=== PATIENT | female | born 1965 | race Caucasian/White ===

== ENCOUNTER 2017-04-04 16:51 | Inpatient (IN) | payer OTHER ==
[2017-04-04] MEDS ORDERED: Magnesium Sulfate 2 GM/100 ML BAG ONE (17:39)
[2017-04-04] MEDS ORDERED: Acetaminophen 325 MG TAB ONE (18:59)
[2017-04-04] MEDS ORDERED: Mag-Al 1200 mg/1200 mg/30 ML UDCUP PO PRN (20:35)
[2017-04-04] MEDS ORDERED: Bisacodyl 10 MG SUPP PR PRN (20:35)
[2017-04-04 23:22] VITALS: BMI 43.7
[2017-04-05] MEDS: Nicotine 21 MG PATCH TD SCH ×2 (00:12→22:15)
[2017-04-05] MEDS ORDERED: traZODone HCl 150 MG TAB PO SCH (01:30)
[2017-04-05] MEDS ORDERED: Pregabalin 50 MG CAP PO SCH (01:30)
[2017-04-05] MEDS: traZODone HCl 150 MG TAB PO SCH ×2 (01:52→20:08)
[2017-04-05] MEDS: Pregabalin 50 MG CAP PO SCH ×3 (01:53→20:09)
[2017-04-05] MEDS: Acetaminophen 325 MG TAB PO PRN ×3 (01:54→20:16)
[2017-04-05] MEDS: Albuterol Sulfate 2.5 mg/3 ml Neb NEB PRN (01:59)
[2017-04-05] MEDS ORDERED: Magnesium 2 GM/NS 0.9% 100 ML 2 GM in Premix Bag 1 BAG IVPB SCH (02:00)
[2017-04-05 03:14] LABS: Analyzer IN Cardio OR; Base Excess (BEa) -3.1 mEq/L (0 (+/-) 2.5); CO2 Tension 50.6 mmHg (35.0-45.0); Calcium, Ionized 1.3 mmol/L (1.12-1.30); Hematocrit-ABG 48.2 % (36.0-47.0); Hemoglobin (Hb) 15.3 g/dL (12.0-16.0); O2 Tension (PaO2) 63.7 mmHg (80.0-100.0); Puncture Site RRA; pH, Arterial 7.29 (7.35-7.45)
--- NOTE | 2017-04-05 04:06 | PDOC.EVN ---
Event Note - Event Note Event Note: Dr. Grier and I were called to room to evaluate patient, tachypneic, anxious, retracting. ABG showed hypercapnea of 50.6, pH 7.293. Pt had just been given a duoneb treatment, finished steroids and levaquin running. Breath sounds showed decreased air movement, patient in mod resp distress. Ordered mag, 10 ml treatment, 2nd IV started. Pt's respiratory status immediately improving with duoneb treatment. Discussed Bipap if not improving. Checked on after completion of treatments, pt resting comfortably, sleeping, no resp distress.
[2017-04-05 05:18] LABS: #Lymphocytes 0.6 thou/uL (1.20-3.40); #Monocytes 0.1 thou/uL (0.11-0.59); #Neutrophils 7.1 thou/uL (1.40-6.50); %Eosinophils 0.1 % (0.0-10.0); %Lymphocytes 7.7 % (21.0-51.0); %Monocytes 1.2 % (0.0-10.0); %Neutrophils 90.9 % (42.0-75.0); Hemoglobin 14.1 g/dL (12.0-16.0); Mean Corpuscular HGB CONC 31.2 g/dL (32.0-36.0); Mean Corpuscular Hemoglobin 31.6 pg (27.0-31.0); Platelet Count 171 thou/uL (130-400); RBC Distribution Width 12.1 % (11.5-14.5); Red Blood Cell (RBC) Count 4.47 mill/uL (4.20-5.40); White Blood Cell (WBC) Count 7.9 thou/uL (4.8-10.8)
[2017-04-05 05:30] LABS: Anion Gap 13 mmol/L (10-20); BUN (Urea Nitrogen) 19 mg/dL (9.8-20.1); Calc. Creatinine Clearance 166 mL/min (70-130); Calcium 9.4 mg/dL (7.8-10.44); Carbon Dioxide 20 mmol/L (22-29); Chloride 109 mmol/L (98-107); Estimated GFR-MDRD 88; Glucose 169 mg/dL (70-105); Potassium 4.2 mmol/L (3.5-5.1); Sodium 138 mmol/L (136-145)
[2017-04-05 06:25] LABS: Cardiac Risk 2.3 (Less than 4.5)
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
[2017-04-05] MEDS: Levothyroxine Sodium 25 MCG TAB PO SCH (06:56)
--- NOTE | 2017-04-05 08:32 | PDOC.FM ---
- Subjective Subjective: Pt states that she is still SOB, however it is improved from yesterday. She also complains of continued wet cough. She denies CP or heart palpitation. She states that she has continued anxiety and is asking for meds to help. She denies onset of new symptoms per ROS. There were no acute events over night. - Objective MAR Reviewed: Yes Vital Signs & Weight: Vital Signs (12 hours) Temp Pulse Resp BP Pulse Ox 04/05/17 06:45 107 H 25 H 97 04/05/17 04:00 98.1 F 109 H 19 121/64 96 04/05/17 01:48 108 H 32 H 94 L 04/04/17 23:52 98.0 F 100 26 H 119/73 93 L 04/04/17 23:06 96 26 H 92 L 04/04/17 20:35 98.1 F 102 H 24 H 122/83 91 L Weight Weight 112.066 kg I&O: 04/04/17 04/05/17 04/06/17 06:59 06:59 06:59 Intake Total 590 Output Total 350 Balance 240 Result Diagrams: 04/05/17 04:56 04/05/17 04:56 <Kip Mccracken - Last Filed: 04/05/17 08:30> - Objective Vital Signs & Weight: Vital Signs (12 hours) Temp Pulse Resp BP Pulse Ox 04/05/17 11:35 98.2 F 115 H 22 H 155/74 H 95 04/05/17 10:19 98.1 F 114 H 24 H 135/93 H 94 L 04/05/17 10:05 108 H 25 H 92 L 04/05/17 06:45 107 H 25 H 97 04/05/17 04:00 98.1 F 109 H 19 121/64 96 04/05/17 01:48 108 H 32 H 94 L Weight Weight 112.066 kg I&O: 04/04/17 04/05/17 04/06/17 06:59 06:59 06:59 Intake Total 590 Output Total 350 Balance 240 Result Diagrams: 04/05/17 04:56 04/05/17 04:56 <Ghulam Maciel - Last Filed: 04/05/17 12:36> Phys Exam - Physical Examination Constitutional: NAD HEENT: PERRLA, moist MMs Neck: no nodes, no JVD, full ROM Wheezing throughout Cardiovascular: RRR, no significant murmur difficult to hear dt wheezing Gastrointestinal: soft, non-tender Musculoskeletal: no edema Neurological: non-focal, normal sensation Lymphatic: no nodes Psychiatric: A&O x 3 Deviation from normal: Pt is anxious Skin: no rash <Kip Mccracken - Last Filed: 04/05/17 08:30> Dx/Plan (1) Acute respiratory failure with hypoxia Code(s): J96.01 - ACUTE RESPIRATORY FAILURE WITH HYPOXIA Status: Acute (2) COPD with acute exacerbation Code(s): J44.1 - CHRONIC OBSTRUCTIVE PULMONARY DISEASE W (ACUTE) EXACERBATION Status: Chronic (3) Anxiety Code(s): F41.9 - ANXIETY DISORDER, UNSPECIFIED Status: Chronic (4) Hypothyroid Code(s): E03.9 - HYPOTHYROIDISM, UNSPECIFIED Status: Chronic (5) History of torsades de pointes Code(s): Z86.79 - PERSONAL HISTORY OF OTHER DISEASES OF THE CIRCULATORY SYSTEM Status: Resolved - Plan Plan: 1. Acute hypoxic respiratory failure secondary to COPD exacerbation - Pt O2 sat in mid 90s on 3L. Work to wean O2 - continue IV steroids, consider moving to PO tomorrow - continue levaquin 2. Anxiety - pt having significant psychomotor symptoms - consider low dose ativan if symptoms persist 3. Hx of Torsades de points - pt had a short run in the ED, was given Mg and the rhythm resolved - monitor on tele 4. Hypothyroid - continue home synthroid <NawafKip - Last Filed: 04/05/17 08:30> Attending Addendum - Attending Addendum I personally evaluated the patient and discussed the management with Dr. Mccracken. I agree with the History, Examination, Assessment and Plan documented above with any addition or exceptions noted below. Patient with severe bronchoconstriction, wheezing, and moderate respiratory distress despite Mg, steroids, and multiple rounds of nebs. No lung findings to suggest infiltrate or infectious process. She is requiring supplemental O2 to maintain normal oxygenation. She becomes short of breath with minimal conversation, even immediately after a neb treatment. Maximize therapy and consider another round of Mg if she decompensates. Will discuss case with Pulmonology. She is also very anxious likely due to hypoxia and air hunger and underlying chronic anxiety. Will give trial of small dose of Ativan for calming , but need to closely monitor and ensure it does not suppress her respiratory drive. <Ghulam Maciel R - Last Filed: 04/05/17 12:36>
[2017-04-05] MEDS: Mometasone/Formoterol 120 PUFF INHALER INH SCH ×2 (09:56→18:38)
[2017-04-05] MEDS: Enoxaparin Sodium 40 MG/0.4 ML SYRINGE SC SCH (10:22)
[2017-04-05] MEDS: Sodium Chloride 0.9% 10 ML ONE ×3 (10:22→18:05)
[2017-04-05] MEDS ORDERED: Lorazepam 2 MG/ML VIAL SLOW IVP SCH (12:00)
[2017-04-05] MEDS ORDERED: Lorazepam 0.5 MG TAB PO SCH (12:00)
[2017-04-05] MEDS ORDERED: Lorazepam 2 MG/ML VIAL ONE (12:25)
[2017-04-05] MEDS ORDERED: Furosemide 20 MG/2 ML VIAL SLOW IVP SCH (20:45)
[2017-04-06] MEDS ORDERED: Lorazepam 0.5 MG TAB PO SCH (01:00)
--- NOTE | 2017-04-06 01:18 | CON ---
DATE OF CONSULTATION: 04/05/2017 SERVICE: Pulmonary Medicine. REASON FOR CONSULTATION: COPD exacerbation. HISTORY OF PRESENT ILLNESS: The patient is a 51-year-old white female with past medical history sign ificant for COPD. This was diagnosed roughly 10 years ago. She takes Symbicort basically around the clock. She does not take a scheduled twice daily. She takes it much more frequent than that. She also has albuterol nebulizers in different forms. She was in her usual state of health until roughly one month ago when she had a steady increase in dyspnea on exertion. She has new onset swelling in the bilateral lower extremities. She presented to the emergency department and was treated for COPD exacerbation. Her volume status was also addressed. She feels much improved today compared to yeste rday. She was not having any fevers. She did have cough, productive of green yellow sputum. She de nies any current palpitations, or chest discomfort other than when she coughs. PAST MEDICAL HISTORY: 1. COPD. 2. Anxiety disorder. 3. Dyslipidemia. 4. Hypothyroidism. 5. Vitiligo. 6. Hepatitis C, status post course of therapy. PAST SURGICAL HISTORY: 1. section x2. 2. Sinus surgery. 3. I&D of scalp. 4. Bilateral knee replacements. 5. Rotator cuff surgery on the right. 6. Back surgery with hardware in place. ALLERGIES: MORPHINE, KEFLEX. MEDICATIONS: List of her inpatient medications were reviewed, a couple of small updates were made. FAMILY HISTORY: Noncontributory. SOCIAL HISTORY: She has a [id number] history of smoking and continues to smoke 3/4 of a pack on a daily basis. She uses alcohol rarely. Outside of marijuana, she denies any illicit drugs. She has no exposure to chemicals, dust, asbestosis, or tuberculosis. REVIEW OF SYSTEMS: General, head, ears, eyes, nose, throat, cardiovascular, respiratory, GI, , mus culoskeletal, neurologic and skin is negative except as mentioned in the HPI. PHYSICAL EXAMINATION: VITAL SIGNS: Afebrile, pulse 123, blood pressure 143/94, respirations 26, saturation 95% on 2-03/27 li ters nasal cannula. GENERAL: The patient is awake and alert, in no apparent distress. LUNGS: Decent air entry. There are crackles, rhonchi, and wheezing all present. She has very reduc ed air entry, particularly with exhalation. She has a prolonged expiratory phase. HEART: Normal rate. Tachycardic. Regular. ABDOMEN: Soft, nontender, nondistended. Bowel sounds are positive. MUSCULOSKELETAL: No cyanosis or clubbing. There is 1-2+ pitting in the bilateral lower extremities. GENITOURINARY: No Falk. NEUROLOGIC: Grossly nonfocal. LABORATORY DATA: WBC 7.9, hemoglobin 14.1, platelets 171,000. PH 7.29, pCO2 50.6, pO2 63. Basic ut tabolic profile was essentially unremarkable. Liver function studies are unremarkable. BNP is negat kyra and troponin is negative x1. TSH is normal. Urinalysis is unremarkable. Urine drug screen is n egative. IMAGING: Chest x-ray demonstrates motion artifact. Soft tissue attenuation reduces the sensitivity of the study. No obvious acute cardiopulmonary abnormality is identified. ASSESSMENT: 1. Acute hypoxic respiratory failure. 2. Chronic obstructive pulmonary disease with acute exacerbation (versus asthma). 3. Obstructive sleep apnea, suspected. 4. Minimal volume overload. PLAN: We will continue her nebulized medications, antibiotics, and steroids. Steroids will be reduc ed to 40 mg of prednisone on a daily basis. This can be interrupted after a period of 2 weeks (treat ing an asthma exacerbation, not COPD exacerbation). She does have minimal volume overload. I will g kyra her a dose of Lasix tomorrow morning. In the outpatient setting, she will need to follow up with me. I intend to form a logical COPD diagnosis, and sent her for polysomnogram as my suspicion is sh james suffers from obstructive sleep apnea given her multiple features and symptoms. I will continue to follow up for the time being.
[2017-04-06 05:25] LABS: #Lymphocytes 0.8 thou/uL (1.20-3.40); #Monocytes 0.6 thou/uL (0.11-0.59); #Neutrophils 13.1 thou/uL (1.40-6.50); %Eosinophils 0.1 % (0.0-10.0); %Lymphocytes 5.4 % (21.0-51.0); %Monocytes 4.4 % (0.0-10.0); %Neutrophils 90.1 % (42.0-75.0); Mean Corpuscular HGB CONC 31.9 g/dL (32.0-36.0); Mean Corpuscular Hemoglobin 32.6 pg (27.0-31.0); Platelet Count 160 thou/uL (130-400); Red Blood Cell (RBC) Count 4.28 mill/uL (4.20-5.40); White Blood Cell (WBC) Count 14.5 thou/uL (4.8-10.8)
[2017-04-06 05:38] LABS: Anion Gap 11 mmol/L (10-20); BUN (Urea Nitrogen) 23 mg/dL (9.8-20.1); Calc. Creatinine Clearance 151 mL/min (70-130); Calcium 9.4 mg/dL (7.8-10.44); Carbon Dioxide 28 mmol/L (22-29); Chloride 105 mmol/L (98-107); Estimated GFR-MDRD 79; Glucose 130 mg/dL (70-105); Potassium 5.2 mmol/L (3.5-5.1); Sodium 139 mmol/L (136-145)
[2017-04-06] MEDS: Levothyroxine Sodium 25 MCG TAB PO SCH (05:54)
[2017-04-06] MEDS: Furosemide 20 MG/2 ML VIAL SLOW IVP SCH (05:54)
[2017-04-06] MEDS: Acetaminophen 325 MG TAB PO PRN ×3 (06:02→20:35)
[2017-04-06] MEDS ORDERED: Sodium Chloride 0.9% 1,000 ML IV SCH (06:45)
--- NOTE | 2017-04-06 06:47 | PDOC.FM ---
- Subjective Subjective: Pt feels better today and had improved, but still significant SOB. Productive cough continues. She states that she feels less anxious. She denies symptoms of chest pain, palpitation, dizziness, muscle pain/weakness and all other symptoms in ROS. There were no acute events over night. - Objective MAR Reviewed: Yes Vital Signs & Weight: Vital Signs (12 hours) Temp Pulse Resp BP Pulse Ox 04/06/17 04:00 99.2 F 104 H 22 H 133/74 95 04/06/17 02:24 108 H 28 H 97 04/05/17 22:34 112 H 32 H 96 04/05/17 20:05 98.2 F 121 H 24 H 139/97 H 94 L Weight Weight 112.066 kg I&O: 04/04/17 04/05/17 04/06/17 06:59 06:59 06:59 Intake Total 590 Output Total 350 Balance 240 Result Diagrams: 04/06/17 05:00 04/06/17 05:00 <Kip Mccracken - Last Filed: 04/06/17 08:33> - Objective Vital Signs & Weight: Vital Signs (12 hours) Temp Pulse Resp BP BP Pulse Ox 04/06/17 10:49 105 H 20 96 04/06/17 08:05 98.6 F 112 H 24 H 110/74 93 L 04/06/17 07:26 116 H 30 H 95 04/06/17 04:00 99.2 F 104 H 22 H 133/74 95 04/06/17 02:24 108 H 28 H 97 Weight Weight 112.576 kg I&O: 04/05/17 04/06/17 04/07/17 06:59 06:59 06:59 Intake Total 590 850 Output Total 350 1100 Balance 240 -250 Result Diagrams: 04/06/17 05:00 04/06/17 05:00 <Ghulam Maciel - Last Filed: 04/06/17 11:27> Phys Exam - Physical Examination Pt has significant work of breathing HEENT: PERRLA, moist MMs Neck: no nodes Wheezing throughout, somewhat improved from yesterday Cardiovascular: RRR, no significant murmur Difficult exam dt wheezing Gastrointestinal: soft, non-tender, no distention, positive bowel sounds 1+ pitting edema to knee bl Neurological: non-focal, normal sensation, moves all 4 limbs Lymphatic: no nodes Psychiatric: normal affect, A&O x 3 Skin: no rash <Kip Mccracken - Last Filed: 04/06/17 08:33> Dx/Plan (1) Acute respiratory failure with hypoxia Code(s): J96.01 - ACUTE RESPIRATORY FAILURE WITH HYPOXIA Status: Acute (2) COPD with acute exacerbation Code(s): J44.1 - CHRONIC OBSTRUCTIVE PULMONARY DISEASE W (ACUTE) EXACERBATION Status: Chronic (3) Anxiety Code(s): F41.9 - ANXIETY DISORDER, UNSPECIFIED Status: Chronic (4) Hypothyroid Code(s): E03.9 - HYPOTHYROIDISM, UNSPECIFIED Status: Chronic (5) History of torsades de pointes Code(s): Z86.79 - PERSONAL HISTORY OF OTHER DISEASES OF THE CIRCULATORY SYSTEM Status: Resolved (6) Hyperkalemia Code(s): E87.5 - HYPERKALEMIA Status: Acute - Plan Plan: 1. Acute hypoxic respiratory failure secondary to COPD exacerbation - Pt O2 sat in mid 90s on 2L. Work to wean O2 - Pulm, Dr Cardona, has been consulted. - continue PO steroids and abx - Pt has started to show improvement in respiratory rate and pulse over the past 18 hours. - Pt will need outpt follow up and treatment w/pulm 2. Anxiety - Increased dose of cymbalta today, will recommend her dosing be reevaluated by PCP upon discharge - ativan is available as PRN, however will attempt to no use dt concern for respiratory suppression. 3. Hx of Torsades de points - per history had a short run in the ED, was given Mg and the rhythm resolved. Unable to find EKG of this rhythm, per history it was seen on monitor in ED. - monitor on tele 4. Hypothyroid - continue home synthroid 5. Hyperkalemia - Pt will get lasix today, will repeat BMP in PM and consider further treatment to lower K if it remains elevated or if she becomes symptomatic - Currently pt has no msk symptoms attributed to elevated K or tele abnormalities, therefore it is reasonable to slowly lower K. Dispo: pt is stable and improving. Will consider discharge when O2 need begins to improve, likely in the next 48 hours <Kip Mccracken - Last Filed: 04/06/17 08:33> Attending Addendum - Attending Addendum I personally evaluated the patient and discussed the management with Dr. Mccracken. I agree with the History, Examination, Assessment and Plan documented above with any addition or exceptions noted below. Patient with some improvement today. Pulm on board. Continue nebs, steroids. Anticipate slow recovery due to her degree on bronchospasm and increased respiratory effort. Would consider that if she has been using Symbicort continuously that she may be having some reflex bronchospasm. <Ghulam Maciel - Last Filed: 04/06/17 11:27>
[2017-04-06] MEDS: Mometasone/Formoterol 120 PUFF INHALER INH SCH ×2 (07:27→18:34)
[2017-04-06] MEDS: Pregabalin 50 MG CAP PO SCH ×2 (09:05→20:31)
[2017-04-06] MEDS: DULoxetine 30 MG CAP PO SCH (09:06)
[2017-04-06] MEDS: predniSONE 20 MG TAB PO SCH (09:07)
[2017-04-06] MEDS: Enoxaparin Sodium 40 MG/0.4 ML SYRINGE SC SCH (09:07)
--- NOTE | 2017-04-06 18:31 | PDOC.EVN ---
Event Note - Event Note Event Note: At apprx 1810 physician was paged to pts bedside dt being found with O2 sats in the mid 70s. RT was called for stat breathing treatment. It was then discovered that at some point the patients O2 tubing had been accidentally disconnected from the wall. With resumption of O2, her saturation quickly recovered to 99 on 50% O2 by mask. PE found wheezing in all lung cabrera consistent with this morning's exam. Pt is now stable and maintaining her O2 with RT at bedside. Plan to start CPAP/BiPAP HS. <Kip Mccracken - Last Filed: 04/06/17 18:25> Attending Addendum - Attending Addendum I personally evaluated the patient and discussed the management with Dr. Mccracken. I agree with the History, Examination, Assessment and Plan documented above with any addition or exceptions noted below. <Jun Neal - Last Filed: 04/06/17 20:02>
--- NOTE | 2017-04-06 19:39 | PRG ---
DATE OF SERVICE: 04/06/2017 SERVICE: Pulmonary Medicine. INTERVAL HISTORY: The patient is doing really quite well from a respiratory standpoint. Her shortne ss of breath has improved fairly dramatically over the past 24 hours. She currently denies any fever s or chills. She is coughing and bringing up a little bit of sputum. This seems to be slowing down. PHYSICAL EXAMINATION: VITAL SIGNS: Afebrile, pulse 112, blood pressure 110/74, respirations 20, saturation 96% on 3 liters nasal cannula. GENERAL: The patient is awake and alert, in no apparent distress. LUNGS: Slightly improved air entry. There is a prolonged expiratory phase with wheezing and crackle s both appreciated. HEART: Normal rate, regular. ABDOMEN: Soft, nontender, nondistended. Bowel sounds positive. MUSCULOSKELETAL: No cyanosis or clubbing. There is 1-2+ pitting in the bilateral lower extremities. GENITOURINARY: No Falk. NEUROLOGIC: Grossly nonfocal. LABORATORY DATA: Potassium 5.2. Basic metabolic profile is otherwise unremarkable. TSH was previou sly normal. WBC 14.5, hemoglobin 14.0. Platelets 160,000. Neutrophil count is 90%, which is downtr ending. ASSESSMENT: 1. Acute hypoxic and hypercapnic respiratory failure. 2. Chronic obstructive pulmonary disease with acute exacerbation (versus asthma). 3. Obstructive sleep apnea, suspected. 4. Volume overload, improving. PLAN: We will continue our steroids, nebulized medications, and antibiotics. From my perspective, t he patient is approaching a place where she can be considered for transition out of the hospital. We will continue to wean oxygen as tolerated. I would like for her to visit with me in the outpatient setting, so that we can clarify her underlying lung process, and evaluate her for sleep apnea. I do think she would benefit from being on CPAP therapy if indicated. We will also repeat her ABG in her chronic stable state to see whether or not she is chronic CO2 retainer. This is very likely given he r vague underlying lung disease.
[2017-04-06] MEDS: traZODone HCl 150 MG TAB PO SCH (20:32)
[2017-04-06] MEDS: Nicotine 21 MG PATCH TD SCH (20:35)
[2017-04-07] MEDS ORDERED: Lorazepam 0.5 MG TAB PO SCH (00:30)
[2017-04-07] MEDS: Acetaminophen 325 MG TAB PO PRN ×3 (04:21→20:31)
[2017-04-07 05:30] LABS: #Lymphocytes 1.4 thou/uL (1.20-3.40); #Monocytes 0.7 thou/uL (0.11-0.59); %Basophils 0.4 % (0.0-1.0); %Eosinophils 0.3 % (0.0-10.0); %Lymphocytes 17.6 % (21.0-51.0); %Monocytes 8.2 % (0.0-10.0); %Neutrophils 73.5 % (42.0-75.0); Hemoglobin 13.3 g/dL (12.0-16.0); Mean Corpuscular HGB CONC 31.1 g/dL (32.0-36.0); Mean Corpuscular Hemoglobin 32.3 pg (27.0-31.0); Mean Platelet Volume 7.2 fL (7.4-10.4); Platelet Count 150 thou/uL (130-400); RBC Distribution Width 12.1 % (11.5-14.5); Red Blood Cell (RBC) Count 4.14 mill/uL (4.20-5.40); White Blood Cell (WBC) Count 8.2 thou/uL (4.8-10.8)
[2017-04-07 05:51] LABS: Anion Gap 10 mmol/L (10-20); BUN (Urea Nitrogen) 25 mg/dL (9.8-20.1); Calc. Creatinine Clearance 180 mL/min (70-130); Calcium 9.4 mg/dL (7.8-10.44); Carbon Dioxide 34 mmol/L (22-29); Chloride 101 mmol/L (98-107); Estimated GFR-MDRD Greater than 90; Glucose 121 mg/dL (70-105); Potassium 4.3 mmol/L (3.5-5.1); Sodium 141 mmol/L (136-145)
[2017-04-07] MEDS: Levothyroxine Sodium 25 MCG TAB PO SCH (05:57)
[2017-04-07] MEDS: Furosemide 20 MG/2 ML VIAL SLOW IVP SCH (05:57)
--- NOTE | 2017-04-07 07:07 | PDOC.FM ---
- Subjective Subjective: Today pt states that she is still significantly SOB, however does better after a neb and with her CPAP last night. She denies chest pain or lightheadedness. She states that her anxiety is improving. After the previously documented event of having her O2 disconnected, there were no acute events over night. She denies all other symptoms in ROS. - Objective Vital Signs & Weight: Vital Signs (12 hours) Temp Pulse Resp BP BP Pulse Ox 04/07/17 04:00 98 F 104 H 22 H 168/75 H 100 04/07/17 02:38 103 H 26 H 94 L 04/06/17 22:20 109 H 30 H 96 04/06/17 20:30 97.8 F 98 20 132/86 96 04/06/17 20:26 96 18 96 Weight Weight 112.945 kg I&O: 04/06/17 04/07/17 04/08/17 06:59 06:59 06:59 Intake Total 850 1780 Output Total 1100 1900 Balance -250 -120 Result Diagrams: 04/07/17 04:53 04/07/17 04:53 Phys Exam - Physical Examination Pt is breathing easier than yesterday, but has continued increased effort HEENT: PERRLA, moist MMs Neck: no nodes Wheezing throughout, worse in the bases. Improved from yesterday. Decreased air movement Cardiovascular: no significant murmur Tachy Gastrointestinal: soft, non-tender Trace edema, improved Neurological: non-focal, normal sensation Lymphatic: no nodes Psychiatric: normal affect, A&O x 3 Skin: no rash Dx/Plan (1) Acute respiratory failure with hypoxia Code(s): J96.01 - ACUTE RESPIRATORY FAILURE WITH HYPOXIA Status: Acute (2) COPD with acute exacerbation Code(s): J44.1 - CHRONIC OBSTRUCTIVE PULMONARY DISEASE W (ACUTE) EXACERBATION Status: Chronic (3) Anxiety Code(s): F41.9 - ANXIETY DISORDER, UNSPECIFIED Status: Chronic (4) Hypothyroid Code(s): E03.9 - HYPOTHYROIDISM, UNSPECIFIED Status: Chronic (5) History of torsades de pointes Code(s): Z86.79 - PERSONAL HISTORY OF OTHER DISEASES OF THE CIRCULATORY SYSTEM Status: Resolved (6) Hyperkalemia Code(s): E87.5 - HYPERKALEMIA Status: Acute - Plan Plan: . Acute hypoxic respiratory failure secondary to COPD exacerbation - Pt O2 sat in mid 90s on 2L. Work to wean O2, was unable to do so yesterday - Pulm, Dr Cardona, has been consulted. - continue PO steroids and abx - Pt continues to have elevated RR, HR, and increased O2 demand as she is not normally on O2. - Pt will need outpt follow up and treatment w/pulm - Pt is clinically improving slowly 2. Anxiety - Increased dose of cymbalta today, will recommend her dosing be reevaluated by PCP upon discharge - Improved psychomotor symptoms from admission. 3. Hx of Torsades de points - per history had a short run in the ED, was given Mg and the rhythm resolved. Unable to find EKG of this rhythm, per history it was seen on monitor in ED. - monitor on tele 4. Hypothyroid - continue home synthroid 5. Hyperkalemia - Pt will get lasix today, will repeat BMP in PM and consider further treatment to lower K if it remains elevated or if she becomes symptomatic - Currently pt has no msk symptoms attributed to elevated K or tele abnormalities, therefore it is reasonable to slowly lower K. Dispo: pt is stable and improving. Will consider discharge when O2 need and effort to breathe shows significant improvement.
[2017-04-07] MEDS: Mometasone/Formoterol 120 PUFF INHALER INH SCH ×2 (07:21→18:57)
[2017-04-07] MEDS: predniSONE 20 MG TAB PO SCH (09:38)
[2017-04-07] MEDS: DULoxetine 30 MG CAP PO SCH (09:39)
[2017-04-07] MEDS: Enoxaparin Sodium 40 MG/0.4 ML SYRINGE SC SCH (09:39)
[2017-04-07] MEDS: Pregabalin 50 MG CAP PO SCH ×2 (12:26→20:30)
--- NOTE | 2017-04-07 19:00 | PRG ---
DATE OF SERVICE: 04/07/2017 SUBJECTIVE: She is better. She is still short of breath. OBJECTIVE: VITAL SIGNS: Sats are 92 on 2 liters, pulse 125, temperature 98, blood pressure 119/71. CHEST: Decreased breath sounds, prolonged expiration. CARDIAC: Sinus tachycardia. ABDOMEN: Soft. LABORATORY DATA: White count 8000, H&H 13 and 42, platelet count normal. Electrolytes are normal. IMPRESSION: 1. Chronic obstructive pulmonary disease exacerbation. 2. Bronchitis. 3. Pneumonia. PLAN: Continue antibiotics, nebulizer treatments, steroids.
[2017-04-07] MEDS: traZODone HCl 150 MG TAB PO SCH (20:29)
[2017-04-07] MEDS: Nicotine 21 MG PATCH TD SCH (20:31)
[2017-04-08] MEDS: Acetaminophen 325 MG TAB PO PRN (01:58)
[2017-04-08 05:15] LABS: #Lymphocytes 1.9 thou/uL (1.20-3.40); #Monocytes 0.6 thou/uL (0.11-0.59); #Neutrophils 2.7 thou/uL (1.40-6.50); %Basophils 0.2 % (0.0-1.0); %Eosinophils 0.7 % (0.0-10.0); %Lymphocytes 36.5 % (21.0-51.0); %Monocytes 11.3 % (0.0-10.0); %Neutrophils 51.3 % (42.0-75.0); Hemoglobin 12.9 g/dL (12.0-16.0); Mean Corpuscular HGB CONC 31.5 g/dL (32.0-36.0); Mean Corpuscular Hemoglobin 32.5 pg (27.0-31.0); Mean Platelet Volume 6.7 fL (7.4-10.4); Platelet Count 146 thou/uL (130-400); RBC Distribution Width 11.9 % (11.5-14.5); Red Blood Cell (RBC) Count 3.96 mill/uL (4.20-5.40); White Blood Cell (WBC) Count 5.2 thou/uL (4.8-10.8)
[2017-04-08 05:24] LABS: Anion Gap 9 mmol/L (10-20); BUN (Urea Nitrogen) 21 mg/dL (9.8-20.1); Calc. Creatinine Clearance 175 mL/min (70-130); Calcium 9.1 mg/dL (7.8-10.44); Carbon Dioxide 37 mmol/L (22-29); Chloride 100 mmol/L (98-107); Estimated GFR-MDRD Greater than 90; Glucose 95 mg/dL (70-105); Potassium 4.1 mmol/L (3.5-5.1); Sodium 142 mmol/L (136-145)
[2017-04-08] MEDS: Levothyroxine Sodium 25 MCG TAB PO SCH (06:04)
[2017-04-08] MEDS: Furosemide 20 MG/2 ML VIAL SLOW IVP SCH (06:04)
[2017-04-08] MEDS: Mometasone/Formoterol 120 PUFF INHALER INH SCH ×2 (07:02→18:36)
--- NOTE | 2017-04-08 07:35 | PDOC.FM ---
- Subjective Subjective: Pt states that she has had significant improvement in SOB over the past 24 hours. She denies onset of new symptoms. She admits to continued cough. She states that her anxiety has improved with CPAP. There were no acute events over night. - Objective MAR Reviewed: Yes Vital Signs & Weight: Vital Signs (12 hours) Temp Pulse Resp BP Pulse Ox 04/08/17 07:03 93 L 04/08/17 07:02 93 16 93 L 04/08/17 06:58 93 16 93 L 04/08/17 04:00 97.9 F 100 24 H 110/73 98 04/08/17 02:44 94 20 94 L 04/07/17 22:44 98 18 100 04/07/17 20:25 98.3 F 103 H 24 H 97/61 92 L Weight Weight 112.576 kg I&O: 04/07/17 04/08/17 04/09/17 06:59 06:59 06:59 Intake Total 1780 640 Output Total 1900 3325 Balance -120 -4830 Result Diagrams: 04/08/17 04:55 04/08/17 04:55 <Kip Mccracken - Last Filed: 04/08/17 07:33> - Objective Vital Signs & Weight: Vital Signs (12 hours) Temp Pulse Resp BP BP Pulse Ox 04/08/17 13:55 77 18 92 L 04/08/17 10:31 91 20 93 L 04/08/17 07:46 98.9 F 105 H 22 H 93 L 04/08/17 07:10 98.9 F 105 H 22 H 98/56 L 93 L 04/08/17 07:03 93 L 04/08/17 07:02 93 16 93 L 04/08/17 06:58 93 16 93 L 04/08/17 04:00 97.9 F 100 24 H 110/73 98 Weight Weight 112.576 kg I&O: 04/07/17 04/08/17 04/09/17 06:59 06:59 06:59 Intake Total 1780 640 Output Total 1900 3325 Balance -120 -4101 Result Diagrams: 04/08/17 04:55 04/08/17 04:55 <Jun Neal - Last Filed: 04/08/17 15:29> Phys Exam - Physical Examination Constitutional: NAD HEENT: moist MMs Neck: full ROM wheezing throughout, improved. Increaesd air movemet from yesterday, still limited Cardiovascular: RRR, no significant murmur Gastrointestinal: soft, non-tender, no distention Musculoskeletal: no edema Neurological: non-focal, normal sensation Psychiatric: normal affect, A&O x 3 Skin: no rash <Kip Mccracken - Last Filed: 04/08/17 07:33> Dx/Plan (1) Acute respiratory failure with hypoxia Code(s): J96.01 - ACUTE RESPIRATORY FAILURE WITH HYPOXIA Status: Acute (2) COPD with acute exacerbation Code(s): J44.1 - CHRONIC OBSTRUCTIVE PULMONARY DISEASE W (ACUTE) EXACERBATION Status: Chronic (3) Anxiety Code(s): F41.9 - ANXIETY DISORDER, UNSPECIFIED Status: Chronic (4) Hypothyroid Code(s): E03.9 - HYPOTHYROIDISM, UNSPECIFIED Status: Chronic (5) History of torsades de pointes Code(s): Z86.79 - PERSONAL HISTORY OF OTHER DISEASES OF THE CIRCULATORY SYSTEM Status: Resolved (6) Hyperkalemia Code(s): E87.5 - HYPERKALEMIA Status: Resolved - Plan Plan: . Acute hypoxic respiratory failure secondary to COPD exacerbation - Pt O2 sat in mid 90s on 0.5L. Continue to work to wean O2, pt has made improvement over past 24 hours - Pulm, Dr Cardona, has been consulted. - continue PO steroids and abx - Vitals improving. Typically normal HR and RR - Pt will need outpt follow up and treatment w/pulm 2. Anxiety - Increased dose of cymbalta today, will recommend her dosing be reevaluated by PCP upon discharge - Improved psychomotor symptoms from admission. 3. Hx of Torsades de points - per history had a short run in the ED, was given Mg and the rhythm resolved. Unable to find EKG of this rhythm, per history it was seen on monitor in ED. - monitor on tele 4. Hypothyroid - continue home synthroid 5. Hyperkalemia - Resolved. Monitor BMP Dispo: pt is stable and improving. Likely ready for dc tomorrow <Kip Mccracken - Last Filed: 04/08/17 07:33> Attending Addendum - Attending Addendum I personally evaluated the patient and discussed the management with Dr. Mccracken. I agree with and repeated the History, Examination, Assessment and Plan documented above with any addition or exceptions noted below. Improving, continue steroids and nebs. Monitor QTc. Replete K PRN. <Jun Neal - Last Filed: 04/08/17 15:29>
[2017-04-08] MEDS: predniSONE 20 MG TAB PO SCH (09:10)
[2017-04-08] MEDS: Pregabalin 50 MG CAP PO SCH ×2 (09:10→20:34)
[2017-04-08] MEDS: Enoxaparin Sodium 40 MG/0.4 ML SYRINGE SC SCH (09:11)
[2017-04-08] MEDS: DULoxetine 30 MG CAP PO SCH (09:11)
[2017-04-08] MEDS ORDERED: Sodium Chloride Nasal 15 GM TUBE EA NARE PRN (11:15)
--- NOTE | 2017-04-08 19:08 | PRG ---
DATE OF SERVICE: 04/08/2017 SUBJECTIVE: She is sleeping on a BiPAP this morning. She is less short of breath. She is still cou ghing. PHYSICAL EXAMINATION: VITAL SIGNS: Sats are 92 on room air, respirations 18, temperature 99, blood pressure 98/56. I's an d O's 640 in and 3225 out. CHEST: Bilateral crackles, minimal wheezing. CARDIAC: Normal S1, S2. ABDOMEN: Soft, no masses. LABORATORY DATA: White count 5,000, hemoglobin and hematocrit 12 and 40, platelet count is low. Shahrzad ctrolytes are normal. IMPRESSION: 1. Morbid obesity, sleep apnea. 2. Respiratory failure. 3. Chronic obstructive pulmonary disease. PLAN: Continue aggressive PT and supportive care. We will follow.
[2017-04-08] MEDS: Nicotine 21 MG PATCH TD SCH (20:34)
[2017-04-08] MEDS: traZODone HCl 150 MG TAB PO SCH (20:35)
[2017-04-08] MEDS ORDERED: Lorazepam 0.5 MG TAB PO SCH (23:00)
[2017-04-09 04:49] LABS: #Eosinphils 0.1 thou/uL (0.0-0.7); #Lymphocytes 2.8 thou/uL (1.20-3.40); #Monocytes 0.8 thou/uL (0.11-0.59); #Neutrophils 3.3 thou/uL (1.40-6.50); %Basophils 0.5 % (0.0-1.0); %Eosinophils 1.3 % (0.0-10.0); %Lymphocytes 40.4 % (21.0-51.0); %Monocytes 10.9 % (0.0-10.0); %Neutrophils 46.9 % (42.0-75.0); Hemoglobin 12.8 g/dL (12.0-16.0); Mean Corpuscular HGB CONC 31.1 g/dL (32.0-36.0); Mean Corpuscular Hemoglobin 32.1 pg (27.0-31.0); Mean Platelet Volume 6.9 fL (7.4-10.4); Platelet Count 147 thou/uL (130-400); RBC Distribution Width 11.7 % (11.5-14.5); Red Blood Cell (RBC) Count 3.99 mill/uL (4.20-5.40)
[2017-04-09 05:08] LABS: Anion Gap 11 mmol/L (10-20); BUN (Urea Nitrogen) 19 mg/dL (9.8-20.1); Calc. Creatinine Clearance 175 mL/min (70-130); Calcium 8.7 mg/dL (7.8-10.44); Carbon Dioxide 33 mmol/L (22-29); Chloride 101 mmol/L (98-107); Estimated GFR-MDRD Greater than 90; Glucose 92 mg/dL (70-105); Potassium 3.7 mmol/L (3.5-5.1); Sodium 141 mmol/L (136-145)
--- NOTE | 2017-04-09 05:09 | PDOC.FM ---
- Subjective Subjective: Patient states she had a good night. She states her SOB is still present at all times. She had an episode overnight where her O2 came off and she desaturated down to the low 80s. Her O2 was put back on and she returned to the low 90s O2 saturations. She has been able to get up and move around with minimal SOB. She states she didn't sleep great, but is feeling better. She denies chest pain, fevers, n/v/d. No other complaints offered. - Objective Vital Signs & Weight: Vital Signs (12 hours) Temp Pulse Resp BP Pulse Ox 04/09/17 02:14 105 H 22 H 84 L 04/08/17 22:19 102 H 18 93 L 04/08/17 20:39 98.5 F 92 18 118/74 93 L 04/08/17 20:00 98.5 F 92 18 93 L 04/08/17 18:34 89 16 94 L Weight Weight 112.576 kg I&O: 04/07/17 04/08/17 04/09/17 06:59 06:59 06:59 Intake Total 6698 136 0139 Output Total 1900 3325 1550 Balance -212 -2685 -350 Result Diagrams: 04/09/17 04:40 04/09/17 04:40 <Terry Troy - Last Filed: 04/09/17 07:40> - Objective Vital Signs & Weight: Vital Signs (12 hours) Temp Pulse Resp BP BP Pulse Ox 04/09/17 12:18 98.3 F 102 H 16 101/59 L 97 04/09/17 11:04 95 18 92 L 04/09/17 07:24 95 16 92 L 04/09/17 07:21 95 16 92 L 04/09/17 07:10 97.9 F 86 20 100/59 L 91 L 04/09/17 05:50 97.4 F L 88 20 123/71 93 L 04/09/17 02:20 22 H 92 L 04/09/17 02:14 105 H 22 H 84 L Weight Weight 112.576 kg I&O: 04/08/17 04/09/17 04/10/17 06:59 06:59 06:59 Intake Total 640 2020 Output Total 3325 3150 Balance -9146 -7020 Result Diagrams: 04/09/17 04:40 04/09/17 04:40 <Rosa Maria Meza - Last Filed: 04/09/17 13:52> Phys Exam - Physical Examination HEENT: PERRLA, moist MMs Neck: no nodes Respiratory: no wheezing Diminished breath sounds throughout. Cardiovascular: RRR, no significant murmur Gastrointestinal: soft, non-tender, no distention, positive bowel sounds Musculoskeletal: no edema, pulses present Neurological: non-focal, normal sensation, moves all 4 limbs Lymphatic: no nodes Psychiatric: normal affect, A&O x 3 Skin: no rash <Terry Troy - Last Filed: 04/09/17 07:40> Dx/Plan (1) Acute respiratory failure with hypoxia Code(s): J96.01 - ACUTE RESPIRATORY FAILURE WITH HYPOXIA Status: Acute (2) Anxiety Code(s): F41.9 - ANXIETY DISORDER, UNSPECIFIED Status: Chronic (3) COPD with acute exacerbation Code(s): J44.1 - CHRONIC OBSTRUCTIVE PULMONARY DISEASE W (ACUTE) EXACERBATION Status: Chronic (4) Hypothyroid Code(s): E03.9 - HYPOTHYROIDISM, UNSPECIFIED Status: Chronic (5) History of torsades de pointes Code(s): Z86.79 - PERSONAL HISTORY OF OTHER DISEASES OF THE CIRCULATORY SYSTEM Status: Resolved (6) Hyperkalemia Code(s): E87.5 - HYPERKALEMIA Status: Resolved - Plan Plan: . Acute hypoxic respiratory failure secondary to COPD exacerbation - Pt O2 sat in mid 90s on 1L. Continue to work to wean O2, pt has made improvement over past 24 hours - Pulm, Dr Cardona, has been consulted. - continue PO steroids and abx - Vitals improving. Typically normal HR and RR - Pt will need outpt follow up and treatment w/pulm - Will continue to monitor O2 requirements 2. Anxiety - Increased dose of cymbalta today, will recommend her dosing be reevaluated by PCP upon discharge - Improved psychomotor symptoms from admission. 3. Hx of Torsades de points - per history had a short run in the ED, was given Mg and the rhythm resolved. Unable to find EKG of this rhythm, per history it was seen on monitor in ED. - monitor on tele 4. Hypothyroid - continue home synthroid 5. Hyperkalemia - Resolved. Monitor BMP Dispo: pt is stable and improving. If patient can wean off O2 today will make discharge planning from there. <Terry Troy - Last Filed: 04/09/17 07:40> Attending Addendum - Attending Addendum I personally evaluated the patient and discussed the management with Dr. Troy I agree with the History, Examination, Assessment and Plan documented above with any addition or exceptions noted below- Patient sleeping with CPAP in place ; States that SOB is improved. Afebrile VSS A/P: 1) COPD exacerbation- improving ; continue steroids/nebs. Continue to wean O2 as tolerated 2) Suspected STEVEN- will need outpatient sleep study; continue CPAP here in hospital. <Rosa Maria Meza - Last Filed: 04/09/17 13:52>
[2017-04-09] MEDS: Furosemide 20 MG/2 ML VIAL SLOW IVP SCH (06:35)
[2017-04-09] MEDS: Levothyroxine Sodium 25 MCG TAB PO SCH (06:35)
[2017-04-09] MEDS: Mometasone/Formoterol 120 PUFF INHALER INH SCH ×2 (07:21→19:15)
[2017-04-09] MEDS: Pregabalin 50 MG CAP PO SCH ×2 (09:12→20:41)
[2017-04-09] MEDS: Enoxaparin Sodium 40 MG/0.4 ML SYRINGE SC SCH (09:13)
[2017-04-09] MEDS: predniSONE 20 MG TAB PO SCH (09:13)
[2017-04-09] MEDS: DULoxetine 30 MG CAP PO SCH (09:13)
[2017-04-09] MEDS ORDERED: Potassium Chloride 20 MEQ TAB PO SCH (16:00)
--- NOTE | 2017-04-09 16:07 | PRG ---
DATE OF SERVICE: 04/09/2017 SERVICE: Pulmonary Medicine. INTERVAL HISTORY: The patient is doing fine from a respiratory standpoint. She does not have any co nversational dyspnea, looks perfectly cool, calm, and collected. She is on less than 1/2 liter via n claudia cannula and her saturations are impeccable. Apparently, she had a little bit of desaturation as sociated with aggressive ambulation, but she was asymptomatic to it. PHYSICAL EXAMINATION: VITAL SIGNS: Afebrile, pulse 92, blood pressure 101/59, respirations 16, saturation 97% on 1/2 liter nasal cannula. GENERAL: Patient is awake, alert, in no apparent distress. LUNGS: Decent air entry. There are some wheezing present. Dependent crackles are evident. HEART: Normal rate, regular. ABDOMEN: Soft, nontender, nondistended. Bowel sounds positive. MUSCULOSKELETAL: No cyanosis or clubbing. There is trace pitting in the bilateral lower extremities . NEUROLOGIC: Grossly nonfocal. LABORATORY DATA: WBC 7.0, hemoglobin 12.8, platelets 147,000. Basic metabolic profile is completely unremarkable with a bicarbonate of 33. Potassium 3.7. ASSESSMENT: 1. Acute hypoxic and hypercapnic respiratory failure. 2. Chronic obstructive pulmonary disease with acute exacerbation (versus asthma). 3. Obstructive sleep apnea, suspected. 4. Volume overload, stable. PLAN: At this point, the patient has demonstrated stability for several days. From my perspective, she can be dismissed from the hospital. If she requires oxygen, hopefully this can be arranged. I w sukhi like to see her in my clinic in a chronic stable state. At that point, we will arrange for her to have an ABG to see whether or not she is a CO2 retainer at baseline, and send her for a polysomnog christine so that we can initiate noninvasive therapy in the outpatient setting. At this point, she has no further requirements for inpatient pulmonary or critical care opinion. As such, I will sign off. P merced call with additional questions or concerns.
[2017-04-09] MEDS: traZODone HCl 150 MG TAB PO SCH (20:40)
[2017-04-09] MEDS: Nicotine 21 MG PATCH TD SCH (21:59)
[2017-04-10] MEDS: Acetaminophen 325 MG TAB PO PRN (04:58)
[2017-04-10] MEDS: Levothyroxine Sodium 25 MCG TAB PO SCH (05:21)
[2017-04-10] MEDS: Furosemide 20 MG/2 ML VIAL SLOW IVP SCH (05:21)
--- NOTE | 2017-04-10 06:14 | PDOC.FM ---
- Subjective Subjective: Patient is a pleasant 51 yo female. She states she had a good night. She states she is able to get up and walk around however, is pretty short winded when she sits back down. She states she has no chest pain, n/v/d, fever, or chills. She is also requesting Nicotine patches as an outpatient. She was counseled heavily on smoking cessation and weight loss going foward. She will undergo a home O2 evaluation study this morning to determine if she will need oxygen as an outpatient. She has no other concerns this morning. - Objective Vital Signs & Weight: Vital Signs (12 hours) Temp Pulse Resp BP BP Pulse Ox 04/10/17 04:00 98.6 F 97 20 122/70 92 L 04/10/17 03:49 96 04/09/17 20:00 98.5 F 97 20 116/68 96 Weight Weight 114.215 kg I&O: 04/08/17 04/09/17 04/10/17 06:59 06:59 06:59 Intake Total 640 2019 1200 Output Total 3325 3150 1400 Balance -5448 -1333 -200 Result Diagrams: 04/09/17 04:40 04/09/17 04:40 <Terry Troy - Last Filed: 04/10/17 08:39> - Objective Vital Signs & Weight: Vital Signs (12 hours) Temp Pulse Resp BP BP Pulse Ox 04/10/17 09:22 98 16 04/10/17 09:17 92 L 04/10/17 09:14 98 16 04/10/17 08:25 98 F 90 20 101/58 L 92 L 04/10/17 04:00 98.6 F 97 20 122/70 92 L 04/10/17 03:49 96 Weight Weight 114.215 kg I&O: 04/09/17 04/10/17 04/11/17 06:59 06:59 06:59 Intake Total 2020 1720 Output Total 3150 3050 Balance -1001 -0600 Result Diagrams: 04/09/17 04:40 04/09/17 04:40 <Rosa Maria Meza - Last Filed: 04/10/17 11:38> Phys Exam - Physical Examination Constitutional: NAD HEENT: PERRLA Neck: no nodes Respiratory: no rales, wheezing present Cardiovascular: RRR, no significant murmur Gastrointestinal: soft, non-tender, no distention, positive bowel sounds Musculoskeletal: no edema, pulses present, edema present Neurological: non-focal, normal sensation, moves all 4 limbs Lymphatic: no nodes Psychiatric: normal affect, A&O x 3 Skin: no rash <Terry Troy - Last Filed: 04/10/17 08:39> Dx/Plan (1) Acute respiratory failure with hypoxia Code(s): J96.01 - ACUTE RESPIRATORY FAILURE WITH HYPOXIA Status: Acute (2) Anxiety Code(s): F41.9 - ANXIETY DISORDER, UNSPECIFIED Status: Chronic (3) COPD with acute exacerbation Code(s): J44.1 - CHRONIC OBSTRUCTIVE PULMONARY DISEASE W (ACUTE) EXACERBATION Status: Chronic (4) Hypothyroid Code(s): E03.9 - HYPOTHYROIDISM, UNSPECIFIED Status: Chronic (5) History of torsades de pointes Code(s): Z86.79 - PERSONAL HISTORY OF OTHER DISEASES OF THE CIRCULATORY SYSTEM Status: Resolved (6) Hyperkalemia Code(s): E87.5 - HYPERKALEMIA Status: Resolved - Plan Plan: . Acute hypoxic respiratory failure secondary to COPD exacerbation - Pt O2 sat in mid 90s on 1L. Continue to work to wean O2, pt has made improvement over past 24 hours - Pulm, Dr Cardona, has been consulted. - continue PO steroids and abx - Vitals improving. Typically normal HR and RR - Pt will need outpt follow up and treatment w/pulm - Will continue to monitor O2 requirements - Case Management consultation for Home O2 and Home O2 evaluation has been made if patient can't tolerate without oxygen 2. Anxiety - Increased dose of cymbalta today, will recommend her dosing be reevaluated by PCP upon discharge - Improved psychomotor symptoms from admission. 3. Hx of Torsades de points - per history had a short run in the ED, was given Mg and the rhythm resolved. Unable to find EKG of this rhythm, per history it was seen on monitor in ED. - monitor on tele 4. Hypothyroid - continue home synthroid 5. Hyperkalemia - Resolved. Monitor BMP Dispo: pt is stable and improving. Patient can be discharged home today with close outpatient follow up. <Terry Troy - Last Filed: 04/10/17 08:39> Attending Addendum - Attending Addendum I personally evaluated the patient and discussed the management with Dr. Troy I agree with the History, Examination, Assessment and Plan documented above with any addition or exceptions noted below- Patient without complaints. Denies any SOB. Tolerating diet. Afebrile VSS A/P: 1) COPD exacerbation- stable; arrangements for home O2 and plan to d/c home today with steroids and follow-up with pulmonary. 2) Hypothyroidism- continue levothyroxine <Rosa Maria Meza - Last Filed: 04/10/17 11:38>
[2017-04-10] MEDS: predniSONE 20 MG TAB PO SCH (09:15)
[2017-04-10] MEDS: DULoxetine 30 MG CAP PO SCH (09:15)
[2017-04-10] MEDS: Enoxaparin Sodium 40 MG/0.4 ML SYRINGE SC SCH (09:16)
[2017-04-10] MEDS: Pregabalin 50 MG CAP PO SCH (09:16)
[2017-04-10] MEDS: Mometasone/Formoterol 120 PUFF INHALER INH SCH (09:22)
[2017-04-10 13:28] VITALS: BP 117/75; TEMP 98.8
--- NOTE | 2017-04-10 19:17 | DIS-2 ---
DATE OF ADMISSION: 04/04/2017 DATE OF DISCHARGE: 04/10/2017 RESIDENT: Terry Troy MD ADMITTING ATTENDING: Gayathri John M.D. DISCHARGE ATTENDING: Rosa Maria Meza M.D. CONSULTATIONS: 1. Pulmonology, Dr. Cardona. 2. Case management for home oxygen. PROCEDURES: None. PRIMARY DIAGNOSES: 1. Acute respiratory failure with hypoxia. 2. Chronic obstructive pulmonary disease with acute exacerbation. 3. Anxiety. 4. Hypothyroidism. 5. History of torsades de pointes. 6. Hyperkalemia. DISCHARGE MEDICATIONS: 1. Cymbalta 20 mg. 2. Protonix 40 mg. 3. Vitamin D3 1000 units p.o. daily. 4. Symbicort 80/4.5 b.i.d. 5. Lyrica 100 mg. 6. Levothyroxine 25 mcg. 7. Trazodone 150 mg. 8. Nicotine transdermal patch 21 mg q.24 hours. 9. Prednisone 40 mg. DISCONTINUED MEDICATIONS: None. HISTORY OF PRESENT ILLNESS AND HOSPITAL COURSE: This is a 51-year-old female with past medical history of COPD, who presents with shortness of breath for the past 4-5 days. She is a transfer from the [facility]. She states that in addition, she has had some upper respiratory symptoms including cough, congestion, sore throat, sinus pain for greater than 1 week, but she has been afebrile. She does endorse getting a flu shot and pneumonia shot. She denies any sick contacts. She also endorses some dyspnea on exertion and cough that is nonproductive. She has audible wheezing upon entering the room. She also complained of a headache. She has a [id number] smoking history, endorses marijuana use in the past, and she does not require oxygen or CPAP at home. In the ER, she was given 650 mg of Tylenol, 2 grams of magnesium, 1 liter of normal saline, and DuoNeb. She also had a chest x-ray at the outside ER that showed evidence of emphysema with no acute findings. During this hospitalization, she had some notable lab values of a white blood cell count that ranged from 14.5 down to 7.0 on the day before discharge. She also had other lab values within normal limits. The patient was afebrile during the entire hospitalization, but did consistently require oxygen during the entire hospitalization. Dr. Cardona with Pulmonology was asked to see this patient in consultation and he recommends continuing nebulizer medication, antibiotics, and steroids. The steroids were reduced and will be continued as an outpatient to taper them down going forward. Dr. Cardona also feels that this patient would likely benefit from a polysomnogram because she does have evidence of obstructive sleep apnea and that will be done as an outpatient. Otherwise, the patient steadily made improvement, but was not able to keep her oxygen saturations above 90% without supplemental oxygen and at that time underwent a walking study for home O2 evaluation. Her resting room air temperature was 86% and so she was approved for home oxygen and will be sent out with that. The patient otherwise does not have any other complications and tolerated the hospitalization well and will be discharged in the appropriate condition. DISPOSITION: Stable. DISCHARGE INSTRUCTIONS: 1. Location: She will be discharged home into her own care. 2. Diet will be a heart healthy diet. 3. Activity will be as tolerated with no restrictions. 4. Follow up will be with her PCP, Dr. Pau Aragon in [address] Yaron Cardona in 14 days to coordinate her care. Also, she will likely need followup for her home oxygen use going forward as well with possibility of maybe being able to discontinue that in the future. We wish this patient the best of luck and hope she has no further complications from this disease. ALEX
== END 2017-04-10 14:52 | disposition home or self-care (01) | DRG 189 ==
LOC: ERS 16:51 → 2NO 17:48
PROVIDERS: ADMIT Student in an Organized Health Care Education/Training Program; ATTEND Student in an Organized Health Care Education/Training Program
DX: J96.01 Acute respiratory failure with hypoxia (principal); J44.1 Chronic obstructive pulmonary disease with (acute) exacerbation; Z68.41 Body mass index [BMI] 40.0-44.9, adult; E87.5 Hyperkalemia; E66.01 Morbid (severe) obesity due to excess calories; F41.9 Anxiety disorder, unspecified; E03.9 Hypothyroidism, unspecified; G47.33 Obstructive sleep apnea (adult) (pediatric); Z86.19 Personal history of other infectious and parasitic diseases; Z96.653 Presence of artificial knee joint, bilateral; J96.02 Acute respiratory failure with hypercapnia; E78.5 Hyperlipidemia, unspecified; L80 Vitiligo; E87.70 Fluid overload, unspecified; F17.210 Nicotine dependence, cigarettes, uncomplicated; F12.90 Cannabis use, unspecified, uncomplicated; K21.9 Gastro-esophageal reflux disease without esophagitis; Z86.79 Personal history of other diseases of the circulatory system
CPT/HCPCS: 36415; 80048; 80061; 82805; 84443; 85025; 93005; 93010; 94640; 94660; 96365; 96366; 99406; A4216; J1650; J1940; J1956; J2060; J2920; J3475; J7506; J7611; J7620

== ENCOUNTER 2017-05-10 12:43 | Outpatient (CLI) | payer OTHER ==
--- NOTE | 2017-05-10 13:25 | RAD ---
CHEST 2 VIEWS: HISTORY: Dyspnea. COMPARISON: 04/04/17. FINDINGS: Cardiac silhouette is unremarkable. Shallow inspiration accentuates pulmonary markings. Mediastinum is midline. There is no confluent airspace consolidation, pneumothorax, or pleural fluid evident. Postoperative changes of the thoracolumbar spine and right shoulder are apparent. IMPRESSION: No active cardiopulmonary abnormalities are demonstrated. POS: [facility]
== END 2017-05-10 12:44 | disposition home or self-care (01) ==
LOC: RAD 12:43
PROVIDERS: ATTEND Internal Medicine
DX: R06.00 Dyspnea, unspecified (principal)
CPT/HCPCS: 71046

== ENCOUNTER 2017-05-15 12:24 | Outpatient (CLI) | payer OTHER ==
[2017-05-15 14:24] LABS: Actual Bicarbonate (HCO3a) 27.3 mEq/L (22-26); Base Excess (BEa) 1.8 mEq/L (0 (+/-) 2.5); CO2 Tension 46.1 mmHg (35.0-45.0); O2 Tension (PaO2) 70.8 mmHg (80.0-100.0); pH, Arterial 7.39 (7.35-7.45)
[2017-05-15 14:25] LABS: Hematocrit-ABG 45.9 % (36.0-47.0); Hemoglobin (Hb) 14.6 g/dL (12.0-16.0)
[2017-05-15 14:28] LABS: Analyzer IN Cardio OR; Puncture Site LR
[2017-05-15 14:29] LABS: ALV-art Gradient -128.425 (0-20)
--- NOTE | 2017-05-24 08:46 | PFT ---
PATIENT HISTORY: HEIGHT: 63 IN WEIGHT: 240 SMOKER: YES HOW LON YRS PACKS PER DAY: 1 PRODUCTIVE COUGH: NO LUNG DISEASE: PHYSICIAN INTERPRETATION FINAL REPORT: FVC 2.33 (74%), FEV1 1.55 (65%), FEV1/FVC 0.66. TLC 9.08 (188%), FRC, 7.38 (278%), RV 6.87 (407%). Diffusion 14.21 (73%). The FEV1 and the FVC fall below the normal limits. The ratio is consistent with obstructive airflow limitation. There is a significant improvement in the FVC (19%, 370 mL) and FEV1 (20%) 260 mL following administration of bronchodilator. Lung volumes cannot be interpreted as the data is of poor quality, possibly representing an air leak. Diffusion capacity is minimally reduced and easily corrects for alveolar ventilation. IMPRESSION: Overall, these pulmonary function studies are consistent with moderate obstructive lung disease with significant reversibility, and minimally reduced gas exchange that corrects for alveolar ventilation. Lung volumes cannot be interpreted. Clinical and radiographic correlation should be considered. Multimedia Author: JUANIS Beverage Manager: JUANIS JOHNSON
--- NOTE | 2017-05-24 08:56 | PFT ---
PATIENT HISTORY: HEIGHT: 63 IN WEIGHT: 240 SMOKER: YES HOW LON YRS PACKS PER DAY: 1 PRODUCTIVE COUGH: YES LUNG DISEASE: PHYSICIAN INTERPRETATION FINAL REPORT:. ABG DATA pH 7.35, pCO2 46, pO2 71. IMPRESSION: The pCO2 is minimally elevated, consistent with early, chronic hypercapnic respiratory failure. She is well compensated with a normal pH. 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
== END 2017-05-15 12:25 | disposition home or self-care (01) ==
LOC: CP 12:24
PROVIDERS: ATTEND Internal Medicine
DX: J44.9 Chronic obstructive pulmonary disease, unspecified (principal); G47.33 Obstructive sleep apnea (adult) (pediatric)
CPT/HCPCS: 82805; 94060; 94727; 94729

== ENCOUNTER 2017-07-17 19:30 | Outpatient (CLI) | payer OTHER | END 2017-07-17 19:31 | disposition home or self-care (01) | LOC: SLEEPLAB 19:30 | PROVIDERS: ATTEND Internal Medicine | DX: G47.33 Obstructive sleep apnea (adult) (pediatric) (principal); J44.9 Chronic obstructive pulmonary disease, unspecified; E66.9 Obesity, unspecified; R35.1 Nocturia; R06.83 Snoring; I10 Essential (primary) hypertension | CPT/HCPCS: 95810 ==

== ENCOUNTER 2017-10-24 15:39 | Inpatient (IN) | payer OTHER ==
[2017-10-24] MEDS ORDERED: methylPREDNISolone Sod Succ/PF 125 MG/2 ML VIAL ONE (15:55)
[2017-10-24] MEDS ORDERED: Water For Inject, Bacteriostat 30 ML ONE (15:55)
[2017-10-24] MEDS ORDERED: Albuterol Sulfate 2.5 mg/3 ml Neb ONE (15:55)
[2017-10-24] MEDS ORDERED: Albuterol Sulfate 2.5 mg/0.5 ml Neb ONE (15:55)
[2017-10-24 16:03] LABS: Actual Bicarbonate (HCO3a) 29.1 mEq/L (22-28); Base Excess (BEa) 1.7 mEq/L (-2.0 to +3.0); Hematocrit-ABG 40.7 % (36.0-47.0); Hemoglobin (Hb) 13.3 g/dL (12.0-16.0); O2 Tension (PaO2) 142.9 mmHg (80.0-100.0); pH, Arterial 7.32 (7.35-7.45)
[2017-10-24 16:04] LABS: Analyzer IN Cardio ER; Calcium, Ionized 1.3 mmol/L (1.12-1.30); Puncture Site RRA
--- NOTE | 2017-10-24 16:30 | RAD ---
UPRIGHT PORTABLE CHEST ONE VIEW 10/24/17 HISTORY: 51-year-old female with history of respiratory distress, worsening over the last two to three days. S hortness of breath. Heart size is within normal limits. The lungs are clear. No pneumonia, edema, pleural effusion or oth er acute process. IMPRESSION: No acute intrathoracic disease. POS: [facility]
[2017-10-24 17:09] LABS: #Eosinphils 0.3 thou/uL (0.0-0.7); #Lymphocytes 1.2 thou/uL (1.20-3.40); #Monocytes 0.2 thou/uL (0.11-0.59); #Neutrophils 4.2 thou/uL (1.40-6.50); %Basophils 0.5 % (0.0-1.0); %Eosinophils 4.3 % (0.0-10.0); %Lymphocytes 20.7 % (21.0-51.0); %Monocytes 3.9 % (0.0-10.0); %Neutrophils 70.6 % (42.0-75.0); Hemoglobin 13.7 g/dL (12.0-16.0); Mean Corpuscular HGB CONC 32.6 g/dL (32.0-36.0); Mean Corpuscular Hemoglobin 32.1 pg (27.0-31.0); Mean Corpuscular Volume 98.4 fL (78.0-98.0); Mean Platelet Volume 7.8 fL (7.4-10.4); Platelet Count 142 thou/uL (130-400); RBC Distribution Width 12.3 % (11.5-14.5); Red Blood Cell (RBC) Count 4.28 mill/uL (4.20-5.40)
[2017-10-24 17:29] LABS: ALT (SGPT) 16 U/L (8-55); AST (SGOT) 17 U/L (5-34); Alkaline Phosphatase 104 U/L (40-150); Anion Gap 15 mmol/L (10-20); BUN (Urea Nitrogen) 10 mg/dL (9.8-20.1); Bilirubin, Total 0.3 mg/dL (0.2-1.2); Calc. Creatinine Clearance 0 mL/min (70-130); Calcium 9.1 mg/dL (7.8-10.44); Carbon Dioxide 25 mmol/L (22-29); Chloride 108 mmol/L (98-107); Estimated GFR-MDRD Greater than 90; Globulin 2.8 g/dL (2.4-3.5); Glucose 115 mg/dL (70-105); Potassium 4.1 mmol/L (3.5-5.1); Protein, Total 6.8 g/dL (6.0-8.3); Sodium 144 mmol/L (136-145)
[2017-10-24 17:32] LABS: CKMB 2.1 ng/mL (0-6.6); Troponin I 0.033 ng/mL (< 0.028)
[2017-10-24] MEDS ORDERED: Lorazepam 2 MG/ML VIAL ONE (17:38)
[2017-10-24] MEDS ORDERED: Magnesium Sulfate 2 GM in Sodium Chloride 0.9% 100 ML IVPB SCH (18:45)
[2017-10-24] MEDS ORDERED: Ondansetron ODT 4 MG TAB SL PRN (20:03)
[2017-10-24] MEDS ORDERED: Acetaminophen 325 MG TAB PO PRN (20:03)
[2017-10-24] MEDS ORDERED: HYDROcodone/Acetaminophen 5/325 mg Tablet PO PRN ×2 (20:03)
[2017-10-24] MEDS ORDERED: Ondansetron HCl/PF 4 MG/2 ML Vial IVP PRN ×2 (20:03→20:08)
[2017-10-24] MEDS ORDERED: Benzonatate 100 MG CAP PO PRN (20:08)
[2017-10-24] MEDS ORDERED: hydrALAZINE 20 MG/ML VIAL SLOW IVP PRN (20:08)
[2017-10-24] MEDS ORDERED: Ondansetron ODT 4 MG TAB PO PRN (20:08)
[2017-10-24] MEDS ORDERED: cloNIDine 0.1 MG TAB PO PRN (20:08)
[2017-10-24] MEDS ORDERED: Sodium Chloride 0.9% 1,000 ML IV SCH (20:15)
[2017-10-24] MEDS ORDERED: Mometasone/Formoterol 120 PUFF INHALER INH SCH (20:30)
[2017-10-24] MEDS: Sodium Chloride 0.9% 1,000 ML IV SCH (21:39)
[2017-10-24] MEDS ORDERED: methylPREDNISolone Sod Succ/PF 125 MG/2 ML VIAL IVP SCH (22:00)
[2017-10-24] MEDS: Famotidine 20 MG TAB PO SCH (22:17)
[2017-10-25] MEDS: Azithromycin 500 MG in Sodium Chloride 0.9% 250 ML 250 ML IVPB SCH (00:48)
[2017-10-25] MEDS ORDERED: cefTRIAXone\\ROCEPHIN 1 GM in Sodium Chloride 0.9% 100 ML IVPB SCH (01:00)
--- NOTE | 2017-10-25 01:22 | HP ---
DATE OF ADMISSION: 10/24/2017 PRIMARY CARE PROVIDER: Yany harden. CHIEF COMPLAINT: Shortness of breath. HISTORY OF PRESENT ILLNESS: This is a 51-year-old female who presents to [facility] Emergency Department complaining of approximately 2-3 days history of increasing shortness of yamileth th, nonproductive cough in the context of known chronic obstructive pulmonary disease on chronic oxyg en supplementation at 2 liters per minute by nasal cannula nocturnally. The patient states she has b een using her home nebulizer as well as chronic medication regimen and metered dose inhalers on a rou stephanie basis. The patient denied any specific fever, chills, exposure history or travel. The patient denies any hemoptysis. The patient states she recently was placed on a CPAP by her primary pulmonolo gist using it for approximately 8 weeks, then turning the machine back and after she thought that her prescription had ended for the machine. The patient denies any specific improvement with the CPAP. The patient was last evaluated in the emergency department for COPD exacerbation in 08/2017; however , was released home on outpatient prescription. In the emergency room, the patient underwent general evaluation receiving DuoNeb therapy as well as placement on BiPAP noninvasive mechanical ventilation . The patient was noted with audible wheezing and prolonged expiratory phase. The patient also rece ived magnesium sulfate, aspirin, lorazepam, and Solu-Medrol. The patient was referred to the [facility] for further evaluation. PAST MEDICAL HISTORY: 1. Chronic hypoxic respiratory failure on 2 liters per minute by nasal cannula. 2. Tobacco use. 3. Emphysema. 4. Hypothyroidism. 5. Obesity. 6. History of Staphylococcus infection of the spine. PAST SURGICAL HISTORY: 1. Status post right rotator cuff repair. 2. Status post section x2. 3. Status post spinal surgery. 4. Status post bilateral total knee arthroplasty. 5. Status post bilateral tubal ligation. 6. Status post nasal septal repair. CURRENT MEDICATIONS: 1. Levothyroxine 25 mcg p.o. daily. 2. Lyrica 100 mg p.o. b.i.d. 3. Protonix 40 mg p.o. daily. 4. Symbicort 80/4.5 two puffs inhaled b.i.d. 5. Vitamin D3 of 1000 units p.o. daily. 6. Cymbalta 20 mg p.o. daily. 7. DuoNeb q.6 hours p.r.n. ALLERGIES: KEFLEX and MORPHINE SULFATE. FAMILY HISTORY: Reviewed and negative. SOCIAL HISTORY: An [id number] history of smoking. Smokes 1-2 cigarettes currently. Occasional al cohol use. Prior history of marijuana use. Accompanied by her and son in the emergency depa rtment. REVIEW OF SYSTEMS: The following complete review of systems was negative, unless otherwise mentioned in the HPI or below: Constitutional: Weight loss or gain, ability to conduct usual activities. Ski n: Rash, itching. Eyes: Double vision, pain. ENT/Mouth: Nose bleeding, neck stiffness, pain, tend erness. Cardiovascular: Palpitations, dyspnea on exertion, orthopnea. Respiratory: Shortness of b reath, wheezing, cough, hemoptysis, fever or night sweats. Gastrointestinal: Poor appetite, abdomin al pain, heartburn, nausea, vomiting, constipation, or diarrhea. Genitourinary: Urgency, frequency, dysuria, nocturia. Musculoskeletal: Pain, swelling. Neurologic/Psychiatric: Anxiety, depression. Allergy/Immunologic: Skin rash, bleeding tendency. Otherwise negative except as stated per HPI. PHYSICAL EXAMINATION: VITAL SIGNS: Blood pressure 132/81, pulse 104, respiratory rate 20, temperature 98 degrees Fahrenhei t, O2 saturation 97% on BiPAP noninvasive mechanical ventilation. GENERAL APPEARANCE: The is a 51-year-old female on BiPAP noninvasive mechanical ventilatio n, alert, nodding, and responding to questions in 4-6 word sentences. HEENT: Pupils are equal, round, and reactive to light and accommodation. Extraocular muscles are in tact. No scleral icterus, no conjunctival injection. Nares patent. OP is clear. BiPAP facemask in place. NECK: Supple, no cervical adenopathy, no thyromegaly, no carotid bruits, no JVD appreciated. Cervic al spine with full active and passive range of motion. No meningeal signs appreciated. CHEST: Lungs with diminished breath sounds in the bases bilaterally. Prolonged expiratory phase wit h expiratory wheezing bilaterally. CARDIOVASCULAR: S1, S2 with distant heart sounds. No murmur, rub or gallop appreciated. ABDOMEN: Obese, soft, nontender, nondistended. Bowel sounds are positive in all four quadrants. Th ere is no hepatosplenomegaly, no abdominal bruits, no rebound or guarding appreciated. EXTREMITIES: Warm and dry with fair turgor. No clubbing, cyanosis or asymmetric edema appreciated. Pulses palpable distally at the dorsalis pedis, posterior tibial, and popliteal arteries bilaterally . Capillary refill less than 2 seconds. NEUROLOGIC: Cranial nerves II-XII are grossly intact. No focal or lateralizing signs appreciated. PERTINENT LABORATORY AND X-RAY FINDINGS: Sodium 144, potassium 4.1, chloride 108, CO2 of 25, BUN 10, creatinine 0.66, estimated GFR greater than 90, glucose 115, calcium 9.1. LFTs within normal limits . Troponin I 0.033, albumin 4.0. CBC showed a white blood cell count of 6.0, hemoglobin 14, hematoc rit 42, MCV 98, platelet count 142 with normal differential. ABG dated 10/24/2017 showed a pH of 7.3 2, pCO2 of 58, pO2 of 143, bicarbonate 29.1, O2 saturation 99% on 40% FiO2 by BiPAP noninvasive mecha nical ventilation. EKG dated 10/24/2017 by my interpretation shows sinus mechanism with heart rates in the 80s. Normal R-wave progression noted in the precordial leads. Normal axis. No acute ST-T wa ve changes appreciated. Portable chest x-ray dated 10/24/2017 showed no acute cardiopulmonary proces s. ASSESSMENT AND PLAN: 1. Acute on chronic hypoxemic respiratory failure. The patient will be admitted to the intermediate care unit. We will continue BiPAP noninvasive mechanical ventilation. See #2 below for full manage ment options. 2. Acute chronic obstructive pulmonary disease exacerbation. We will continue BiPAP noninvasive mec hanical ventilation weaning as clinically indicated. Solu-Medrol 40 mg IV q.6 hours. DuoNeb q.4 obey rs. Start Levaquin 750 mg IV q.24 hours. Add Symbicort 80/4.5 two puffs b.i.d. We will consult Pul monology Service in the a.m. 3. Hypothyroidism. Resume home regimen of levothyroxine 25 mcg daily. 4. Tobacco use. We will offer smoking cessation resources prior to discharge. 5. Anxiety disorder. We will confirm home antianxiety regimen with family members. 6. Prophylaxis. Sequential compression devices while in bed. Pepcid 20 mg IV q.12 hours. 7. Code status is FULL. Surrogate medical decision maker is patient's spouse.
[2017-10-25 01:30] VITALS: BMI 38.2
[2017-10-25] MEDS: Acetaminophen 500 MG TAB PO PRN ×2 (02:51→18:48)
[2017-10-25] MEDS: Lorazepam 2 MG/ML VIAL SLOW IVP PRN ×2 (02:51→08:58)
[2017-10-25 05:04] LABS: Anion Gap 15 mmol/L (10-20); BUN (Urea Nitrogen) 11 mg/dL (9.8-20.1); Calc. Creatinine Clearance 167 mL/min (70-130); Calcium 9.4 mg/dL (7.8-10.44); Carbon Dioxide 21 mmol/L (22-29); Chloride 108 mmol/L (98-107); Estimated GFR-MDRD Greater than 90; Glucose 143 mg/dL (70-105); Potassium 4.6 mmol/L (3.5-5.1); Sodium 139 mmol/L (136-145)
[2017-10-25 05:47] LABS: Band 16 % (5-11); Hemoglobin 14.3 g/dL (12.0-16.0); Lymphocytes 8 % (21-51); MDiff Complete? YES; Mean Corpuscular HGB CONC 32.9 g/dL (32.0-36.0); Mean Corpuscular Hemoglobin 32.6 pg (27.0-31.0); Mean Corpuscular Volume 99.2 fL (78.0-98.0); Neutrophil 76 % (42-75); Platelet Count 141 thou/uL (130-400); RBC Distribution Width 12.3 % (11.5-14.5); Red Blood Cell (RBC) Count 4.39 mill/uL (4.20-5.40)
[2017-10-25] MEDS ORDERED: Mometasone/Formoterol 120 PUFF INHALER INH SCH ×2 (06:30→18:30)
[2017-10-25] MEDS: Famotidine 20 MG TAB PO SCH ×2 (08:44→21:24)
--- NOTE | 2017-10-25 11:15 | CON ---
DATE OF CONSULTATION: 10/25/2017 HISTORY OF PRESENT ILLNESS: Ms. Silva is a 51-year-old morbidly obese female patient of Dr. Mackenzie johnson's presented with increasing shortness of breath and cough, unresponsive to her usual home medi cation. She had a PFT done some time ago which showed severe COPD. She is still smoking up to at least 2-3 c igarettes a day. She is coughing and wheezing. She denies any chest pain, chills or sweats. PAST MEDICAL HISTORY: COPD, tobacco abuse, asthma, morbid obesity, hyperthyroidism. PAST SURGICAL HISTORY: Multiple Staph infections of the spine, bilateral knee replacement, tubal lig ation, septum problems. MEDICATIONS FROM HOME: Trazodone 150, Lyrica 100, Protonix 40, Synthroid 25, Cymbalta 20, Symbicort. She says the Symbicort is not of much help. REVIEW OF SYSTEMS: Otherwise unremarkable. Ten point negative. PHYSICAL EXAMINATION: VITAL SIGNS: Sats are 98 on 2 liters, pulse 79, temperature 97, respiration rate 18. CHEST: Chest reveals decreased breath sounds, bilateral wheezing. CARDIAC: Normal S1-S2. No gallops. ABDOMEN: Soft. No masses. LABORATORY: White count 9000, H&H 14 and 43, platelet count normal. PO2 is 142, pCO2 57.32 on a BiP AP. Electrolytes are normal. X-ray showed no acute infiltrates. IMPRESSION: 1. Acute on chronic respiratory failure. 2. Ongoing tobacco abuse. 3. Morbid obesity. 4. Sleep apnea. 5. Severe deconditioning. PLAN; She is on adequate medication. At this stage, the best option is to reinforce no smoking. I will notify Dr. Cardona when he arrives. Aggressive PT, supportive care. This is a consultation note, 70 minutes, 50% spent with the patient.
[2017-10-25] MEDS: Sodium Chloride 0.9% 1,000 ML IV SCH (14:24)
[2017-10-25] MEDS: Mometasone/Formoterol 120 PUFF INHALER INH SCH (19:20)
--- NOTE | 2017-10-25 19:26 | PDOC.PN ---
- Subjective Encounter Start Date: 10/25/17 Encounter Start Time: 19:00 Subjective: f/u for acute/chronic hypoxic resp failure and COPD exacerbation. Off BiPAP -: on O2 via NC. Feels better overall. - Objective Resuscitation Status: Resuscitation Status FULL:Full Resuscitation MAR Reviewed: Yes Vital Signs & Weight: Vital Signs (12 hours) Temp Pulse Resp BP Pulse Ox 10/25/17 19:23 96 10/25/17 19:20 90 17 96 10/25/17 16:16 98.2 F 96/63 97 10/25/17 14:54 83 20 10/25/17 11:35 100 10/25/17 11:31 97 20 97 10/25/17 11:30 97.7 F 97 23 H 107/64 96 10/25/17 08:17 79 14 98 10/25/17 08:14 79 98 10/25/17 08:13 79 14 98 10/25/17 08:00 97.7 F 97 20 97 Weight Weight 216 lb 2 oz I&O: 10/24/17 10/25/17 10/26/17 06:59 06:59 06:59 Intake Total 1015 1200 Output Total 400 850 Balance 615 350 Result Diagrams: 10/25/17 03:48 10/25/17 03:48 Radiology Reviewed by me: Yes (PCXR - no acute infiltrates) EKG Reviewed by me: Yes (Tele - SR) Phys Exam - Physical Examination Constitutional: NAD alert, responsive, talks in 4-6 word sentences HEENT: PERRLA, sclera anicteric, oral pharynx no lesions Neck: no nodes, no JVD, supple, full ROM diminished bilat, prolonged exp phase with exp wheezes S1, S2 Cardiovascular: RRR, no significant murmur, no rub, gallop Gastrointestinal: soft, non-tender, no distention, positive bowel sounds Musculoskeletal: no edema, pulses present Neurological: non-focal, normal sensation, moves all 4 limbs Psychiatric: A&O x 3 Skin: no rash, normal turgor, cap refill <2 seconds Dx/Plan (1) Acute and chronic respiratory failure with hypoxia Code(s): J96.21 - ACUTE AND CHRONIC RESPIRATORY FAILURE WITH HYPOXIA Status: Acute Comment: Improved with pulmonary support, see #2 below (2) COPD with acute exacerbation Code(s): J44.1 - CHRONIC OBSTRUCTIVE PULMONARY DISEASE W (ACUTE) EXACERBATION Status: Acute Comment: Continue Solumedrol, Duonebs, Zithromax, Dulera, wean O2 as tolerated (3) Anxiety Code(s): F41.9 - ANXIETY DISORDER, UNSPECIFIED Status: Chronic Comment: Continue Cymbalta and Trazodone (4) Hypothyroid Code(s): E03.9 - HYPOTHYROIDISM, UNSPECIFIED Status: Chronic Comment: Continue Levothyroxine 25mcg daily (5) Tobacco abuse Code(s): Z72.0 - TOBACCO USE Status: Chronic Comment: Tobacco cessation resources - Plan continue antibiotics, social worker health services, respiratory therapy, out of bed/ambulate , DVT proph w/SCDs Stable overall -: Continue Zithromax -: Continue Duonebs, Dulera -: Tobacco Cessation Resources -: Likely convert to Prednisone in am * .
[2017-10-26] MEDS: Azithromycin 500 MG in Sodium Chloride 0.9% 250 ML 250 ML IVPB SCH (00:52)
[2017-10-26] MEDS ORDERED: Levothyroxine Sodium 25 MCG TAB PO SCH (06:00)
[2017-10-26] MEDS: Sodium Chloride 0.9% 1,000 ML IV SCH ×2 (06:48→14:09)
[2017-10-26] MEDS: Mometasone/Formoterol 120 PUFF INHALER INH SCH (07:21)
[2017-10-26] MEDS: Acetaminophen 500 MG TAB PO PRN (07:55)
[2017-10-26] MEDS: Famotidine 20 MG TAB PO SCH (07:55)
--- NOTE | 2017-10-26 09:03 | PRG ---
DATE OF SERVICE: 10/26/2017 She is still having difficulty breathing, though she is clearly better, less short of breath, less co ugh. OBJECTIVE: VITAL SIGNS: Blood pressure 140/58, sats 90% on room air, respiration 19, temperature 98. CHEST: Chest revealed decreased breath sounds, no wheezing. CARDIAC: Normal S1-S2. ABDOMEN: Soft, no masses. IMPRESSION: 1. Chronic obstructive pulmonary disease exacerbation. 2. Bronchitis. 3. Tobacco abuse. PLAN: Consider switching to oral prednisone, oral antibiotics. I see no evidence of any pneumonia. I will follow.
[2017-10-26 12:35] VITALS: BP 107/80; TEMP 98.8
--- NOTE | 2017-10-26 16:48 | DIS ---
DATE OF ADMISSION: 10/24/2017 DATE OF DISCHARGE: 10/26/2017 DISCHARGE DIAGNOSES: 1. Acute on chronic hypoxemic respiratory failure, resolving. 2. Acute chronic obstructive pulmonary disease exacerbation, improved. 3. Anxiety disorder. 4. Hypothyroidism. 5. Tobacco use. CONSULTATIONS: Dr. Cat with Pulmonology Service. PERTINENT LABORATORY AND X-RAY FINDINGS: Basic metabolic profile within normal limits. CBC within n ormal limits. Portable chest x-ray dated 10/24/2017 showed no acute cardiopulmonary process. HOSPITAL COURSE: The patient was placed in the Intermediate Care Unit after initially presenting wit h increased shortness of breath in the context of chronic obstructive pulmonary disease exacerbation requiring BiPAP noninvasive mechanical ventilation. The patient received IV Solu-Medrol, bronchodila tor therapy and general pulmonary supportive care. The patient clinically improved with pulmonary dee pportive measures, stabilizing in 48 hours. Telemetry monitoring showed sinus mechanism without evid ence of acute arrhythmia and overall, patient remained clinically stable. I have examined the patien t at the time of discharge and discussed followup instructions at which patient will verbalize unders tanding and agreement. The patient is overall clinically stable and ready for discharge on 8. DISCHARGE MEDICATIONS: 1. Augmentin 500/125 mg 1 tab p.o. b.i.d. x5 days. 2. Symbicort 80/4.5 one puff inhaled b.i.d. 3. Vitamin D3 2000 units p.o. daily. 4. Cymbalta 20 mg p.o. daily. 5. Levothyroxine 25 mcg p.o. daily. 6. Protonix 40 mg p.o. daily. 7. Prednisone 20 mg p.o. daily x 3 days, followed by half a tab p.o. daily x3 days. 8. Lyrica 100 mg p.o. b.i.d. 9. Trazodone 150 mg p.o. at bedtime. FOLLOWUP: The patient may follow up with local [facility] in [facility]. The patient will schedule appointment. CONDITION ON DISCHARGE: Stable. ACTIVITY: Ad josé antonio. DIET: Regular. CODE STATUS: FULL. DISPOSITION: Home, 10/26/2017.
== END 2017-10-26 14:30 | disposition home or self-care (01) | DRG 189 ==
LOC: ERS 15:39 → IMCU/EMU 19:48
PROVIDERS: ADMIT Family Medicine; ATTEND Family Medicine
DX: J96.21 Acute and chronic respiratory failure with hypoxia (principal); J44.1 Chronic obstructive pulmonary disease with (acute) exacerbation; Z99.81 Dependence on supplemental oxygen; E03.9 Hypothyroidism, unspecified; Z88.1 Allergy status to other antibiotic agents; Z88.5 Allergy status to narcotic agent; F17.210 Nicotine dependence, cigarettes, uncomplicated; F41.9 Anxiety disorder, unspecified; E66.01 Morbid (severe) obesity due to excess calories; Z68.38 Body mass index [BMI] 38.0-38.9, adult; Z96.653 Presence of artificial knee joint, bilateral; G47.30 Sleep apnea, unspecified
CPT/HCPCS: 36415; 71045; 80048; 80053; 82553; 82805; 84484; 85007; 85025; 85027; 93005; 94640; 94644; 94660; 94664; 96365; 96374; 96375; A4216; J0456; J1956; J2060; J2920; J2930; J3475; J7050; J7611; J7620

== ENCOUNTER 2017-12-04 20:45 | Inpatient (IN) | payer SELFPAY ==
[2017-12-04 21:13] LABS: Actual Bicarbonate (HCO3a) 25.5 mEq/L (22-28); Base Excess (BEa) 1.9 mEq/L (-2.0 to +3.0); CO2 Tension 54.3 mmHg (35.0-45.0); Carboxyhemoglobin (COHb) 0.4 gm% (0.0-3.0); Hemoglobin (Hb) 14.8 g/dL (12.0-16.0); O2 Tension (PaO2) 98.3 mmHg (80.0-100.0); pH, Arterial 7.29 (7.35-7.45)
[2017-12-04 21:14] LABS: ALV-art Gradient 256.225 (0-20); Analyzer IN Cardio ER; Calcium, Ionized 1.18 mmol/L (1.12-1.30); Potassium - ABG Lab 4.04 mmol/L (3.70-5.30); Puncture Site RRA
[2017-12-04] MEDS ORDERED: Lorazepam 2 MG/ML VIAL ONE (22:40)
[2017-12-04] MEDS ORDERED: Zolpidem Tartrate 5 MG TAB ONE (23:02)
--- NOTE | 2017-12-04 23:03 | PDOC.FPRHP ---
- History of Present Illness Chief Complaint: SOB History of Present Illness: This is a 52yo F with pmh of obesity, hypothyroid, COPD, and meth use presenting for COPD exacerbation. Pt states that yesterday morning she had onset of SOB and wheezing after smoking methamphetamine. Related symptoms of cough. symptoms worsened over the course of two days until presentation at the [place] ED. Pt reported she has been hospitalized in the past for COPD exacerbation and that it is exacerbated by her drug and cigarette use (4-5 cigarettes per day). Denies Fever/chills, no cp, no nausea/vomiting. Denies other drug use, denies EtOH. history and ros were limited due to pt agitated state ED Course: Pt given Levaquin and Mg x2 in [place] ED. At [facility] ED pt was on bipap and administered 1mg ativan and 5mg ambien. CXR- no cardiopulm processes. ABG pH 7.29, CO2 54.3 - Allergies/Adverse Reactions Allergies Allergy/AdvReac Type Severity Reaction Status Date / Time morphine Allergy Mild Hives Verified 10/25/17 01:31 cephalexin Allergy Verified 10/25/17 01:31 - Home Medications Medication Instructions Recorded Confirmed Type Budesonide-Formoterol [Symbicort 1 puff INH BID 04/04/17 12/05/17 History 80-4.5] Cholecalciferol (Vitamin D3) 2,000 unit PO DAILY 04/04/17 12/05/17 History [Vitamin D3] DULoxetine HCl [Cymbalta] 20 mg PO DAILY 04/04/17 12/05/17 History Levothyroxine Sodium [Levoxyl] 25 mcg PO DAILY 04/04/17 12/05/17 History Pantoprazole [Protonix] 40 mg PO DAILY 04/04/17 12/05/17 History Pregabalin [Lyrica] 100 mg PO BID 04/04/17 12/05/17 History traZODone HCl [Trazodone HCl] 150 mg PO HS 04/04/17 12/05/17 History Amoxicillin/Potassium Clav 1 tab PO Q12HR #10 tablet 10/26/17 12/05/17 Rx [Augmentin] predniSONE 20 mg PO QAM-WM #6 tab 10/26/17 12/05/17 Rx - History PMHx: COPD, hypothyroid, anxiety, obesity, spinal infection (2010) PSHx: c sections, spinal surgery, bilateral knee replacement, nasal- deviated septum, unspecified lung surgery FHx: none Social: Methamphetamine (smokes), Tobacco- 4-5 cigarettes/day, EtOH- denies - Review of Systems General: reports: other (ROS limited due to agitation). denies: fever/chills ENT: denies: nasal congestion Respiratory: reports: cough, shortness of breath Cardiovascular: denies: chest pain, palpitation Gastrointestinal: denies: nausea, vomiting, abdominal pain Psychological: reports: anxiety - Vital signs BP: [] HR: [] RR: [] Tmax: [] Pox: []% on [] Wt: [] - Physical Exam Constitutional: well developed, other (Pt moderately agitated, pulling at IV and taking off bipap/bp cuff. Pacing around room) HEENT: normocephalic and atraumatic, EOMI, conjunctiva clear, grossly normal hearing, MMM Neck: trachea midline Chest: no-tender to palpation, no lesions Heart: RRR, normal S1/S2 Lungs: other -Lungs: Pt appears to be in moderate respiratory distress, tripoding in chair while not on bipap (pt kept removing due to agitation). Bilateral diffuse inspiratory and expiratory wheezing and crackles, decreased breath sounds bilaterally. Abdomen: soft, non-tender, bowel sounds present Musculoskeletal: normal structure, normal tone Neurological: normal sensation Skin: no rash/lesions, good turgor Heme/Lymphatic: no purpura, no petechia Psychiatric: other (poor eye contact, anxious, pacing, pt not agressive but antagonistic to care by healthcare professionals) FMR H&P: Results - Labs Result Diagrams: 12/05/17 00:34 12/05/17 00:34 Lab results: ABG pH 7.29 (7.35-7.45) L 12/04/17 20:57 ABG pCO2 54.3 mmHg (35.0-45.0) H 12/04/17 20:57 ABG pO2 98.3 mmHg (80.0-100.0) 12/04/17 20:57 FMR H&P: A/P - Problem List (1) COPD with acute exacerbation Current Visit: No Status: Acute Code(s): J44.1 - CHRONIC OBSTRUCTIVE PULMONARY DISEASE W (ACUTE) EXACERBATION Comment: Continue Solumedrol, Duonebs , Zithromax, Dulera, wean O2 as tolerated (2) Anxiety Current Visit: No Status: Chronic Code(s): F41.9 - ANXIETY DISORDER, UNSPECIFIED Comment: Continue Cymbalta and Trazodone (3) Hypothyroid Current Visit: No Status: Chronic Code(s): E03.9 - HYPOTHYROIDISM, UNSPECIFIED Comment: Continue Levothyroxine 25mcg daily (4) Tobacco abuse Current Visit: No Status: Chronic Code(s): Z72.0 - TOBACCO USE Comment: Tobacco cessation resources - Plan Acute hypoxic respiratory distress 2/2 COPD exacerbation A- Pt in respiratory distress but satting well on Bipap. ABG pH 7.29, CO2 54.3. CXR shows no evidence of cardiopulm process. P- IMCU admission with bipap, wean as tolerated -Solumedrol q6hr -Duoneb q3hr -continue levaquin q24hr COPD -home meds -treatment as above. Obstructive sleep apnea - MIld STEVEN with nocturnal Hypoxemia per sleep study from 06/2017. Tobacco Abuse - Nicotine TD Anxiety/Agitation A- hx on anxiety with meth use. Pt agitation currently impeding medical care with bipap/iv/etc. P-home meds -Ativan 1mg q4hr prn -ambien 5mg prn for insomnia Hypothyroidism -home medications Methamphetamine Abuse -UDS, serum drug screen, HepC, RPR, HIV, TB Obesity -will counselor supervisor pt PPx- lovenox 40 disp: at least 2 nights fluids: LR 125ml/hr FMR H&P: Upper Level - Pertinent history Bev Silva is a 52 year old female with a history of COPD and tobacco/ drug abuse transferred from the [place] ED with one day history of dyspnea. She reports smoking meth yesterday and has been having breathing difficulty since then. She states that she had to use 10 breathing treatments today prior to calling EMS. When EMS arrived, pt was found to be tripodding and anxious. She was satting 80% on 2L. She received 1 DUO NEBand placed on CPAP by EMS and brought to [place] where whe was placed on BiPAP. She also received Solumedrol 125 mg, Levaquin 750 mg, Magnesium 2 g and one breathing treatment prior to transfer. In the ED here, BiPAP was continued, she also received 1 mg Ativan for restlessness/anxiety. She was recently hospitalized for Acute hypoxic respiratory failure in 10/2017 where she was placed on BiPAP and received routine treatment for COPD exacerbation. - Pertinent findings Vitals: BP:135/87 P: 88 R: 17 SpO2: 100% on BiPAP Physical Exam: General: Pt is very agitated and restless, refusing to sit down. Heart: Regular rate and rhythm Lungs: decreased air entry throughout. Diffuse wheezes, prolonged respirations. CXR: No acute cardiopulmonary abnormalities. pH: 7.29 pCO2: 54.3 PO2: 98.3 A-a: 256.225 Lactic Acid: 1.2 Trop < 0.01 - Plan Date/Time: 12/04/17 [id number] I, Bailey Quevedo, have evaluated this patient and agree with findings/plan as outlined by ad operations intern resident. Pertinent changes/additions are listed here. 1. Acute Hypoxic Respiratory Failure 2/2 COPD exacerbation - We will admit patient to IMCU on an inpatient basis. - Continue BiPAP. Wean as tolerated. - IV solumedrol. Levaquin. Scheduled and PRN duonebs. - smoking cessation and counseling on 2. COPD - will restart patient's home regimen. - treatment as above. 3. Obstructive sleep apnea - MIld STEVEN with nocturnal Hypoxemia per sleep study from 06/2017. 4. Drug Abuse - will obtain UDS/SDS - will also order HIV/RPR/TB testing 5. Tobacco Abuse - Nicotine TD 6. Hepatitis C - s/p treatment in [facility]. 7. Anxiety - Ativan prn - Consider long-acting regimen 8. Hypothyroidism - continue home regimen DVT: PPX: Lovenox Code status: Full Attending Addendum - Attending Addendum Date/Time: 12/04/17 [id number] I personally evaluated the patient and discussed the management with Dr. Powers and Dr. Quevedo I agree with the History, Examination, Assessment and Plan documented above with any addition or exceptions noted below. 52 yo female with multiple medical conditions admitted for severe COPD exacerbation. Currently on Bipap. Will admit to IMCU. Continue BiPAP overnight. Significant anxiety and aggitation due to drug use and likely withdrawal. Start benzo prn. Check UDS and alcohol level. Continue scheduled breathing treatments q 1 hour due to respiratory status. Wean as tolerated. Continue IV steroids. Continue antibx due to severity and likilihood of exposure of respiratory pathogens due to inhalant drug use. Possible fungal exposure as well. Patient continues to be noncompliant with tobacco and drug (meth/marijuana) use. Cessation discussed. Adjust home meds as needed. Leticia
[2017-12-05] MEDS ORDERED: Loperamide HCl 2 MG CAP PO PRN (00:07)
[2017-12-05] MEDS ORDERED: Bisacodyl 5 MG TAB PO PRN (00:07)
[2017-12-05 00:14] VITALS: BMI 37.0
[2017-12-05 00:48] LABS: #Lymphocytes 0.3 thou/uL (1.20-3.40); #Neutrophils 6.8 thou/uL (1.40-6.50); %Eosinophils 0.1 % (0.0-10.0); %Lymphocytes 4.8 % (21.0-51.0); %Monocytes 0.2 % (0.0-10.0); %Neutrophils 94.9 % (42.0-75.0); Hemoglobin 14.3 g/dL (12.0-16.0); Mean Corpuscular HGB CONC 32.3 g/dL (32.0-36.0); Mean Corpuscular Hemoglobin 32.1 pg (27.0-31.0); Mean Corpuscular Volume 99.6 fL (78.0-98.0); Mean Platelet Volume 7.5 fL (7.4-10.4); Platelet Count 170 thou/uL (130-400); RBC Distribution Width 12.4 % (11.5-14.5); Red Blood Cell (RBC) Count 4.46 mill/uL (4.20-5.40); White Blood Cell (WBC) Count 7.2 thou/uL (4.8-10.8)
[2017-12-05] MEDS: Lactated Ringer's 1,000 ML IV SCH ×2 (00:56→09:58)
[2017-12-05] MEDS: Nicotine 14 MG PATCH TD SCH (00:57)
[2017-12-05 01:05] LABS: Acetaminophen Less than 6.0 mcg/mL (10.0-30.0); Alcohol Less than 10 mg/dL (Less than 10); Salicylate Less than 8.0 mg/dL (15.0-30.0)
[2017-12-05 01:24] LABS: Syphilis Antibody Nonreactive (Nonreactive); Syphilis Antibody Index 0.04 S/CO (<1.00 Non-Reactive)
[2017-12-05 01:25] LABS: HIV (1/2) Antibody/Antigen Non-Reactive (NonReactive)
[2017-12-05 01:33] LABS: Anion Gap 15 mmol/L (10-20); BUN (Urea Nitrogen) 14 mg/dL (9.8-20.1); Calc. Creatinine Clearance 152 mL/min (70-130); Calcium 9.2 mg/dL (7.8-10.44); Carbon Dioxide 24 mmol/L (22-29); Chloride 110 mmol/L (98-107); Estimated GFR-MDRD Greater than 90; Glucose 152 mg/dL (70-105); Potassium 4.4 mmol/L (3.5-5.1); Sodium 145 mmol/L (136-145)
[2017-12-05 04:32] LABS: Hep C Index 9.28 S/CO (0-0.79)
[2017-12-05 04:33] LABS: Hep C IgG Ab Reflex HepC Qnt (NonReactive)
[2017-12-05] MEDS: Levothyroxine Sodium 25 MCG TAB PO SCH (05:03)
[2017-12-05] MEDS: Lorazepam 1 MG TAB PO PRN ×3 (05:03→22:24)
[2017-12-05 05:59] LABS: Amphetamine Detected (NotDetected); Barbiturates Screen Not Detected (NotDetected); Benzodiazepine Screen Detected (NotDetected); Cocaine Metabolite Screen Not Detected (NotDetected); Medtox Reader # READER 1; Methadone Not Detected (NotDetected); Methamphetamine Detected (NotDetected); Opiate Screen Detected (NotDetected); Oxycodone Screen Not Detected (NotDetected); Phencyclidine (PCP) Not Detected (NotDetected); THC/Cannabinoid Screen Detected (NotDetected); Tricyclic Screen Not Detected (NotDetected)
[2017-12-05 06:00] LABS: Medtox Control Line Valid? VALID (VALID)
--- NOTE | 2017-12-05 06:02 | PDOC.FM ---
- Subjective Subjective: Patient is resting comfortably this morning. Had a dose of Ativan around 0500 for agitation. She is now comfortable on BiPAP. She reports no concerns. TOYINO. - Objective MAR Reviewed: Yes Vital Signs & Weight: Vital Signs (12 hours) Temp Pulse Resp BP Pulse Ox 12/05/17 04:22 97.0 F L 87 20 127/74 99 12/05/17 04:17 80 12/05/17 04:16 80 15 100 12/05/17 00:19 86 12/05/17 00:17 89 16 100 12/04/17 23:51 97.4 F L 93 19 127/85 100 Weight Weight 94.8 kg I&O: 12/03/17 12/04/17 12/05/17 06:59 06:59 06:59 Intake Total 590 Output Total 200 Balance 390 Result Diagrams: 12/05/17 00:34 12/05/17 00:34 EKG Reviewed by me: Yes Radiology Reviewed by me: Yes <Precious Hamilton - Last Filed: 12/05/17 07:22> - Objective Vital Signs & Weight: Vital Signs (12 hours) Temp Pulse Resp BP Pulse Ox 12/05/17 10:17 99 12/05/17 10:16 92 20 97 12/05/17 08:27 97.3 F L 86 18 146/83 H 97 12/05/17 07:48 97.6 F 89 17 100 12/05/17 06:55 89 17 97 12/05/17 06:53 93 12/05/17 04:22 97.0 F L 87 20 127/74 99 12/05/17 04:17 80 12/05/17 04:16 80 15 100 12/05/17 00:19 86 12/05/17 00:17 89 16 100 12/04/17 23:51 97.4 F L 93 19 127/85 100 Weight Weight 94.8 kg I&O: 12/04/17 12/05/17 12/06/17 06:59 06:59 06:59 Intake Total 590 Output Total 200 Balance 390 Result Diagrams: 12/05/17 00:34 12/05/17 00:34 <Rosa Maria Meza - Last Filed: 12/05/17 11:05> Phys Exam - Physical Examination Constitutional: NAD resting on BiPAP HEENT: moist MMs expiratory wheezing at the bases, poor air movement Cardiovascular: RRR, no significant murmur Gastrointestinal: soft, non-tender Musculoskeletal: no edema Neurological: moves all 4 limbs <Precious Hamilton - Last Filed: 12/05/17 07:22> Dx/Plan (1) Acute respiratory failure with hypoxia and hypercapnia Code(s): J96.01 - ACUTE RESPIRATORY FAILURE WITH HYPOXIA; J96.02 - ACUTE RESPIRATORY FAILURE WITH HYPERCAPNIA Status: Acute (2) COPD with acute exacerbation Code(s): J44.1 - CHRONIC OBSTRUCTIVE PULMONARY DISEASE W (ACUTE) EXACERBATION Status: Acute (3) Methamphetamine abuse Code(s): F15.10 - OTHER STIMULANT ABUSE, UNCOMPLICATED Status: Acute (4) Hyperglycemia Code(s): R73.9 - HYPERGLYCEMIA, UNSPECIFIED Status: Acute (5) Anxiety Code(s): F41.9 - ANXIETY DISORDER, UNSPECIFIED Status: Chronic (6) Hypothyroid Code(s): E03.9 - HYPOTHYROIDISM, UNSPECIFIED Status: Chronic (7) Tobacco abuse Code(s): Z72.0 - TOBACCO USE Status: Chronic (8) Hx of hepatitis C Code(s): Z86.19 - PERSONAL HISTORY OF OTHER INFECTIOUS AND PARASITIC DISEASES Status: Acute - Plan Plan: Acute Hypoxic Hypercapnic Respiratory Failure 2/2 COPD Exacerbation - continue BIPAP, levaquin, solumedrol, and duonebs. At this time still has significant wheezing and poor air movement. - precipitated on by methamphetamine use, encourage cessation - continue Ativan prn for agitation while on bipap Methamphetamine Abuse - encourage cessation - UDS pending - SDS negative - CM consult for resources Hyperglycemia - fasting BG 152, A1c pending Hx of Hep C - Hep C Ab positive - Hep C RNA quant pending Tobacco Abuse - encourage cessation Hypothyroidism - continue home levothyroxine DVT PPx: lovenox Code Status: Full PCP: Dr. Aragon Dispo: d/c pending respiratory improvement. <Precious Hamilton - Last Filed: 12/05/17 07:22> Attending Addendum - Attending Addendum Date/Time: 12/05/17 1104 I personally evaluated the patient and discussed the management with Dr. Hamilton I agree with the History, Examination, Assessment and Plan documented above with any addition or exceptions noted below- Patient resting comfortably on BiPaP. States breathing improved. Afebrile VSS. A/P: 1) COPD exacerbation- wean BiPap as tolerated; continue steroids, nebs. 2) Polysubstance abuse- ebcourage cessation. <Rosa Maria Meza - Last Filed: 12/05/17 11:05>
[2017-12-05] MEDS ORDERED: Mometasone/Formoterol 120 PUFF INHALER INH SCH (06:30)
[2017-12-05 06:31] LABS: Hemoglobin A1c 5.1 % (4.0-6.0)
[2017-12-05] MEDS ORDERED: Non-Formulary Item 1 EACH (Budesonide-Formoterol [Symbicort 80-4.5] 1 PUFF) INH SCH (09:00)
[2017-12-05] MEDS: Pregabalin 50 MG CAP PO SCH ×2 (09:59→20:30)
[2017-12-05] MEDS: Enoxaparin Sodium 40 MG/0.4 ML SYRINGE SC SCH (10:00)
[2017-12-05] MEDS ORDERED: Acetaminophen 325 MG TAB PO SCH (10:45)
[2017-12-05] MEDS ORDERED: Albuterol Sulfate 2.5 mg/3 ml Neb NEB PRN (13:24)
[2017-12-05] MEDS ORDERED: Furosemide 20 MG/2 ML VIAL SLOW IVP SCH (13:30)
[2017-12-05] MEDS ORDERED: Ibuprofen 200 MG TAB PO PRN (16:43)
[2017-12-05] MEDS ORDERED: Zolpidem Tartrate 5 MG TAB PO PRN (18:00)
--- NOTE | 2017-12-05 18:23 | CON ---
DATE OF CONSULTATION: 12/05/2017 SERVICE: Pulmonary Medicine. REASON FOR CONSULTATION: COPD exacerbation. HISTORY OF PRESENT ILLNESS: The patient is a 52-year-old white female with past medical history significant for tobacco abuse and moderate COPD who presents to the hospital with a 3-day history of increasing shortness of breath and congestion. She had been coughing up some phlegm, but did not look at it. She is swallowing it down. She denies any current fevers, chills, nausea or vomiting. She recalls having an abrupt onset of symptoms. They were not there when she went to sleep and she woke up with them. She does not recall how long they happened or how long they were building for. She has not been around anybody that was sick recently. Otherwise, there has been no interval change to her condition. PAST MEDICAL HISTORY: 1. COPD, moderate. 2. Obstructive sleep apnea, mild. 3. Chronic hypoxic respiratory failure, particularly at night and with exertion. 4. Hypothyroidism. 5. Anxiety disorder. 6. Morbid obesity. 7. History of spinal infection. PAST SURGICAL HISTORY: 1. section. 2. Spinal surgery. 3. Knee replacement, bilateral. 4. Correction of deviated septum. 5. Lung surgery. FAMILY HISTORY: Noncontributory. SOCIAL HISTORY: The patient uses methamphetamine. She smokes a half a pack of cigarettes on a daily basis. She has no exposures to alcohol. She denies any exposure to chemicals, dust, asbestos or tuberculosis. ALLERGIES: MORPHINE, CEPHALEXIN. MEDICATIONS: List of her inpatient medications were reviewed and modified. REVIEW OF SYSTEMS: General, head, ears, eyes, nose, throat, cardiovascular, respiratory, GI, , musculoskeletal, neurologic and skin is negative except as mentioned in the HPI. PHYSICAL EXAMINATION: VITAL SIGNS: Afebrile, pulse 91, blood pressure 116/64, respirations 16, saturation 98% on 23% FiO2 delivered via BiPAP. HEENT: Normocephalic, atraumatic. Sclerae are white. Conjunctivae are pink. Oral mucosa is moist without lesions. LUNGS: Excellent air entry. There is no prolonged expiratory phase or wheezing appreciated. HEART: Normal rate, regular. ABDOMEN: Soft, nontender, nondistended. Bowel sounds are positive. MUSCULOSKELETAL: No cyanosis or clubbing. No pitting in the bilateral lower extremities. NEUROLOGIC: Grossly nonfocal. LABORATORY DATA: WBC 7.2, hemoglobin 14.3, platelets 170,000. PH 7.29, pCO2 is 54, pO2 of 98 on BiPAP with an FiO2 of 60% at that time. Basic metabolic profile is unremarkable. Urine drug screen is positive for amphetamines, methamphetamines, benzodiazepines, cannabinoids and opiates. Salicylates, acetaminophen and alcohol are all unremarkable. IMAGING: Chest x-ray demonstrates no evidence of acute cardiopulmonary abnormality. There is blunting of the left costophrenic angle and cephalization of bilateral lung cabrera, possibly consistent with some degree of volume overload. ASSESSMENT: 1. Acute on chronic hypoxic and hypercapnic respiratory failure. 2. Chronic obstructive pulmonary disease with acute exacerbation. 3. Volume overload, suspected. DISCUSSION AND PLAN: We will continue her nebulized medications, steroids and antibiotics. I added a dose of Lasix today and tomorrow morning. We will start BiPAP breaks. We will increase as tolerated. Echocardiogram will be obtained and I will add a BNP to this previous morning laboratories. Pulmonary Critical Care will continue to follow along while the patient remains in this location. 70 minutes have been devoted to this patient in various activities. I personally reviewed all imaging studies and laboratory data noted within this document. For fifty percent of this time, I was interacting with the patient at the bedside or coordinating care with the care team. For the remainder of the time I was immediately available to the patient in the hospital unit. ALEX
[2017-12-05] MEDS: traZODone HCl 150 MG TAB PO SCH (20:30)
[2017-12-06] MEDS: Nicotine 14 MG PATCH TD SCH (00:12)
[2017-12-06] MEDS: Levothyroxine Sodium 25 MCG TAB PO SCH (05:59)
[2017-12-06] MEDS ORDERED: Furosemide 20 MG/2 ML VIAL SLOW IVP SCH ×2 (06:00)
--- NOTE | 2017-12-06 06:27 | PDOC.FM ---
- Subjective Subjective: Patient is off the BIPAP since yesterday and had no problems overnight. She remains on 1L NC. She does endorse some SOB this morning. She is due for a duonebs at the time of evalution. She otherwise has no complaints. - Objective MAR Reviewed: Yes Vital Signs & Weight: Vital Signs (12 hours) Temp Pulse Resp BP Pulse Ox 12/06/17 03:55 97.7 F 92 20 114/64 95 12/06/17 01:03 93 16 105/63 90 L 12/06/17 00:17 90 18 95 12/06/17 00:06 92 18 100/61 97 12/05/17 23:58 98.0 F 93 24 H 94/53 L 98 12/05/17 20:30 102 H 20 104/61 95 12/05/17 20:00 98.5 F 116 H 34 H 95/59 L 94 L 12/05/17 18:41 104 H 20 98 Weight Weight 94.8 kg I&O: 12/04/17 12/05/17 12/06/17 06:59 06:59 06:59 Intake Total 590 1912 Output Total 200 3150 Balance 390 1238 Result Diagrams: 12/05/17 00:34 12/06/17 06:48 <Precious Hamilton - Last Filed: 12/06/17 10:11> - Objective Vital Signs & Weight: Vital Signs (12 hours) Temp Pulse Resp BP Pulse Ox 12/06/17 08:00 98 12/06/17 07:35 97.8 F 87 19 106/63 98 12/06/17 07:05 90 L 12/06/17 07:04 92 20 90 L 12/06/17 03:55 97.7 F 92 20 114/64 95 12/06/17 01:03 93 16 105/63 90 L 12/06/17 00:17 90 18 95 12/06/17 00:06 92 18 100/61 97 12/05/17 23:58 98.0 F 93 24 H 94/53 L 98 Weight Weight 94.8 kg I&O: 12/05/17 12/06/17 12/07/17 06:59 06:59 06:59 Intake Total 590 1912 Output Total 200 3150 Balance 390 1238 Result Diagrams: 12/05/17 00:34 12/06/17 06:48 <Rosa Maria Meza - Last Filed: 12/06/17 10:31> Phys Exam - Physical Examination Constitutional: NAD HEENT: moist MMs inspiratory and expiratory wheezing but still conversational Cardiovascular: RRR, no significant murmur Gastrointestinal: soft, non-tender, no distention, positive bowel sounds Musculoskeletal: no edema Neurological: moves all 4 limbs Psychiatric: normal affect, A&O x 3 <Precious Hamilton - Last Filed: 12/06/17 10:11> Dx/Plan (1) Acute respiratory failure with hypoxia and hypercapnia Code(s): J96.01 - ACUTE RESPIRATORY FAILURE WITH HYPOXIA; J96.02 - ACUTE RESPIRATORY FAILURE WITH HYPERCAPNIA Status: Acute (2) COPD with acute exacerbation Code(s): J44.1 - CHRONIC OBSTRUCTIVE PULMONARY DISEASE W (ACUTE) EXACERBATION Status: Acute (3) Methamphetamine abuse Code(s): F15.10 - OTHER STIMULANT ABUSE, UNCOMPLICATED Status: Acute (4) Hyperglycemia Code(s): R73.9 - HYPERGLYCEMIA, UNSPECIFIED Status: Acute (5) Anxiety Code(s): F41.9 - ANXIETY DISORDER, UNSPECIFIED Status: Chronic (6) Hypothyroid Code(s): E03.9 - HYPOTHYROIDISM, UNSPECIFIED Status: Chronic (7) Tobacco abuse Code(s): Z72.0 - TOBACCO USE Status: Chronic (8) Hx of hepatitis C Code(s): Z86.19 - PERSONAL HISTORY OF OTHER INFECTIOUS AND PARASITIC DISEASES Status: Acute - Plan Plan: Acute Hypoxic Hypercapnic Respiratory Failure 2/2 COPD Exacerbation - transitioned off BiPAP yesterday afternoon to [place], did well. Continue to wean off O2. - continue levaquin, solumedrol, and duonebs - seems to be precipitated by methamphetamine use, encourage cessation - Pulm following, appreciate recs. - will transfer to medical floor. Methamphetamine Abuse - encourage cessation - UDS pending - SDS negative - CM consult for resources Hyperglycemia - likely 2/2 steroids - A1c wnl Hx of Hep C - Hep C Ab positive - Hep C RNA quant pending STEVEN - use CPAP at night Tobacco Abuse - encourage cessation Hypothyroidism - continue home levothyroxine DVT PPx: lovenox Code Status: Full PCP: Dr. Aragon Dispo: d/c pending respiratory improvement. <Precious Hamilton - Last Filed: 12/06/17 10:11> Attending Addendum - Attending Addendum Date/Time: 12/06/17 1026 I personally evaluated the patient and discussed the management with Dr. Hamilton I agree with the History, Examination, Assessment and Plan documented above with any addition or exceptions noted below- Patient feeling much better. SOB improved. Afebrile VSS. A/P: 1) Acute hypoxic respiratory - resolved; off BiPaP. 2) COPD exacerbation - continue nebs, steroids. <Rosa Maria Meza - Last Filed: 12/06/17 10:31>
[2017-12-06 07:21] LABS: Anion Gap 11 mmol/L (10-20); BUN (Urea Nitrogen) 19 mg/dL (9.8-20.1); Calc. Creatinine Clearance 133 mL/min (70-130); Calcium 9.4 mg/dL (7.8-10.44); Carbon Dioxide 28 mmol/L (22-29); Chloride 105 mmol/L (98-107); Estimated GFR-MDRD 83; Glucose 115 mg/dL (70-105); Potassium 3.8 mmol/L (3.5-5.1); Sodium 140 mmol/L (136-145)
[2017-12-06] MEDS: predniSONE 20 MG TAB PO SCH (07:48)
[2017-12-06] MEDS: Pregabalin 50 MG CAP PO SCH ×2 (07:49→21:16)
[2017-12-06] MEDS: Lorazepam 1 MG TAB PO PRN ×3 (07:50→23:59)
[2017-12-06] MEDS: Enoxaparin Sodium 40 MG/0.4 ML SYRINGE SC SCH (07:50)
[2017-12-06] MEDS ORDERED: Potassium Chloride 20 MEQ TAB PO SCH (08:30)
--- NOTE | 2017-12-06 10:16 | PRG ---
DATE OF SERVICE: 12/06/2017 SERVICE: Pulmonary Medicine INTERVAL HISTORY: The patient is doing fine from a respiratory standpoint. She is breathing comfort ably. She did not use BiPAP overnight. There were no interval change to her condition. She continu es to have a little bit of increased work of breathing, but before I walked in, she was sleeping very comfortably. She denies any current chest pain, nausea or vomiting. There were no overnight events . PHYSICAL EXAMINATION: VITAL SIGNS: Afebrile, pulse 87, blood pressure 106/63, respirations 19, saturation 98% on 2 liters nasal cannula. GENERAL: The patient is awake, alert, in no apparent distress. LUNGS: Decent air entry. It is improved compared to yesterday. There is a prolonged expiratory pha se. Rhonchi have significantly improved, though there is still wheezing. I do not appreciate crackl es today. HEART: Normal rate, regular. ABDOMEN: Soft, nontender, nondistended. Bowel sounds are positive. MUSCULOSKELETAL: No cyanosis or clubbing. There is no pitting in the bilateral lower extremities. NEUROLOGIC: Grossly nonfocal. LABORATORY DATA: Basic metabolic profile is essentially unremarkable. Potassium is 3.8. Urine drug screen is positive for multiple things. ASSESSMENT: 1. Acute on chronic hypoxic and hypercapnic respiratory failure. 2. Chronic obstructive pulmonary disease with acute exacerbation. 3. Volume overload, mild. 4. Polysubstance drug abuse. DISCUSSION AND PLAN: The patient can be transitioned to the medical unit. We will continue steroids , nebulized medications and antibiotics. If all goes well, she can be considered for transition home tomorrow. I will give her a dose of potassium and we will give her a laboratory holiday in the [facility]. Echocardiogram is currently pending. I will certainly be interested in seeing the results of t hat to make certain there is no underlying cardiac issue.
[2017-12-06] MEDS: traZODone HCl 150 MG TAB PO SCH (21:16)
[2017-12-07] MEDS: Nicotine 14 MG PATCH TD SCH (00:14)
--- NOTE | 2017-12-07 06:14 | PDOC.FM ---
- Subjective Subjective: Patient is doing well this morning. She is off the NC this morning and able to hold conversation well. She reports normal appetite, no difficulty with voiding /stooling. Denies CP, SOB. Staff reports no acute events overnight. - Objective MAR Reviewed: Yes Vital Signs & Weight: Vital Signs (12 hours) Temp Pulse Resp BP Pulse Ox 12/07/17 00:27 95 12/07/17 00:25 98.3 F 94 18 117/70 95 12/06/17 20:00 92 L 12/06/17 19:58 98.0 F 109 H 18 98/57 L 92 L 12/06/17 19:05 77 18 95 Weight Weight 94.8 kg I&O: 12/05/17 12/06/17 12/07/17 06:59 06:59 06:59 Intake Total 590 1912 910 Output Total 200 3150 Balance 390 -1238 910 Result Diagrams: 12/05/17 00:34 12/06/17 06:48 <Precious Hamilton - Last Filed: 12/07/17 06:52> - Objective Vital Signs & Weight: Vital Signs (12 hours) Temp Pulse Resp BP Pulse Ox 12/07/17 07:35 97.5 F L 92 20 102/53 L 92 L 12/07/17 06:26 94 L 12/07/17 06:23 93 12 12/07/17 00:27 95 12/07/17 00:25 98.3 F 94 18 117/70 95 Weight Weight 94.8 kg I&O: 12/06/17 12/07/17 12/08/17 06:59 06:59 06:59 Intake Total 1912 1560 Output Total 3150 Balance -1238 1560 Result Diagrams: 12/05/17 00:34 12/06/17 06:48 <Rosa Maria Meza - Last Filed: 12/07/17 11:09> Phys Exam - Physical Examination Constitutional: NAD HEENT: moist MMs Respiratory: no rales, no rhonchi scattered wheezing with anterior auscultation, good air movement Cardiovascular: RRR, no significant murmur Gastrointestinal: soft, non-tender, no distention, positive bowel sounds Musculoskeletal: no edema, pulses present Neurological: non-focal, moves all 4 limbs Psychiatric: normal affect, A&O x 3 <Precious Hamilton Filed: 12/07/17 06:52> Dx/Plan (1) Acute respiratory failure with hypoxia and hypercapnia Code(s): J96.01 - ACUTE RESPIRATORY FAILURE WITH HYPOXIA; J96.02 - ACUTE RESPIRATORY FAILURE WITH HYPERCAPNIA Status: Acute (2) COPD with acute exacerbation Code(s): J44.1 - CHRONIC OBSTRUCTIVE PULMONARY DISEASE W (ACUTE) EXACERBATION Status: Acute (3) Methamphetamine abuse Code(s): F15.10 - OTHER STIMULANT ABUSE, UNCOMPLICATED Status: Acute (4) Hyperglycemia Code(s): R73.9 - HYPERGLYCEMIA, UNSPECIFIED Status: Acute (5) Anxiety Code(s): F41.9 - ANXIETY DISORDER, UNSPECIFIED Status: Chronic (6) Hypothyroid Code(s): E03.9 - HYPOTHYROIDISM, UNSPECIFIED Status: Chronic (7) Tobacco abuse Code(s): Z72.0 - TOBACCO USE Status: Chronic (8) Hx of hepatitis C Code(s): Z86.19 - PERSONAL HISTORY OF OTHER INFECTIOUS AND PARASITIC DISEASES Status: Acute - Plan Plan: Acute Hypoxic Hypercapnic Respiratory Failure 2/2 COPD Exacerbation - Weaned off supplemental O2 yesterday, did well overnight. - continue levaquin, prednisone, and duonebs. discontinue Abx and Prednisone () to complete 5 day course. - seems to be precipitated by methamphetamine use, encourage cessation - Pulm following, appreciate recs. - echo wnl Methamphetamine Abuse - encourage cessation - UDS positive for cocaine, methamphetamines, opiods, cannabis, and benzodiazepines - SDS negative - CM consult for resources Hyperglycemia - likely 2/2 steroids - A1c wnl Hx of Hep C - Hep C Ab positive - Hep C RNA quant pending STEVEN - does not use CPAP at home, nursing staff reports no desaturations overnight - continue following outpatient with Dr. Cardona Tobacco Abuse - encourage cessation Hypothyroidism - continue home levothyroxine DVT PPx: lovenox Code Status: Full PCP: Dr. Aragon Dispo: likely d/c home today <Precious Hamilton - Last Filed: 12/07/17 06:52> Attending Addendum - Attending Addendum Date/Time: 12/07/17 1106 I personally evaluated the patient and discussed the management with Dr. Cruz I agree with the History, Examination, Assessment and Plan documented above with any addition or exceptions noted below- Patient feeling better. Breathing near baseline. Afebrile VSS. A/P: 1) COPD exacerbation- stable; d/c home today with nebs, steroid, 1 more day of abx. 2) Anxiety- start SSRI <Rosa Maria Meza - Last Filed: 12/07/17 11:09>
[2017-12-07] MEDS: Levothyroxine Sodium 25 MCG TAB PO SCH (06:15)
[2017-12-07 08:22] VITALS: BP 102/53; TEMP 97.5
[2017-12-07] MEDS: Enoxaparin Sodium 40 MG/0.4 ML SYRINGE SC SCH (10:38)
[2017-12-07] MEDS: predniSONE 20 MG TAB PO SCH (10:38)
[2017-12-07] MEDS: Pregabalin 50 MG CAP PO SCH (10:39)
[2017-12-07] MEDS: Lorazepam 1 MG TAB PO PRN (10:44)
--- NOTE | 2017-12-07 13:59 | DIS-2 ---
DATE OF ADMISSION: 12/04/2017 DATE OF DISCHARGE: 12/07/2017 RESIDENT: Precious Hamilton D.O. ADMITTING ATTENDING: Gayathri John M.D. DISCHARGE ATTENDING: Rosa Maria Meza M.D. CONSULTATIONS: Pulmonary, Dr. Yaron Cardona. IMAGING/PROCEDURES: Echocardiogram performed on 12/06/2017 shows normal EF 60%- 65%, normal diastolic function with mild mitral and tricuspid regurgitation. PRIMARY DIAGNOSES: 1. Chronic obstructive pulmonary disease exacerbation. 2. Methamphetamine abuse. 3. Tobacco abuse. 4. History of hepatitis C, treated. 5. Obstructive sleep apnea. 6. Hypothyroidism. DISCHARGE MEDICATIONS: 1. Lyrica 100 mg p.o. b.i.d. 2. Protonix 40 mg p.o. daily. 3. Levothyroxine 25 mcg p.o. daily. 4. Cymbalta 20 mg p.o. daily. 5. Trazodone 150 mg p.o. at bedtime. 6. Vitamin D3 2000 units p.o. daily. 7. Symbicort 1 puff inhalation b.i.d. 8. Prednisone 20 mg p.o. to complete a 5-day course. 9. Cipro 500 mg p.o. b.i.d. to complete a 5-day course. 10. Albuterol sulfate nebulized treatments q.6 hours p.r.n. shortness of breath. DISCONTINUED MEDICATIONS: None. HISTORY OF PRESENT ILLNESS AND HOSPITAL COURSE: The patient is a 52-year-old female, who presented to the ED for shortness of breath. She reports with a 2- day history and happened after initial methamphetamine abuse. She has prior admissions for this reason. She sees Dr. Cardona of Pulmonology. She is a chronic smoker using about 4-5 cigarettes per day. Denies any other symptoms. The patient initially presented hypoxic and was placed on BiPAP in the ED, admitted to the [facility] for BiPAP overnight. She had a blood gas, which confirmed her acidotic state with a pH of 7.29. All other labs were stable. She was treated with steroids and Levaquin as well as scheduled duonebs. She quickly recovered from respiratory distress with use of BiPAP. It was weaned off the next day and transitioned to nasal cannula, which was weaned off the day after. Today, she is satting well on room air. No respiratory distress, and has no other complaints. All other medical conditions were treated with home medications and hepatitis C was evaluated with a hepatitis C antibody, which was positive, and a hepatitis C RNA is pending at this time. It was discussed with her to discontinue use of methamphetamine and other drugs as evidenced by her UDS which was positive for opiods, benzodiazepines, cannabis, amphetamines, and methamphetamines. DISPOSITION: Stable. DISCHARGE INSTRUCTIONS: 1. Location: Home. 2. Diet: Heart healthy. 3. Activity: As tolerated. 4. Followup: With primary care physician. At this time, she does not have one , has been given resources for [facility]. Follow up in 1-2 weeks with a new PCP and 2-[address] Cardona, pss delivery professional. ALEX
--- NOTE | 2017-12-07 15:39 | PRG ---
DATE OF SERVICE: 12/07/2017 SERVICE: Pulmonary Medicine. INTERVAL HISTORY: The patient is doing fine from a respiratory standpoint. She has essentially returned to baseline. She has no complaints of chest pain, nausea, vomiting, fevers or chills. Otherwise, there has been no interval change to her condition. PHYSICAL EXAMINATION: VITAL SIGNS: Afebrile, pulse 92, blood pressure 102/53, respirations 20, saturation 92% on room air. GENERAL: The patient is awake, alert, no apparent distress. LUNGS: Decent air entry. There is no prolonged expiratory phase or wheezing identified. There is a prolonged expiratory phase with wheezing. The rhonchi have significantly improved. I do not appreciate any crackles today. HEART: Normal rate, regular. ABDOMEN: Soft, nontender, nondistended. Bowel sounds are positive. MUSCULOSKELETAL: No cyanosis or clubbing. There is no pitting in the bilateral lower extremities. NEUROLOGIC: Grossly nonfocal. IMAGING DATA: Echocardiogram demonstrates a normal ejection fraction and normal diastolic function. There is a mild valvular abnormalities present. ASSESSMENT: 1. Acute hypoxic and hypercapnic respiratory failure. 2. Chronic obstructive pulmonary disease with acute exacerbation. 3. Volume overload, resolved. 4. Polysubstance drug abuse. DISCUSSION AND PLAN: From my perspective, the patient has returned to her baseline breathing status. She can be transitioned home today. She will need 5 days of steroids in total and 7 days of antibiotics. If she remains in house , Pulmonary will continue to follow, but my suspicion is that she will be going home today. ALEX
[2017-12-08 12:14] LABS: Hep C PCR-Quant HCV Not Detected IU/mL (.)
== END 2017-12-07 15:55 | disposition home or self-care (01) | DRG 189 ==
LOC: ERS 20:45 → IMCU/EMU 22:13 → ONC 12-06 14:09
PROVIDERS: ADMIT Student in an Organized Health Care Education/Training Program; ATTEND Student in an Organized Health Care Education/Training Program
PROC: 5A09357 Assistance with Respiratory Ventilation, Less than 24 Consecutive Hours, Continuous Positive Airway Pressure (ICD-10-PCS; principal; 2017-12-04)
DX: J96.21 Acute and chronic respiratory failure with hypoxia (principal); J44.1 Chronic obstructive pulmonary disease with (acute) exacerbation; J96.22 Acute and chronic respiratory failure with hypercapnia; E66.9 Obesity, unspecified; E03.9 Hypothyroidism, unspecified; G47.33 Obstructive sleep apnea (adult) (pediatric); F41.9 Anxiety disorder, unspecified; R73.9 Hyperglycemia, unspecified; F17.210 Nicotine dependence, cigarettes, uncomplicated; Z86.19 Personal history of other infectious and parasitic diseases; Z68.37 Body mass index [BMI] 37.0-37.9, adult; Z88.1 Allergy status to other antibiotic agents; Z88.5 Allergy status to narcotic agent; Z79.52 Long term (current) use of systemic steroids
CPT/HCPCS: 36415; 80048; 80306; 80307; 82805; 83036; 83880; 85025; 86480; 86780; 86803; 87389; 87522; 93005; 93306; 94640; 94660; 94760; 96372; A4216; J1650; J1940; J1956; J2060; J2920; J7506; J7620

== ENCOUNTER 2018-03-17 06:21 | Inpatient (IN) | payer MEDICAID, OTHER ==
--- NOTE | 2018-03-17 07:36 | PDOC.FPRHP ---
- History of Present Illness Chief Complaint: SOB History of Present Illness: This is a 52 yo female pmh of COPD, hypothyroidism, spine infection in 2007 who presents to the ed with a cc of SOB. She states her symptoms started gradually over the last week. She reports her son had a viral URI and she believes she caught it. She reports a sore throat, increased work of breathing, wheezing, cough, and increased sputum production. She denies fever, chest pain, nausea, or vomiting. She is on 2L O2 at home. In 2007, she had an unknown lung surgery for her spine infection. ED Course: Brethine Albuterol ventolin x2 duoneb x2 methylprednisolone - Allergies/Adverse Reactions Allergies Allergy/AdvReac Type Severity Reaction Status Date / Time morphine Allergy Mild Hives Verified 10/25/17 01:31 cephalexin Allergy Verified 10/25/17 01:31 - Home Medications Medication Instructions Recorded Confirmed Type Budesonide-Formoterol [Symbicort 1 puff INH BID 04/04/17 03/17/18 History 80-4.5] Cholecalciferol (Vitamin D3) 2,000 unit PO DAILY 04/04/17 03/17/18 History [Vitamin D3] Levothyroxine Sodium [Levoxyl] 25 mcg PO DAILY 04/04/17 03/17/18 History Pregabalin [Lyrica] 100 mg PO BID 04/04/17 03/17/18 History traZODone HCl [Trazodone HCl] 150 mg PO HS 04/04/17 03/17/18 History Lorazepam [Ativan] 1 mg PO BID PRN #10 tab 12/07/17 03/17/18 Rx Albuterol Sulfate [Proair HFA] 2 puff INH Q6HR PRN 03/17/18 03/17/18 History Cetirizine HCl 5 mg PO DAILY 03/17/18 03/17/18 History DULoxetine HCl [Cymbalta] 1 capsule PO DAILY 03/17/18 03/17/18 History Montelukast Sodium 10 mg PO HS 03/17/18 03/17/18 History lamoTRIgine [LaMICtal] 2 tab PO DAILY 03/17/18 03/17/18 History - History PMHx: COPD, 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 denies: fever/chills Eyes: denies: eye pain, vision changes ENT: denies: nasal congestion, rhinorrhea Respiratory: reports: cough, congestion, shortness of breath, exercise intolerance Cardiovascular: denies: chest pain, palpitation, edema Gastrointestinal: denies: nausea, vomiting, diarrhea, GI bleeding Genitourinary: denies: incontinence, dysuria Skin: denies: rashes, lesions Musculoskeletal: reports: pain (chronic lower back pain) Neurological: denies: numbness, syncope Psychological: denies: anxiety, depression - Vital signs BP: 119/99 HR: 99 RR: 17 Tmax: 98.2 Pox: 94% on 3 L nc Wt: 90kg - Physical Exam Constitutional: awake, alert and oriented, other (mild respiratory distress) HEENT: normocephalic and atraumatic, other (dry mucus membranes) Neck: trachea midline, no JVD Chest: no-tender to palpation Heart: RRR, normal S1/S2, no murmurs/rubs/gallops Lungs: other (Diffuse wheezing, mild respiratory distress vs anxiety) Abdomen: soft, non-tender, bowel sounds present, no masses/distention Musculoskeletal: normal structure, ROM grossly normal Neurological: CN II-XII intact Heme/Lymphatic: no unusual bruising or bleeding Psychiatric: other (Pressured speech) FMR H&P: Results - Labs Lab results: cbc wbc 5.9 hgb 14.1 hct 44.9 MCV 98.8 Plt 200 CMP na 145 k3.6 cl 109 bicarb 23 bun 12 cr .065 UA negative UDS marijuana D dimer negative - Radiology Interpretation Chest x-ray Status: image reviewed by me (No infiltrates, effusions, or pneumothorax) FMR H&P: A/P - Problem List (1) Acute respiratory failure with hypoxia Current Visit: No Status: Acute Code(s): J96.01 - ACUTE RESPIRATORY FAILURE WITH HYPOXIA (2) COPD with acute exacerbation Current Visit: No Status: Acute Code(s): J44.1 - CHRONIC OBSTRUCTIVE PULMONARY DISEASE W (ACUTE) EXACERBATION Comment: Continue Solumedrol, Duonebs , Zithromax, Dulera, wean O2 as tolerated (3) Hypothyroid Current Visit: No Status: Chronic Code(s): E03.9 - HYPOTHYROIDISM, UNSPECIFIED Comment: Continue Levothyroxine 25mcg daily (4) Tobacco abuse Current Visit: No Status: Chronic Code(s): Z72.0 - TOBACCO USE Comment: Tobacco cessation resources - Plan This is a 52 yo female pmh of COPD, hypothyroidism, spine infection in 2007 Acute hypoxic respiratory failure 2/2 copd exacerbation -Admit to medical -O2 support with scheduled and PRN duonebs -oral steroids and doxycycline -Pending ABG -Flu negative, d-dimer negative, cxr shows no acute process Hypothyroidism -continue home meds Chronic back pain -Continue cymbalta Tobacco abuse -Nicotine patch -Encourage cessation Code: full Prophylaxis: lovenox Family: none at bedside Disposition: home in 2-3 days FMR H&P: Upper Level - Pertinent history 52F with known history of COPD presents for SOB, transfer from [place]. She had SOB, worsening for last 2-3 days. Possible exacerbation by sick contact with URI. She endorse using her home O2, 2L, and COPD medication but with no relief. Associated with increased cough and sputum production. Occurs both at rest and with exertion. In ER, she has ventolin x2, ipratropium, methylprednisolone, ipratropium. - Pertinent findings Gen: Pressured speech, alert, grossly oriented, unkempt HEENT: Normocephalic, no obvious sign of lice. Moist mucosal membrane, midline trachea CV: RRR with no apparent m/g/r Resp: Wheezing throughout all lung field. Non labored breathing. Tachypneic GI: Soft, normoactive, no guarding, rigidity Ext: Trace edema in chinchilla Neuro: Fixated on ativan and getting "relaxed" - Plan Date/Time: 03/17/18 0736 I, [Brian Stark], have evaluated this patient and agree with findings/plan as outlined by manager internal resident. Pertinent changes/additions are listed here. 1. Acute on chronic, likely hypoxic respiratory failure, secondary to COPD exacerbation - Will obtain ABG. - At this time, start abx, steroid, O2 titrated to 88-92%, nebulizer treatment, tobacco cessation - Lab so far makes ACS, CHF, PE and infectious process less likely. 2. SIRS - Initial vitals at [place] supports SIRS, but no source of infection noted - Abnormal vitals better explained by COPD exacerbation 3. Cannabinoid abuse - Advise cessation - Due to drug abuse, will check for common sti 4. Anxiety/Depression - Takes cymbalta. Unknown dose. Will need to reconcile with her pharmacy 5. Hypothyrodism - Takes levothyroxine, unknown dosage. Will need to reconcile with her pharmacy. Addendum - Attending - Attending Attestation Date/Time: 03/17/18 9070 I personally evaluated the patient and discussed the management with Dr. Ortiz I agree with the History, Examination, Assessment and Plan documented above with any addition or exceptions noted below- 52 yo female with h/o COPD, hypothyroidism, spine infection in 2007 presents c/o SOB for the last 2-3 days. (+) ill contacts. (+) cough- non productive. Subj fever/chills. PMH/PSH/Meds/ All reviewed and agree with resident's documentation. Afebrile VSS. Exam repeated by me and agree with resident's findings. Labs: wbc 5.9, hgb 14.1, hct 44.9, MCV 98.8, Plt 200, na 145, k3.6, cl 109, bicarb 23, bun 12, cr 0.65, UA negative, UDS marijuana, D dimer negative, CXR- no infiltrates A/P: 1) COPD exacerbation- admit it medical; continue nebs, steroids, abx. 2) Anxiety- prm lorazepam. 3) Hypothyroidism- continue home meds. Check TSH
[2018-03-17] MEDS ORDERED: Ondansetron ODT 4 MG TAB PO PRN (10:07)
[2018-03-17] MEDS ORDERED: predniSONE 20 MG TAB PO SCH ×2 (10:07→10:30)
[2018-03-17] MEDS ORDERED: Enoxaparin Sodium 40 MG/0.4 ML SYRINGE SC SCH ×2 (10:07→10:30)
[2018-03-17] MEDS ORDERED: Doxycycline 100 MG CAP PO SCH ×2 (10:07→10:30)
[2018-03-17 10:09] VITALS: BMI 36.6
[2018-03-17] MEDS ORDERED: Lorazepam 2 MG/ML VIAL SLOW IVP PRN (11:07)
[2018-03-17] MEDS: Nicotine 14 MG PATCH TD SCH (11:28)
[2018-03-17] MEDS: Acetaminophen 325 MG TAB PO PRN ×2 (11:28→21:04)
[2018-03-17] MEDS: Sodium Chloride 0.9% 1,000 ML IV SCH ×3 (11:29→20:00)
[2018-03-17 11:32] LABS: Syphilis Antibody Nonreactive (Nonreactive); Syphilis Antibody Index 0.03 S/CO (<1.00 Non-Reactive)
[2018-03-17 11:33] LABS: HBSAB Concentration 1.95 mIU/mL; HBSAg Index 0.24 S/CO (0-0.99); HIV (1/2) Antibody/Antigen Non-Reactive (NonReactive); Hep B Surf AB Non-Reactive (NonReactive); Hep B Surf Ag Non-Reactive S/CO (NonReactive); Thyroid Stimulating Hormone 0.7277 uIU/mL (0.35-4.94)
[2018-03-17] MEDS: Lorazepam 2 MG/ML VIAL SLOW IVP PRN (11:34)
[2018-03-17 12:13] LABS: Hep C IgG Ab Reflex HepC Qnt (NonReactive); Hep C Index 10.05 S/CO (0-0.79)
[2018-03-17] MEDS ORDERED: Benzonatate 100 MG CAP PO PRN (12:31)
[2018-03-17 14:20] LABS: Actual Bicarbonate (HCO3a) 26.9 mEq/L (22-28); Base Excess (BEa) 1.1 mEq/L (-2.0 to +3.0); CO2 Tension 46.9 mmHg (35.0-45.0); Calcium, Ionized 1.21 mmol/L (1.12-1.30); Carboxyhemoglobin (COHb) 1.3 gm% (0.0-3.0); Hemoglobin (Hb) 14.4 g/dL (12.0-16.0); O2 Tension (PaO2) 64.1 mmHg (80.0-100.0); Potassium - ABG Lab 4.13 mmol/L (3.70-5.30); pH, Arterial 7.38 (7.35-7.45)
[2018-03-17 14:22] LABS: ALV-art Gradient 105.435 (0-20); Puncture Site L.R.
[2018-03-17] MEDS ORDERED: diphenhydrAMINE 50 MG/ML VIAL IVP SCH (15:45)
[2018-03-17] MEDS ORDERED: Metoclopramide HCl 10 MG/2 ML VIAL IVP SCH (15:45)
[2018-03-17] MEDS: guaiFENesin/DM ER PO SCH (21:02)
[2018-03-17] MEDS: Pregabalin 50 MG CAP PO SCH (21:03)
[2018-03-17] MEDS: Doxycycline 100 MG CAP PO SCH (21:03)
[2018-03-17] MEDS: traZODone HCl 150 MG TAB PO SCH (21:03)
[2018-03-18] MEDS: Sodium Chloride 0.9% 1,000 ML IV SCH ×4 (03:15→20:17)
[2018-03-18] MEDS: Lorazepam 2 MG/ML VIAL SLOW IVP PRN ×2 (05:55→20:25)
[2018-03-18] MEDS ORDERED: Permethrin 5% Cream 60 GM TUBE TOP SCH (06:00)
[2018-03-18] MEDS: Acetaminophen 325 MG TAB PO PRN (06:03)
[2018-03-18] MEDS: Levothyroxine Sodium 25 MCG TAB PO SCH (06:04)
--- NOTE | 2018-03-18 06:07 | PDOC.FM ---
- Subjective Subjective: Was resting comfortably in bed upon entering the room but could appreciate wheezing without the use of a stethoscope before waking the patient. Patient states she feels like her breathing is about the same as yesterday. Endorses having problems with anxiety. Is still coughing but is not coughing anything up just yet. - Objective MAR Reviewed: Yes Vital Signs & Weight: Vital Signs (12 hours) Temp Pulse Resp BP Pulse Ox 03/18/18 05:43 115 H 36 H 90 L 03/18/18 02:26 110 H 32 H 95 03/18/18 02:21 95 03/18/18 00:00 98.4 F 95 18 99/58 L 98 03/17/18 22:25 104 H 28 H 03/17/18 20:00 98.3 F 114 H 24 H 108/59 L 95 03/17/18 19:27 107 H 32 H 94 L Weight Weight 90.7 kg I&O: 03/16/18 03/17/18 03/18/18 06:59 06:59 06:59 Intake Total 985 Balance 985 Result Diagrams: 03/18/18 06:33 03/18/18 06:33 Phys Exam - Physical Examination HEENT: moist MMs Neck: supple, full ROM Musculoskeletal: no edema Neurological: non-focal, moves all 4 limbs Psychiatric: normal affect, A&O x 3 Skin: no rash, normal turgor Dx/Plan (1) Acute and chronic respiratory failure with hypoxia Code(s): J96.21 - ACUTE AND CHRONIC RESPIRATORY FAILURE WITH HYPOXIA Status: Acute (2) COPD with acute exacerbation Code(s): J44.1 - CHRONIC OBSTRUCTIVE PULMONARY DISEASE W (ACUTE) EXACERBATION Status: Acute (3) Bipolar disorder Code(s): F31.9 - BIPOLAR DISORDER, UNSPECIFIED Status: Acute (4) Hx of hepatitis C Code(s): Z86.19 - PERSONAL HISTORY OF OTHER INFECTIOUS AND PARASITIC DISEASES Status: Acute (5) Anxiety Code(s): F41.9 - ANXIETY DISORDER, UNSPECIFIED Status: Chronic (6) Hypothyroid Code(s): E03.9 - HYPOTHYROIDISM, UNSPECIFIED Status: Chronic (7) Tobacco abuse Code(s): Z72.0 - TOBACCO USE Status: Chronic - Plan Plan: Acute on chronic hypoxic respiratory failure 2/2 copd exacerbation: - Flu & d-dimer negative in outside ED. - Patient still requiring more than home O2 support. Will continue supplemental O2 to maintain sats between 89-92%. Will also continue Duonebs MONTSE Q4H and PRN duonebs. - Will continue PO steroids for a total of 5 days (today is day 2) and PO doxycycline. - Will consider a repeat CXR now that patient has been well hydrated for a day with minimal clinical improvement. Acute on chronic COPD exacerbation: - Likely 2/2 URI as CXR did not show any focal consolidation 2/2 PNA. - Will treat as outlined above. Hypothyroidism - Aware, TSH WNLs. - Will continue home meds. Bipolar disorder: - Aware, will continue home lamictal dose. Anxiety: - Aware, will continue ativan 1mg Q12H PRN which is in line with her home dosing. - Will also continue cymbalta. Tobacco abuse: - Nicotine patch. - Encourage cessation. h/o chronic Hep C: - Hep C ab + on admission. - Aware, will ensure patient is getting appropriate treatment for this. Code: full Prophylaxis: lovenox Family: none at bedside Disposition: home in 2-3 days Addendum - Attending - Attending Attestation Date/Time: 03/18/18 4896 I personally evaluated the patient and discussed the management with Dr. Negro I agree with the History, Examination, Assessment and Plan documented above with any addition or exceptions noted below- Patient feeling better. Still SOB with exertion. Afebrile VSS. A/P: 1) COPD exacerbation - Continue steroids, duonebs 2) Hypothyroidism- continue home medication
[2018-03-18 06:49] LABS: #Lymphocytes 1.6 thou/uL (1.20-3.40); #Monocytes 0.6 thou/uL (0.11-0.59); #Neutrophils 5.5 thou/uL (1.40-6.50); %Basophils 0.3 % (0.0-1.0); %Eosinophils 0.3 % (0.0-10.0); %Lymphocytes 20.7 % (21.0-51.0); %Monocytes 7.3 % (0.0-10.0); %Neutrophils 71.4 % (42.0-75.0); Hemoglobin 12.7 g/dL (12.0-16.0); Mean Corpuscular HGB CONC 31.7 g/dL (32.0-36.0); Mean Corpuscular Hemoglobin 31.5 pg (27.0-31.0); Mean Corpuscular Volume 99.5 fL (78.0-98.0); Mean Platelet Volume 7.4 fL (7.4-10.4); Platelet Count 175 thou/uL (130-400); RBC Distribution Width 12.6 % (11.5-14.5); Red Blood Cell (RBC) Count 4.03 mill/uL (4.20-5.40); White Blood Cell (WBC) Count 7.7 thou/uL (4.8-10.8)
[2018-03-18 07:10] LABS: Anion Gap 9 mmol/L (10-20); BUN (Urea Nitrogen) 13 mg/dL (9.8-20.1); Calc. Creatinine Clearance 150 mL/min (70-130); Calcium 8.6 mg/dL (7.8-10.44); Carbon Dioxide 27 mmol/L (22-29); Chloride 112 mmol/L (98-107); Estimated GFR-MDRD Greater than 90; Glucose 121 mg/dL (70-105); Potassium 3.8 mmol/L (3.5-5.1); Sodium 144 mmol/L (136-145)
[2018-03-18] MEDS: DULoxetine 60 MG CAP PO SCH (09:54)
[2018-03-18] MEDS: predniSONE 20 MG TAB PO SCH (09:54)
[2018-03-18] MEDS: Doxycycline 100 MG CAP PO SCH ×2 (09:55→20:17)
[2018-03-18] MEDS: guaiFENesin/DM ER PO SCH ×2 (09:55→20:17)
[2018-03-18] MEDS: Loratadine 10 MG TAB PO SCH (09:55)
[2018-03-18] MEDS: lamoTRIgine 25 MG TAB PO SCH (09:56)
[2018-03-18] MEDS: Enoxaparin Sodium 40 MG/0.4 ML SYRINGE SC SCH (09:57)
[2018-03-18] MEDS: Pregabalin 50 MG CAP PO SCH ×2 (09:57→20:18)
[2018-03-18] MEDS: Nicotine 14 MG PATCH TD SCH (11:57)
[2018-03-18] MEDS: traZODone HCl 150 MG TAB PO SCH (20:19)
[2018-03-19] MEDS: Sodium Chloride 0.9% 1,000 ML IV SCH (03:00)
[2018-03-19] MEDS: Levothyroxine Sodium 25 MCG TAB PO SCH (05:35)
--- NOTE | 2018-03-19 06:19 | PDOC.FM ---
- Subjective Subjective: NAEO. Patient states she feels better this AM but is still not back to baseline. Was off oxygen after just having to get up and go to the bathroom and was breathing well not in any distress. - Objective MAR Reviewed: Yes Vital Signs & Weight: Vital Signs (12 hours) Temp Pulse Resp BP Pulse Ox 03/19/18 02:21 78 16 95 03/18/18 22:36 79 16 96 03/18/18 20:07 98.0 F 79 16 102/66 94 L 03/18/18 18:20 100 22 H 96 Weight Weight 90.7 kg I&O: 03/17/18 03/18/18 03/19/18 06:59 06:59 06:59 Intake Total 985 2351 Balance 985 2351 Result Diagrams: 03/18/18 06:33 03/19/18 07:26 Phys Exam - Physical Examination Constitutional: NAD HEENT: moist MMs Neck: supple, full ROM Respiratory: wheezing present (diffuse inspiratory and expiratory wheezing heard throughout) Cardiovascular: RRR, no significant murmur Musculoskeletal: no edema, pulses present Neurological: non-focal, moves all 4 limbs Psychiatric: normal affect, A&O x 3 Skin: no rash, normal turgor Dx/Plan (1) Acute and chronic respiratory failure with hypoxia Code(s): J96.21 - ACUTE AND CHRONIC RESPIRATORY FAILURE WITH HYPOXIA Status: Acute (2) COPD with acute exacerbation Code(s): J44.1 - CHRONIC OBSTRUCTIVE PULMONARY DISEASE W (ACUTE) EXACERBATION Status: Acute (3) Bipolar disorder Code(s): F31.9 - BIPOLAR DISORDER, UNSPECIFIED Status: Acute (4) Hx of hepatitis C Code(s): Z86.19 - PERSONAL HISTORY OF OTHER INFECTIOUS AND PARASITIC DISEASES Status: Acute (5) Anxiety Code(s): F41.9 - ANXIETY DISORDER, UNSPECIFIED Status: Chronic (6) Hypothyroid Code(s): E03.9 - HYPOTHYROIDISM, UNSPECIFIED Status: Chronic (7) Tobacco abuse Code(s): Z72.0 - TOBACCO USE Status: Chronic - Plan Plan: Acute on chronic hypoxic respiratory failure 2/2 copd exacerbation: - Patient still on 3L QHS which is more than her home O2 support. Will wean as tolerated to maintain sats between 89-92%. Will also continue Duonebs MONTSE Q4H and PRN duonebs. - Will continue PO steroids for a total of 5 days (today is day 3) and PO doxycycline. Acute on chronic COPD exacerbation: - Likely 2/2 URI as CXR did not show any focal consolidation 2/2 PNA. - Will treat as outlined above. Hypothyroidism - Aware, TSH WNLs. - Will continue home meds. Bipolar disorder: - Aware, will continue home lamictal dose. Anxiety: - Aware, will continue ativan 1mg Q12H PRN which is in line with her home dosing. - Will also continue cymbalta. Tobacco abuse: - Nicotine patch. - Encourage cessation. h/o chronic Hep C: - Hep C ab + on admission. - Aware, will ensure patient is getting appropriate treatment for this. Code: full Prophylaxis: lovenox Family: none at bedside Disposition: home in 2-3 days Addendum - Attending - Attending Attestation Date/Time: 03/19/18 9063 I personally evaluated the patient and discussed the management with Dr. Negro I agree with the History, Examination, Assessment and Plan documented above with any addition or exceptions noted below- Patient feeling better. Able to ambulate with less SOB. Afebrile VSS. A/P: 1) COPD exacerbation- Continue steroids, abx, and duonebs; Possible D/c this afternoon if breathing continues to improve and do well.
[2018-03-19 07:55] LABS: Anion Gap 10 mmol/L (10-20); BUN (Urea Nitrogen) 14 mg/dL (9.8-20.1); Calc. Creatinine Clearance 148 mL/min (70-130); Calcium 8.5 mg/dL (7.8-10.44); Carbon Dioxide 26 mmol/L (22-29); Chloride 110 mmol/L (98-107); Estimated GFR-MDRD Greater than 90; Glucose 97 mg/dL (70-105); Sodium 142 mmol/L (136-145)
[2018-03-19] MEDS: DULoxetine 60 MG CAP PO SCH (09:41)
[2018-03-19] MEDS: Doxycycline 100 MG CAP PO SCH (09:41)
[2018-03-19] MEDS: Loratadine 10 MG TAB PO SCH (09:41)
[2018-03-19] MEDS: predniSONE 20 MG TAB PO SCH (09:41)
[2018-03-19] MEDS: Pregabalin 50 MG CAP PO SCH (09:42)
[2018-03-19] MEDS: lamoTRIgine 25 MG TAB PO SCH (09:42)
[2018-03-19] MEDS: Enoxaparin Sodium 40 MG/0.4 ML SYRINGE SC SCH (09:43)
[2018-03-19] MEDS: guaiFENesin/DM ER PO SCH (09:59)
[2018-03-19] MEDS: Nicotine 14 MG PATCH TD SCH (11:27)
[2018-03-19 17:18] VITALS: BP 96/61; TEMP 98.1
== END 2018-03-19 18:25 | disposition home or self-care (01) | DRG 190 ==
LOC: ERS 06:21 → ERHOLD 07:37 → T4-B 09:25
PROVIDERS: ADMIT Family Medicine; ATTEND Family Medicine
DX: J44.1 Chronic obstructive pulmonary disease with (acute) exacerbation (principal); J96.21 Acute and chronic respiratory failure with hypoxia; R65.10 Systemic inflammatory response syndrome (SIRS) of non-infectious origin without acute organ dysfunction; E03.9 Hypothyroidism, unspecified; Z72.0 Tobacco use; M54.9 Dorsalgia, unspecified; G89.29 Other chronic pain; F12.10 Cannabis abuse, uncomplicated; F41.9 Anxiety disorder, unspecified; F32.9 Major depressive disorder, single episode, unspecified; F31.9 Bipolar disorder, unspecified; B19.20 Unspecified viral hepatitis C without hepatic coma
CPT/HCPCS: 36415; 80048; 82805; 84443; 85025; 86706; 86780; 86803; 87340; 87389; 94640; 99285; J1200; J1650; J2060; J2765; J7506; J7620

== ENCOUNTER 2018-06-01 10:02 | Observation (INO) | payer OTHER ==
[2018-06-01] MEDS ORDERED: Albuterol Sulfate 2.5 mg/0.5 ml Neb ONE ×2 (10:34→10:35)
[2018-06-01 12:43] LABS: Actual Bicarbonate (HCO3a) 24.7 mEq/L (22-28); Analyzer IN Cardio ER; Base Excess (BEa) -1.2 mEq/L (-2.0 to +3.0); CO2 Tension 45.5 mmHg (35.0-45.0); Calcium, Ionized 1.19 mmol/L (1.12-1.30); Carboxyhemoglobin (COHb) 0.6 gm% (0.0-3.0); Hemoglobin (Hb) 14.9 g/dL (12.0-16.0); Potassium - ABG Lab 3.84 mmol/L (3.70-5.30); pH, Arterial 7.35 (7.35-7.45)
[2018-06-01 12:47] LABS: ALV-art Gradient 72.765 (0-20); Puncture Site LR
[2018-06-01] MEDS ORDERED: Lorazepam 2 MG/ML VIAL ONE (14:37)
[2018-06-01] MEDS ORDERED: Bacteriostatic Water 30 ML VIAL FS PRN (14:38)
[2018-06-01 14:50] LABS: Troponin I Less than 0.010 ng/mL (< 0.028)
[2018-06-01 15:40] VITALS: BMI 32.4
--- NOTE | 2018-06-01 16:01 | HP ---
CHIEF COMPLAINT: Shortness of breath. HISTORY OF PRESENT ILLNESS: This patient is a 52-year-old female with a history of COPD, who continues to smoke and continues to smoke marijuana as well. The patient presented to the emergency department initially in [place] with the complaint of worsening shortness of breath. She reported it had been worsening over the past several days to week. She had been using her inhalers at home without significant improvement. She thought she might be having fever mostly because she was having to turn her air conditioner off and on because she was getting hot and cold. She reports that fairly recently her son was ill and then she had a virus, but has not had any of those symptoms in the last few days. The patient reports that she has tried to quit smoking, but has multiple family members in the home that smoke, making it very difficult for her to do so. REVIEW OF SYSTEMS: The patient has the above symptoms and some wheezing. All other systems were reviewed and all pertinent positives and negatives noted in the history of present illness. PAST MEDICAL HISTORY: Notable for the severe COPD, hypothyroidism, history of spinal infection in 2007 requiring some sort of surgical intervention, which may have affected the lungs as well. History of anxiety or bipolar disorder. PAST SURGICAL HISTORY: As above. Spine surgery, lung surgery, x2, knee replacement x2, shoulder surgery. FAMILY HISTORY: Mother had TIAs. SOCIAL HISTORY: The patient is a smoker as a 35-pack years down to about 3 cigarettes per day. Smokes marijuana. States she does not do it daily. She has a history of crystal meth use as well. ALLERGIES: MORPHINE, KEFLEX. CURRENT MEDICATIONS: The patient does not specifically know her medicines nor does she have a list. States she takes Singulair, Advair, ProAir inhaler, thyroid medication, vitamin D and states that she recently had Cymbalta changed to some type of other mood stabilizer. PHYSICAL EXAMINATION: VITAL SIGNS: Temperature is 98.4, pulse 90, respirations 24, O2 saturation currently is 98% on room air, BP is 137/74. GENERAL APPEARANCE: Age-appropriate female. She is very anxious at the moment, fidgeting in the bed substantially. She is otherwise awake and alert and interactive. HEENT: PERRL. No OP lesions. NECK: Supple and symmetric. HEART: Regular rate and rhythm. LUNGS: Diminished with some scattered rales. ABDOMEN: Soft, nontender, and nondistended. EXTREMITIES: No cyanosis, clubbing, or edema. Peripheral pulses are present. SKIN: Warm and dry. LABORATORY DATA: White count 8.9, hemoglobin is 14.5, platelets 180. ABG shows pH 7.35, pCO2 45.5, PO2 70. Sodium 146, potassium 3.8, chloride 108, CO2 is 27, BUN 20, creatinine 0.71, glucose 130, lactic acid 2.0, calcium 9.6. AST is 10, ALT 11, alkaline phosphatase 112. Troponin less than 0.01 and less than 0.01. BNP is less than 10. Albumin 4. Chest x-ray shows no acute cardiopulmonary disease. IMPRESSION AND PLAN: 1. Chronic obstructive pulmonary disease exacerbation with possible bronchitis. The patient will be placed on observation. Her sats were somewhat low earlier. She seems to be improving after some continuous nebulizer treatments in the emergency department. She also received Solu-Medrol and magnesium and azithromycin. She is going to stay on the bronchodilator, Solu-Medrol. We will give her some p.o. doxycycline and no supplemental oxygen is needed. 2. Acute on chronic hypoxic respiratory failure. Supplemental oxygen as needed. 3. Hypothyroidism. Hopefully, the patient will not be here long and she will establish her thyroid dose. 4. Anxiety. We will give her a dose of lorazepam presently. Job ID: [id number] [facility]
[2018-06-01 17:18] LABS: Troponin I Less than 0.010 ng/mL (< 0.028)
[2018-06-01] MEDS: methylPREDNISolone Sod Succ 40 MG VIAL IVP SCH ×2 (17:39→23:43)
[2018-06-01] MEDS ORDERED: methylPREDNISolone Sod Succ 40 MG VIAL IVP SCH (18:00)
[2018-06-01] MEDS: Doxycycline 100 MG CAP PO SCH (20:54)
[2018-06-01] MEDS: Montelukast Sodium 10 mg Tablet PO SCH (20:55)
[2018-06-01] MEDS: Lorazepam 0.5 MG TAB PO PRN (23:42)
[2018-06-02] MEDS: methylPREDNISolone Sod Succ 40 MG VIAL IVP SCH ×2 (05:45→12:13)
[2018-06-02] MEDS: Lorazepam 0.5 MG TAB PO PRN ×2 (09:42→20:58)
[2018-06-02] MEDS: Doxycycline 100 MG CAP PO SCH ×2 (09:42→20:58)
[2018-06-02] MEDS: Acetaminophen 325 MG TAB PO PRN ×2 (12:11→20:58)
--- NOTE | 2018-06-02 14:31 | PDOC.PN ---
- Subjective Encounter Start Date: 06/02/18 Encounter Start Time: 14:29 Ms. Silva was seen today in follow-up of COPD exacerbation and pneumonia. She is breathing a little better. - Objective Resuscitation Status - Order Detail: 06/01/18 14:23 Resuscitation Status Routine Resuscitation Status: FULL: Full Resuscitation Discussed with: Patient STEFANO Reviewed: Yes Vital Signs & Weight: Vital Signs (12 hours) Temp Pulse Resp BP Pulse Ox 06/02/18 10:44 98 24 H 98 06/02/18 10:34 94 L 06/02/18 08:09 98.0 F 100 20 113/77 91 L 06/02/18 04:00 98.0 F 83 16 112/73 91 L Weight Weight 189 lb 1 oz I&O: 06/01/18 06/02/18 06/03/18 05:59 06:59 06:59 Intake Total 320 Balance 320 Additional Labs: Accuchecks 06/02/18 04:55 POC Glucose 130 H Phys Exam - Physical Examination HEENT: PERRLA Respiratory: no rhonchi, wheezing present + wheezing in the right mid lung field Cardiovascular: RRR, no significant murmur, no rub Gastrointestinal: soft, non-tender, no distention, positive bowel sounds Musculoskeletal: no edema Dx/Plan (1) Acute and chronic respiratory failure with hypoxia Code(s): J96.21 - ACUTE AND CHRONIC RESPIRATORY FAILURE WITH HYPOXIA Status: Acute Comment: Improved with pulmonary support, see #2 below (2) Bipolar disorder Code(s): F31.9 - BIPOLAR DISORDER, UNSPECIFIED Status: Acute (3) COPD with acute exacerbation Code(s): J44.1 - CHRONIC OBSTRUCTIVE PULMONARY DISEASE W (ACUTE) EXACERBATION Status: Acute Comment: Continue Solumedrol, Duonebs, Zithromax, Dulera, wean O2 as tolerated - Plan * Acute on chronic respiratory failure due to COPD exacerbation- improving * Will continue IV antibiotics * Begin to cut back on steroids * Continue Duonebs * Bipolar Disorder- re-start her home medications.
[2018-06-02] MEDS ORDERED: lamoTRIgine 100 MG TAB PO SCH (18:00)
[2018-06-02] MEDS ORDERED: lamoTRIgine 25 MG TAB PO SCH (18:00)
[2018-06-02] MEDS: Mometasone/Formoterol 120 PUFF INHALER INH SCH (19:26)
[2018-06-02] MEDS: Montelukast Sodium 10 mg Tablet PO SCH (20:58)
[2018-06-02] MEDS ORDERED: traZODone HCl 150 MG TAB PO SCH (21:00)
[2018-06-03] MEDS ORDERED: Levothyroxine Sodium 25 MCG TAB PO SCH (06:00)
[2018-06-03] MEDS ORDERED: predniSONE 20 MG TAB PO SCH (08:00)
[2018-06-03] MEDS: Mometasone/Formoterol 120 PUFF INHALER INH SCH (08:17)
[2018-06-03] MEDS: Doxycycline 100 MG CAP PO SCH (08:23)
[2018-06-03] MEDS ORDERED: Pregabalin 50 MG CAP PO SCH (09:00)
[2018-06-03] MEDS ORDERED: DULoxetine 60 MG CAP PO SCH (09:00)
[2018-06-03] MEDS: Lorazepam 0.5 MG TAB PO PRN (10:48)
[2018-06-03 12:48] VITALS: BP 107/70; TEMP 98.4
--- NOTE | 2018-06-03 15:12 | PDOC.PN ---
- Subjective Encounter Start Date: 06/03/18 Encounter Start Time: 15:10 Ms. Silva was seen today in follow-up of COPD exacerbation. She is breathing better. She has been seen walking the halls without oxygen, and in no distress. - Objective Resuscitation Status - Order Detail: 06/01/18 14:23 Resuscitation Status Routine Resuscitation Status: FULL: Full Resuscitation Discussed with: Patient MAR Reviewed: Yes Vital Signs & Weight: Vital Signs (12 hours) Temp Pulse Resp BP Pulse Ox 06/03/18 12:48 98.4 F 94 18 107/70 92 L 06/03/18 08:21 98.1 F 75 18 99/59 L 95 06/03/18 08:17 75 16 95 06/03/18 05:00 98.0 F 75 18 104/59 L 95 Weight Weight 189 lb 1 oz I&O: 06/02/18 06/03/18 06/04/18 06:59 06:59 06:59 Intake Total 1680 Balance 1680 Phys Exam - Physical Examination HEENT: PERRLA Respiratory: no rales, no rhonchi, wheezing present + bilateral scatter wheezing Cardiovascular: RRR, no significant murmur, no rub Gastrointestinal: soft, non-tender, no distention, positive bowel sounds Musculoskeletal: no edema, pulses present Dx/Plan (1) Acute and chronic respiratory failure with hypoxia Code(s): J96.21 - ACUTE AND CHRONIC RESPIRATORY FAILURE WITH HYPOXIA Status: Acute Comment: Improved with pulmonary support, see #2 below (2) Bipolar disorder Code(s): F31.9 - BIPOLAR DISORDER, UNSPECIFIED Status: Acute (3) COPD with acute exacerbation Code(s): J44.1 - CHRONIC OBSTRUCTIVE PULMONARY DISEASE W (ACUTE) EXACERBATION Status: Acute Comment: Continue Solumedrol, Duonebs, Zithromax, Dulera, wean O2 as tolerated - Plan * COPD Exacerbation- improved * She is stable for discharge home and close follow-up * Smoking cessation was encouraged- she is currently on Chantix for this..
--- NOTE | 2018-06-04 04:08 | DIS ---
DATE OF ADMISSION: 06/01/2018 DATE OF DISCHARGE: 06/03/2018 DISCHARGE DISPOSITION: Home. PRIMARY DISCHARGE DIAGNOSES: 1. Chronic obstructive pulmonary disease exacerbation. 2. Acute on chronic respiratory failure, secondary to #1. 3. Bipolar disorder. 4. Generalized anxiety. 5. Hypothyroidism. DISCHARGE MEDICATIONS: Include: 1. Levaquin 500 mg daily. 2. Ativan 1 mg twice a day as needed. 3. Albuterol nebs q.4 hours p.r.n. 4. Tessalon Perles 100 mg q.4 hours as needed. 5. Trazodone 150 mg at bedtime. 6. Lyrica 100 mg daily. 7. Singulair 10 mg at bedtime. 8. Levothyroxine 25 mcg daily. 9. Lamictal 100 mg daily. 10. Symbicort 60 mg daily. 11. Vitamin D3 of 2000 units daily. 12. Zyrtec 5 mg daily. 13. Symbicort 80/4.5, 2 puffs twice daily. 14. Albuterol HFA q.4 hours p.r.n. CODE STATUS: Full code. ALLERGIES: MORPHINE AND KEFLEX. HOSPITAL COURSE: Ms. Silva is a pleasant 52-year-old, who was admitted for shortness of breath and wheezing. She was found to have acute on chronic respiratory failure due to chronic obstructive pulmonary disease exacerbation. She was admitted and started on neb treatments, antibiotics and steroids. She improved over the course of the next couple of days. She does continue to smoke and we did discuss smoking cessation. She says she is already taking Chantix at home and is down to two cigarettes a day and intends to continue reducing her cigarette usage and hopefully to quit. She was instructed to follow up with her primary care physician in approximately 1 week. Job ID: [id number]
== END 2018-06-03 15:54 | disposition home or self-care (01) ==
LOC: ERS 10:02 → T4-A 15:24
PROVIDERS: ADMIT Internal Medicine; ATTEND Internal Medicine
DX: J44.1 Chronic obstructive pulmonary disease with (acute) exacerbation (principal); J96.21 Acute and chronic respiratory failure with hypoxia; F31.9 Bipolar disorder, unspecified; F41.1 Generalized anxiety disorder; E03.9 Hypothyroidism, unspecified; F17.210 Nicotine dependence, cigarettes, uncomplicated; Z79.899 Other long term (current) drug therapy; Z88.1 Allergy status to other antibiotic agents; Z88.5 Allergy status to narcotic agent
CPT/HCPCS: 36415; 36416; 82805; 87149; 94664; 94760; 96361; 96365; 96374; 96375; 96376; G0378; J1956; J2060; J2920; J7611; J7620

== ENCOUNTER 2018-07-30 00:06 | Observation (INO) | payer OTHER ==
[2018-07-30] MEDS ORDERED: Dexamethasone 10 MG/ML VIAL ONE (01:31)
[2018-07-30] MEDS ORDERED: Magnesium 2 GM/50 ML BAG (IN WATER) ONE (01:31)
[2018-07-30] MEDS ORDERED: Albuterol Sulfate 2.5 mg/3 ml Neb ONE (01:32)
[2018-07-30] MEDS ORDERED: Bisacodyl 5 MG TAB PO PRN (04:16)
--- NOTE | 2018-07-30 04:52 | HP ---
PRIMARY CARE PROVIDER: Out of town, [place]. CHIEF COMPLAINT: Wheezing. HISTORY OF PRESENT ILLNESS: Ms. Silva is a pleasant 52-year-old lady, who was seen at [facility] on July 30, 2018. She reports that over the last 2 days, she has had shortness of breath. Shortness of breath is worse with exertion. She denies orthopnea or paroxysmal nocturnal dyspnea. She also reports dry cough. She also reports wheezing. She denies any fevers. She denies any nausea or vomiting. She denies any chest pain. REVIEW OF SYSTEMS: All other systems reviewed and found to be negative. PAST MEDICAL HISTORY: Hypothyroidism, asthma, COPD, chronic bronchitis, emphysema, staphylococcal spine infection. PAST SURGICAL HISTORY: Right rotator cuff surgery, section x2, bilateral knee replacement, tubal ligation, surgery for deviated nasal septum, back surgery, lung surgery. PSYCHIATRIC HISTORY: Anxiety. SOCIAL HISTORY: The patient denies alcohol use and recreational drug use. She smokes half to one pack of cigarettes a day. FAMILY HISTORY: She denies any family history of coronary artery disease. ALLERGIES: KEFLEX AND MORPHINE. CURRENT MEDICATIONS: 1. Levothyroxine 25 mcg daily. 2. Lyrica 100 mg 2 times a day. 3. Singulair 10 mg daily. PHYSICAL EXAMINATION: GENERAL: On examination, Ms. Silva is awake and alert, not in acute distress. VITAL SIGNS: Blood pressure is 123/81, pulse 102, respiratory rate 17, and oxygen saturation 97% on room air. She is afebrile. EYES: No scleral icterus, no conjunctival pallor. ENT: Moist mucosal membranes, no oropharyngeal erythema or exudates. NECK: Supple, nontender, trachea is midline. RESPIRATORY: Accessory muscles of breathing are active. Chest wall movements are symmetric bilaterally. Lung examination reveals diffuse expiratory wheeze in overall lung cabrera. CARDIOVASCULAR: S1 and S2 are heard, tachycardic and regular. Peripheral pulses palpable. No carotid bruit. No pericardial rub. ABDOMEN: Soft, nontender, bowel sounds heard. NEUROLOGIC: Cranial nerves 2 through 12 intact, deep tendon reflexes 2+. MUSCULOSKELETAL: Power is 5/5 in all 4 extremities. SKIN: No rashes or subcutaneous nodules. LYMPHATIC: No cervical lymphadenopathy. PSYCHIATRIC: Normal mood, normal affect, the patient is oriented to person, place, and time. LABORATORY DATA: Ms. Silva's labs and investigations were reviewed. Chest x-ray does not show any pulmonary infiltrates. Troponin is elevated at 0.61. Sodium and potassium levels are normal. Creatinine is normal. Blood urea nitrogen is elevated at 21. LFTs are normal. White count, hemoglobin and platelet count are normal. ASSESSMENT AND PLAN: Ms. Silva is a pleasant 52-year-old lady, who was seen at [facility] on July 30, 2018. Her problem list includes: 1. Acute hypoxic respiratory failure: Ms. Silva is presenting with acute hypoxic respiratory failure, most likely secondary to chronic obstructive pulmonary disease exacerbation. She will be admitted to the hospital for further management including oxygen, steroids, and bronchodilators. Further management depending on clinical outcome. Given her elevated D-dimer, we will also check CT angiogram of the chest to rule out pulmonary embolism. 2. Hypothyroidism: We will continue Synthroid. 3. Tobacco abuse: The patient has been counseled regarding tobacco cessation. We will start her on nicotine replacement therapy. Many thanks for allowing me to participate in Ms. Silva's care. Please feel free to contact me with any questions or concerns. LEVEL OF RISK: Moderate. LEVEL OF COMPLEXITY: Moderate. Job ID: [id number]
[2018-07-30] MEDS ORDERED: Lorazepam 2 MG/ML VIAL ONE ×2 (04:58→11:38)
[2018-07-30] MEDS ORDERED: Acetaminophen 325 MG TAB ONE (05:42)
[2018-07-30] MEDS ORDERED: Azithromycin 500 MG in Sodium Chloride 0.9% 250 ML 250 ML IVPB SCH (06:00)
[2018-07-30] MEDS ORDERED: Nicotine 21 MG PATCH TD SCH (06:00)
[2018-07-30] MEDS: Acetaminophen 325 MG TAB PO PRN ×2 (06:40→14:15)
[2018-07-30] MEDS ORDERED: predniSONE 20 MG TAB ONE (08:00)
[2018-07-30] MEDS ORDERED: Enoxaparin Sodium 40 MG/0.4 ML SYRINGE ONE (08:00)
--- NOTE | 2018-07-30 08:13 | CT ---
CTA CHEST WITH 3D RENDERING: Indication: COPD exacerbation, cough, wheezing. FINDINGS: No large filling defect of the pulmonary arteries is identified. The lungs are clear of consolidation . No effusion or pneumothorax. There are mild areas of interspersed alveolar lucency bilaterally comp atible with pulmonary emphysema. Linear densities of the bilateral lung bases, likely atelectasis. Th e thoracic aorta is normal in caliber with mild scattered vascular calcification. There are nonspecif ic borderline sized mediastinal lymph nodes. Scattered osseous degenerative change is present. Streak artifact emanates from spinal hardware at the upper abdomen. IMPRESSION: 1. No large central pulmonary embolus. 2. Pulmonary emphysema. 3. Borderline sized nonspecific mediastinal lymph nodes. Correlate clinically. POS: TJ
[2018-07-30] MEDS ORDERED: Enoxaparin Sodium 40 MG/0.4 ML SYRINGE SC SCH (09:00)
[2018-07-30] MEDS ORDERED: predniSONE 20 MG TAB PO SCH (09:00)
[2018-07-30] MEDS: Lorazepam 2 MG/ML VIAL SLOW IVP PRN ×2 (11:44→16:13)
--- NOTE | 2018-07-30 12:08 | PDOC.PN ---
- Subjective Encounter Start Date: 07/30/18 Encounter Start Time: 10:15 Subjective: Examined patient, sitting in a chair -: Animated, in no acute distress - Objective Vital Signs & Weight: Vital Signs (12 hours) Temp Pulse Resp BP Pulse Ox 07/30/18 11:45 98.4 F 113 H 20 120/69 92 L 07/30/18 08:00 98.2 F 102 H 20 135/76 90 L Weight Weight 101.605 kg I&O: 07/29/18 07/30/18 07/31/18 06:59 06:59 06:59 Intake Total 500 Balance 500 Phys Exam - Physical Examination HEENT: PERRLA, moist MMs Neck: no nodes Respiratory: wheezing present 89-90% on RA, Cardiovascular: RRR Gastrointestinal: soft, non-tender Musculoskeletal: no edema Neurological: non-focal Lymphatic: no nodes Psychiatric: normal affect, A&O x 3 Skin: no rash, normal turgor, cap refill <2 seconds Dx/Plan (1) Acute respiratory failure with hypoxia Code(s): J96.01 - ACUTE RESPIRATORY FAILURE WITH HYPOXIA Status: Acute (2) Bipolar disorder Code(s): F31.9 - BIPOLAR DISORDER, UNSPECIFIED Status: Chronic (3) COPD with acute exacerbation Code(s): J44.1 - CHRONIC OBSTRUCTIVE PULMONARY DISEASE W (ACUTE) EXACERBATION Status: Acute Comment: Continue Solumedrol, Duonebs, Zithromax, Dulera, wean O2 as tolerated (4) Hyperglycemia Code(s): R73.9 - HYPERGLYCEMIA, UNSPECIFIED Status: Chronic - Plan cont current plan of care Neb treatments, steroids, Levaquin -: Patient is still 89-90% on RA, will continue therapy and re-assess -: Most likely home in AM * . Review of Systems - Review of Systems Respiratory: Shortness of Breath, SOB with Excertion, Wheezing - Medications/Allergies Allergies/Adverse Reactions: Allergies Allergy/AdvReac Type Severity Reaction Status Date / Time morphine Allergy Mild Hives Verified 06/01/18 15:31 cephalexin Allergy Verified 06/01/18 15:31 Medications: Current Medications Acetaminophen (Tylenol) 650 mg PO Q4H PRN PRN Reason: Headache/Fever/Mild Pain (1-3) Last Admin: 07/30/18 06:40 Dose: 650 mg Albuterol/Ipratropium (Duoneb) 3 ml NEB [id number] [facility] Last Admin: 07/30/18 08:44 Dose: 3 ml Albuterol/Ipratropium (Duoneb) 3 ml NEB [id number] PRN PRN Reason: SOB &/or Wheezing Bisacodyl (Dulcolax) 10 mg PO DAILYPRN PRN PRN Reason: Constipation Enoxaparin Sodium (Lovenox) 40 mg SC 0900 [facility] Last Admin: 07/30/18 08:16 Dose: 40 mg Azithromycin 500 mg/ Sodium (Chloride) 250 mls @ 250 mls/hr IVPB Q24HR [facility] Last Admin: 07/30/18 06:03 Dose: 250 mls Lorazepam (Ativan) 1 mg SLOW IVP Q4H PRN PRN Reason: Anxiety/Agitation Last Admin: 07/30/18 11:44 Dose: 1 mg Nicotine (Nicoderm Patch) 21 mg TD Q24HR [facility] Last Admin: 07/30/18 06:03 Dose: 21 mg Prednisone (Prednisone) 40 mg PO DAILY [facility] Last Admin: 07/30/18 08:19 Dose: 40 mg Sodium Chloride (Flush - Normal Saline) 10 ml IVF PRN PRN PRN Reason: Saline Flush Last Admin: 07/30/18 11:44 Dose: 10 ml
[2018-07-30] MEDS ORDERED: ISOVUE-370 76%-LOCM 1 ML ONE (12:59)
[2018-07-30 13:37] VITALS: BP 128/71; TEMP 98; BMI 38.5
[2018-07-30 15:06] LABS: Bilirubin Negative (Negative); Blood, Urine Negative (Negative); Clarity CLEAR (Clear); Glucose, Urine (Dipstick) Negative (Negative); Leukocyte Negative (Negative); Nitrite Negative (Negative); Protein, Urine (Dipstick) Negative (Neg-Trace); Specific Gravity, Urine 1.028 (1.002-1.036); Urobilinogen 0.2 mg/dL (0.2-1.0); pH, Urine 5.5 (5.0-9.0)
[2018-07-30 15:08] LABS: Bacteria/HPF None Seen HPF (None Seen); Hyaline Casts/LPF 0-3 HYALINE CAST LPF (0-3 Hyaline); Pathc Cast-AUWi Flag 0.54 (0-2.49); RBC/HPF 0-3 HPF (0-3); Squamous Epithelial 0-3 HPF (0-3); WBC/HPF 0-3 HPF (0-3)
[2018-07-30 15:41] LABS: Pregnancy Test - Urine (BHCG) Negative (Negative); Pregu Control Background? CLEAR/WHITE (CLR/WHITE); Pregu Control Bar Appear? YES (CONTROL BAR); Specific Gravity 1.028 (1.002-1.036)
--- NOTE | 2018-07-31 05:08 | SS ---
DATE OF ADMISSION: 07/30/2018 DATE OF DISCHARGE: 07/30/2018 PRIMARY CARE PHYSICIAN: Current PCP is at [facility] in [place]. Navigation team has set up an appointment with Laine Nguyễn MD, on 2018 for followup. CONSULTANTS: None. PROCEDURES: 1. The patient had a chest thorax CTA which showed no large central pulmonary emboli, pulmonary emphysema. 2. Borderline size nonspecific mediastinal lymph nodes. DISCHARGE DIAGNOSES: 1. Chronic obstructive pulmonary disease exacerbation, improved. 2. Hypothyroidism. 3. Tobacco abuse. HOSPITAL COURSE: Ms. Silva is a 52-year-old female, presented to the emergency room from [place] with evaluation for wheezing, shortness of breath, COPD exacerbation. The patient denied chest pain at that time. She was given DuoNeb, Ativan, Levaquin, Decadron, magnesium, and sent to [facility] for admission. Nebulizer treatments and steroids were continued. The patient improved during the day. By the time, the patient received a room from the ER this afternoon, the patient was saturating at 96% on room air, felt well enough to go down to the lobby multiple times to see friends and family, was talking in complete sentences without any dyspnea. The patient felt well enough to return home. Discharge process started. Lab work and vital signs remained stable. REVIEW OF SYSTEMS: The patient reports improved shortness of breath. Does report mild cough. Reports wheezing, although this is improved. Denies any chest pain, palpitations, or abdominal pain. All other systems are negative unless mentioned in the hospital course. PHYSICAL EXAMINATION: VITAL SIGNS: Temperature is 98.4, pulse is 79, respirations 20, pulse ox is 95% on room air, and blood pressure 120/69. CONSTITUTIONAL: The patient appears nontoxic; is oriented to person, place, and time; is in no apparent distress. HEENT: Head is atraumatic and normocephalic. Eyes; eyelids are normal to inspection. Pupils equally round and reactive to light. ENT; mouth exam is normal. Mucous membranes are moist. NECK: Normal range of motion. Trachea is midline. RESPIRATORY/CHEST: No findings of respiratory distress. There is mild diffuse wheezing on expiration. Chest movement is symmetrical. CARDIOVASCULAR: Regular heart rate and rhythm. Heart sounds are normal. ABDOMEN: Nontender. Bowel sounds are heard. BACK: Normal inspection. Normal range of motion. EXTREMITIES: Upper extremity, normal inspection, normal range of motion. Radial pulses normal. Lower extremity, inspection, normal range of motion. Pedal pulses normal. NEUROLOGIC: The patient is oriented to person, place, and time. Speech is normal. No focal motor or sensory deficits. SKIN: Warm and dry. Normal in color. ALLERGIES: MORPHINE AND CEPHALEXIN. HOME MEDICATIONS: Home medications restarted. 1. DuoNeb 3 mL q.4 hours as needed. We have sent a prescription for a new box. 2. Azithromycin 250 mg p.o. daily x3 days. 3. Atarax 25 mg p.o. t.i.d. as needed for anxiety and agitation. 4. Prednisone 40 mg p.o. daily. 5. Vitamin D 2000 units daily. 6. Symbicort 84.5, one puff twice daily. 7. Levothyroxine 25 mcg p.o. daily. 8. Trazodone 150 mg p.o. at bedtime. 9. Lamictal 150 mg p.o. daily. 10. Cymbalta 60 mg p.o. daily. 11. Singulair 10 mg p.o. at bedtime. 12. Cetirizine 10 mg p.o. daily. 13. ProAir two puffs every 6 hours as needed. We sent a new prescription for this per patient's request. DISCHARGE CONDITION: Stable. The patient was discharged home. The patient was instructed to follow up with Dr. Nguyễn within 1 week. Job ID: [id number]
== END 2018-07-30 17:20 | disposition home or self-care (01) ==
LOC: ERS 00:06 → ERHOLD 03:14 → 2SW 13:27
PROVIDERS: ADMIT Internal Medicine; ATTEND Internal Medicine
DX: J44.1 Chronic obstructive pulmonary disease with (acute) exacerbation (principal); J96.01 Acute respiratory failure with hypoxia; E03.9 Hypothyroidism, unspecified; F41.9 Anxiety disorder, unspecified; F17.210 Nicotine dependence, cigarettes, uncomplicated; F31.9 Bipolar disorder, unspecified; R73.9 Hyperglycemia, unspecified; Z79.1 Long term (current) use of non-steroidal anti-inflammatories (NSAID); Z79.51 Long term (current) use of inhaled steroids; Z79.899 Other long term (current) drug therapy; Z88.1 Allergy status to other antibiotic agents; Z88.5 Allergy status to narcotic agent
CPT/HCPCS: 71275; 81001; 81025; 87086; 94640; 94644; 96361; 96365; 96372; 96375; 96376; 99406; G0378; J0456; J1100; J1650; J1956; J2060; J3475; J7050; J7512; J7611; J7620; Q9966

== ENCOUNTER 2018-08-25 14:27 | Inpatient (IN) | payer OTHER ==
[2018-08-25] MEDS ORDERED: Lorazepam 2 MG/ML VIAL ONE (14:43)
[2018-08-25 15:06] LABS: #Basophils 0.1 thou/uL (0.0-0.2); #Eosinphils 0.2 thou/uL (0.0-0.7); #Lymphocytes 1.3 thou/uL (1.20-3.40); #Monocytes 0.2 thou/uL (0.11-0.59); #Neutrophils 5.3 thou/uL (1.40-6.50); %Basophils 0.7 % (0.0-1.0); %Eosinophils 2.8 % (0.0-10.0); %Lymphocytes 18.7 % (21.0-51.0); %Monocytes 3.1 % (0.0-10.0); %Neutrophils 74.7 % (42.0-75.0); Hemoglobin 15.1 g/dL (12.0-16.0); Mean Corpuscular HGB CONC 31.6 g/dL (32.0-36.0); Mean Corpuscular Hemoglobin 31.3 pg (27.0-31.0); Mean Corpuscular Volume 99.2 fL (78.0-98.0); Mean Platelet Volume 7.5 fL (7.4-10.4); Platelet Count 227 thou/uL (130-400); Red Blood Cell (RBC) Count 4.81 mill/uL (4.20-5.40); White Blood Cell (WBC) Count 7.1 thou/uL (4.8-10.8)
--- NOTE | 2018-08-25 15:22 | RAD ---
Exam: Chest one view HISTORY:Dyspnea Comparison: 07/29/2018 FINDINGS: Lungs: No masses or consolidation. Cardiac silhouette: Normal size Pulmonary vessels: Normal Pleural Spaces: Clear Pneumothorax: None Osseous abnormalities: None of acuity. IMPRESSION: No focal consolidation.
[2018-08-25 15:30] LABS: ALT (SGPT) 18 U/L (8-55); AST (SGOT) 16 U/L (5-34); Albumin 4.5 g/dL (3.5-5.0); Alkaline Phosphatase 87 U/L (40-150); Anion Gap 14 mmol/L (10-20); BUN (Urea Nitrogen) 12 mg/dL (9.8-20.1); Bilirubin, Total 0.4 mg/dL (0.2-1.2); Calc. Creatinine Clearance 0 mL/min (70-130); Calcium 9.2 mg/dL (7.8-10.44); Carbon Dioxide 25 mmol/L (22-29); Chloride 108 mmol/L (98-107); Estimated GFR-MDRD Greater than 90; Globulin 2.5 g/dL (2.4-3.5); Glucose 144 mg/dL (70-105); Potassium 4.5 mmol/L (3.5-5.1); Sodium 142 mmol/L (136-145)
[2018-08-25 15:33] LABS: Actual Bicarbonate (HCO3a) 25.3 mEq/L (22-28); Analyzer IN Cardio ER; Base Excess (BEa) -2.9 mEq/L (-2.0 to +3.0); CO2 Tension 57.8 mmHg (35.0-45.0); Calcium, Ionized 1.18 mmol/L (1.12-1.30); Carboxyhemoglobin (COHb) 0.9 gm% (0.0-3.0); Hemoglobin (Hb) 15.4 g/dL (12.0-16.0); O2 Tension (PaO2) 60.9 mmHg (80.0-100.0); Potassium - ABG Lab 4.09 mmol/L (3.70-5.30); pH, Arterial 7.26 (7.35-7.45)
[2018-08-25] MEDS ORDERED: traMADol HCl 50 MG TAB PO PRN (16:57)
[2018-08-25 20:06] VITALS: BMI 36.6
[2018-08-25] MEDS: Lorazepam 2 MG/ML VIAL SLOW IVP PRN (20:52)
[2018-08-25] MEDS: methylPREDNISolone Sod Succ 40 MG VIAL IVP SCH ×2 (20:52→23:14)
[2018-08-25] MEDS: Famotidine 20 MG TAB PO SCH (20:53)
[2018-08-25] MEDS: traZODone HCl 150 MG TAB PO SCH (20:54)
[2018-08-25] MEDS ORDERED: traZODone HCl 50 MG TAB PO SCH (21:00)
--- NOTE | 2018-08-25 23:21 | HP ---
CHIEF COMPLAINT: Shortness of breath. HISTORY OF PRESENT ILLNESS: This patient is a 52-year-old female, who was recently admitted to this facility with COPD exacerbation and dyspnea. She was discharged on 07/30/2018, from an observation stay. The patient reports that she awakened last night, having significant dyspnea, she is worse with exertion. She is reported a significant increase in her upper respiratory allergy and allergic rhinitis type symptoms. She also has a cough, it has been persistent and is now productive, although she is not expectorating any sputum and could not characterize it otherwise. She reports that this is similar to her previous episodes of COPD exacerbation. She also has some slight heaviness in her chest, which is consistent with her prior exacerbations as well and is not new for her. She reports no significant fevers or chills and no ill contacts. She does admit to having significant anxiety, which is worse when her breathing becomes problematic like this. She has noted herself wheezing. She has had some mild associated nausea, but no vomiting and the nausea is not significant. Denies any peripheral edema. REVIEW OF SYSTEMS: All other systems reviewed. All pertinent positives and negatives noted in the history of present illness. PAST MEDICAL HISTORY: Notable for COPD with associated chronic bronchitis, history of hypothyroidism, history of anxiety, history of staphylococcal infection of the spine. PAST SURGICAL HISTORY: Right rotator cuff repair, x2, bilateral knee replacements, tubal ligation, surgery for deviated septum, back surgery and some type of lung procedure. FAMILY HISTORY: No history of significant coronary artery disease or cancer. SOCIAL HISTORY: The patient is a nonsmoker, nondrug user. She continues to smoke about half pack of cigarettes per day. She is full code, but is unable to identify anyone that she would consider a surrogate decision maker. ALLERGIES: KEFLEX AND MORPHINE. MEDICATIONS: 1. Vitamin D 2000 units daily. 2. Symbicort 80/4.5 one inhalation b.i.d. 3. Levothyroxine 25 mcg daily. 4. Trazodone 150 mg at bedtime. 5. Lamictal 150 mg daily. 6. Cymbalta one p.o. daily. 7. Montelukast 10 mg at bedtime. 8. Cetirizine 10 mg daily. 9. Tessalon p.r.n. 10. Albuterol nebs p.r.n. 11. DuoNeb p.r.n. 12. Mobic 15 mg daily. 13. Tramadol 50 mg q.6 p.r.n. PHYSICAL EXAMINATION: VITAL SIGNS: Initial vitals; BP 151/118 with pulse 125. Most recent BP 127/92, pulse 110, O2 saturation 97% on 35% oxygen with BiPAP. GENERAL APPEARANCE: Age-appropriate female. She is very slightly sleepy on wearing BiPAP, setting at 45 degree angle in the ER [facility]. She is in awake and seen to be fully conversant. HEENT: PERRL. She has no OP lesions. Slightly dry oral mucosa. NECK: Supple and symmetric with no lymphadenopathy, JVD, or carotid bruits. HEART: Regular, tachycardic. No murmurs. LUNGS: Diminished breath sounds throughout, but significant rales and no wheezing heard throughout all lung cabrera. ABDOMEN: Soft, nontender, and nondistended. Positive bowel sounds. No masses. No organomegaly. EXTREMITIES: No cyanosis, clubbing, or edema. NEUROLOGICAL: The patient appears to have some slight choreiform type movements, which is a fairly subtle. Otherwise, no focal deficits. She appears to be cognitively intact. PSYCH: The patient has normal affect and behavior. LABORATORY DATA: White count 7.1, hemoglobin 15.1, platelets 227. Sodium 142, potassium 4.5, chloride 108, CO2 of 25, BUN 12, creatinine 0.65, glucose 144, calcium 9.2. LFTs normal. BNP 81.4. Troponin less than 0.01. Chest x-ray is negative. Blood gas; pH 7.26, pCO2 58, pO2 of 61. IMPRESSION AND PLAN: 1. Chronic obstructive pulmonary disease exacerbation with some slight CO2 retention and respiratory alkalosis. The patient is currently on BiPAP, which we will continue. Give IV steroids. Continue nebulizer treatments. 2. Bronchitis associated with chronic obstructive pulmonary disease exacerbation. The patient has a history of chronic bronchitis. We will add some Levaquin. She was treated with azithromycin one month ago. 3. History of anxiety. We will continue with her home medications including the trazodone and Lamictal. 4. Hypothyroidism. Continue with the levothyroxine at her home dose. 5. Disposition. The patient will likely take a couple of days in the hospital to make her inpatient in the ICU. Consult Pulmonary Critical Care. We will get Palliative Care to see the patient in order to help her establish any advance care planning needs given that she cannot identify a surrogate decision maker. Job ID: [id number]
[2018-08-26] MEDS: Lorazepam 2 MG/ML VIAL SLOW IVP PRN ×2 (03:36→09:26)
[2018-08-26] MEDS: Levothyroxine Sodium 25 MCG TAB PO SCH (05:37)
[2018-08-26] MEDS: methylPREDNISolone Sod Succ 40 MG VIAL IVP SCH ×4 (05:38→23:22)
[2018-08-26 05:40] LABS: Anion Gap 12 mmol/L (10-20); BUN (Urea Nitrogen) 17 mg/dL (9.8-20.1); Calc. Creatinine Clearance 150 mL/min (70-130); Calcium 9.6 mg/dL (7.8-10.44); Carbon Dioxide 26 mmol/L (22-29); Chloride 106 mmol/L (98-107); Estimated GFR-MDRD Greater than 90; Glucose 143 mg/dL (70-105); Potassium 4.1 mmol/L (3.5-5.1); Sodium 140 mmol/L (136-145)
[2018-08-26 05:44] LABS: #Lymphocytes 0.5 thou/uL (1.20-3.40); #Neutrophils 8.9 thou/uL (1.40-6.50); %Basophils 0.1 % (0.0-1.0); %Lymphocytes 5.2 % (21.0-51.0); %Monocytes 0.4 % (0.0-10.0); %Neutrophils 94.3 % (42.0-75.0); Hemoglobin 14.2 g/dL (12.0-16.0); Mean Corpuscular HGB CONC 31.3 g/dL (32.0-36.0); Mean Corpuscular Hemoglobin 31.1 pg (27.0-31.0); Mean Corpuscular Volume 99.2 fL (78.0-98.0); Mean Platelet Volume 7.7 fL (7.4-10.4); Platelet Count 192 thou/uL (130-400); RBC Distribution Width 12.9 % (11.5-14.5); Red Blood Cell (RBC) Count 4.56 mill/uL (4.20-5.40); White Blood Cell (WBC) Count 9.5 thou/uL (4.8-10.8)
[2018-08-26] MEDS: Famotidine 20 MG TAB PO SCH ×2 (08:37→21:00)
[2018-08-26] MEDS: Enoxaparin Sodium 40 MG/0.4 ML SYRINGE SC SCH (08:37)
[2018-08-26] MEDS: lamoTRIgine 100 MG TAB PO SCH (08:38)
[2018-08-26] MEDS: Acetaminophen 325 MG TAB PO PRN (08:38)
[2018-08-26] MEDS ORDERED: DULoxetine 30 MG CAP PO SCH (09:00)
--- NOTE | 2018-08-26 11:17 | PDOC.PN ---
- Subjective Encounter Start Date: 08/26/18 Encounter Start Time: 10:15 -: old records requested/rev this morning pt was kept off bipap for her breakfast, when i saw at that time she was wheezing, was in mild respi distress, has cough - Objective Resuscitation Status - Order Detail: 08/25/18 16:47 Resuscitation Status Routine Resuscitation Status: FULL: Full Resuscitation MAR Reviewed: Yes Vital Signs & Weight: Vital Signs (12 hours) Temp Pulse Resp Pulse Ox 08/26/18 11:15 97.5 F L 08/26/18 08:00 99 08/26/18 07:30 96.5 F L 08/26/18 07:24 99 17 99 08/26/18 07:23 100 17 99 08/26/18 04:00 98.0 F 08/26/18 02:22 91 18 100 08/26/18 00:00 97.1 F L Weight Weight 199 lb 14.4 oz Most Recent Monitor Data Heart Rate from ECG 97 NIBP 114/79 NIBP BP-Mean 90 Respiration from ECG 16 SpO2 100 Result Diagrams: 08/26/18 04:35 08/26/18 04:35 Radiology Reviewed by me: Yes EKG Reviewed by me: Yes (nsr) Phys Exam - Physical Examination respi distress HEENT: PERRLA, moist MMs, sclera anicteric Neck: no JVD, supple Respiratory: no rales, wheezing present Cardiovascular: RRR, no significant murmur, no rub Gastrointestinal: soft, non-tender, no distention, positive bowel sounds obesity+ Musculoskeletal: no edema, pulses present Neurological: non-focal, normal sensation, moves all 4 limbs Lymphatic: no nodes Psychiatric: normal affect Deviation from normal: anxious Skin: no rash, normal turgor Dx/Plan (1) Acute on chronic respiratory failure with hypoxia and hypercapnia Code(s): J96.21 - ACUTE AND CHRONIC RESPIRATORY FAILURE WITH HYPOXIA; J96.22 - ACUTE AND CHRONIC RESPIRATORY FAILURE WITH HYPERCAPNIA Status: Acute (2) COPD with acute exacerbation Code(s): J44.1 - CHRONIC OBSTRUCTIVE PULMONARY DISEASE W (ACUTE) EXACERBATION Status: Acute Comment: (3) Anxiety and depression Code(s): F41.9 - ANXIETY DISORDER, UNSPECIFIED; F32.9 - MAJOR DEPRESSIVE DISORDER, SINGLE EPISODE, UNSPECIFIED Status: Chronic (4) Bipolar disorder Code(s): F31.9 - BIPOLAR DISORDER, UNSPECIFIED Status: Chronic (5) Hypothyroidism Code(s): E03.9 - HYPOTHYROIDISM, UNSPECIFIED Status: Chronic (6) Obesity (BMI 30-39.9) Code(s): E66.9 - OBESITY, UNSPECIFIED Status: Chronic (7) Tobacco abuse Code(s): Z72.0 - TOBACCO USE Status: Chronic Comment: Tobacco cessation resources - Plan cont current plan of care, continue antibiotics, respiratory therapy * continue solumedrol, duoneb, IV levaquin * add mucinex * Bipap as tolerated * pulmonary has been on case * medication reviewed as below * symptomatic treatment * will closely monitor. Review of Systems - Review of Systems Eyes: negative: Pain, Vision Change, Conjunctivae Inflammation, Eyelid Inflammation, Redness, Other ENT: negative: Ear Pain, Ear Discharge, Nose Pain, Nose Discharge, Nose Congestion, Mouth Pain, Mouth Swelling, Throat Pain, Throat Swelling, Other Respiratory: Cough, Shortness of Breath, SOB with Excertion, Wheezing. negative : Dry, Hemoptysis, Pleuritic Pain, Sputum Cardiovascular: negative: chest pain, palpitations, orthopnea, paroxysmal nocturnal dyspnea, edema, light headedness, other Gastrointestinal: negative: Nausea, Vomiting, Abdominal Pain, Diarrhea, Constipation, Melena, Hematochezia, Other Genitourinary: negative: Dysuria, Frequency, Incontinence, Hematuria, Retention , Other Musculoskeletal: negative: Neck Pain, Shoulder Pain, Arm Pain, Back Pain, Hand Pain, Leg Pain, Foot Pain, Other - Medications/Allergies Allergies/Adverse Reactions: Allergies Allergy/AdvReac Type Severity Reaction Status Date / Time morphine Allergy Mild Hives Verified 07/30/18 13:54 cephalexin Allergy Verified 07/30/18 13:54 Medications: Current Medications Acetaminophen (Tylenol) 650 mg PO Q4H PRN PRN Reason: Headache/Fever/Mild Pain (1-3) Last Admin: 08/26/18 08:38 Dose: 650 mg Albuterol/Ipratropium (Duoneb) 3 ml NEB [id number] [id number] Last Admin: 08/26/18 07:23 Dose: 3 ml Albuterol/Ipratropium (Duoneb) 3 ml NEB [id number] PRN PRN Reason: SOB &/or Wheezing Duloxetine HCl (Cymbalta) 30 mg PO DAILY [facility] Last Admin: 08/26/18 08:37 Dose: 30 mg Enoxaparin Sodium (Lovenox) 40 mg SC 0900 [facility] Last Admin: 08/26/18 08:37 Dose: 40 mg Famotidine (Pepcid) 20 mg PO BID [facility] Last Admin: 08/26/18 08:37 Dose: 20 mg Levofloxacin 750 mg/ Device 150 mls @ 100 mls/hr IVPB Q24HR [facility] Last Admin: 08/25/18 20:53 Dose: 150 mls Lamotrigine (Lamictal) 150 mg PO DAILY [facility] Last Admin: 08/26/18 08:38 Dose: 150 mg Levothyroxine Sodium (Synthroid) 25 mcg PO 0600 [facility] Last Admin: 08/26/18 05:37 Dose: Not Given Lorazepam (Ativan) 0.5 mg SLOW IVP Q6H PRN PRN Reason: Anxiety/Agitation Last Admin: 08/26/18 09:26 Dose: 0.5 mg Methylprednisolone Sodium Succinate (Solu-Medrol) 40 mg IVP Q6HR [facility] Last Admin: 08/26/18 05:38 Dose: 40 mg Sodium Chloride (Flush - Normal Saline) 10 ml IVF Q12HR [facility] Last Admin: 08/26/18 08:38 Dose: 10 ml Sodium Chloride (Flush - Normal Saline) 10 ml IVF PRN PRN PRN Reason: Saline Flush Last Admin: 08/26/18 09:27 Dose: 10 ml Tramadol HCl (Ultram) 50 mg PO Q6H PRN PRN Reason: Pain 4-6 Trazodone HCl (Desyrel) 150 mg PO HS [facility] Last Admin: 08/25/18 20:54 Dose: Not Given
[2018-08-26] MEDS ORDERED: Diabetic Tussin 200 MG/10 ML UDCUP PO PRN (11:58)
[2018-08-26] MEDS ORDERED: hydrALAZINE 20 MG/ML VIAL SLOW IVP PRN (11:58)
[2018-08-26] MEDS ORDERED: Calcium Carbonate 500 MG ChewTAB PO PRN (11:58)
[2018-08-26] MEDS ORDERED: Loperamide HCl 2 MG CAP PO PRN (11:58)
[2018-08-26] MEDS ORDERED: Zolpidem Tartrate 5 MG TAB PO PRN (11:58)
[2018-08-26] MEDS ORDERED: Artificial Tears 18 DROP/0.9 ML EA EYE PRN (11:58)
[2018-08-26] MEDS ORDERED: Sodium Chloride 0.65% Nasal 44 ML BOT EA NARE PRN (11:58)
[2018-08-26] MEDS ORDERED: Ondansetron ODT 4 MG TAB PO PRN (12:30)
[2018-08-26] MEDS ORDERED: Bisacodyl 10 MG SUPP PR PRN (12:30)
[2018-08-26] MEDS ORDERED: Loratadine 10 MG TAB PO PRN (12:30)
[2018-08-26] MEDS ORDERED: Ondansetron PF 4 MG/2 ML Vial IVP PRN (12:30)
[2018-08-26] MEDS ORDERED: Cepastat Lozenges 1 LOZ PO PRN (12:30)
[2018-08-26] MEDS: ALPRAZolam 0.25 MG TAB PO PRN (12:44)
--- NOTE | 2018-08-26 16:58 | CON ---
DATE OF CONSULTATION: HISTORY OF PRESENT ILLNESS: Ms. Silva is a 52-year-old female, who has been seen by Dr. Cardona in the past. She has chronic obstructive pulmonary disease. She apparently presented yesterday afternoon with several days of shortness of breath. She was in the hospital on July 30. She just was kept as an observation patient and then discharged home. In the past couple of days, she says she has had increasing shortness of breath. PAST MEDICAL HISTORY: 1. Hypothyroidism. 2. Anxiety. 3. History of paraspinous abscess in the past. 4. History of rotator cuff repair. 5. History of two C-sections. 6. Bilateral knee replacements. 7. History of sinus surgery. 8. History of hospitalization in last November with COPD exacerbation. 9. History of mild obstructive sleep apnea. SOCIAL HISTORY: In the past, she was using methamphetamine. She is a half pack-a-day smoker. FAMILY HISTORY: Negative for lung disease in early age. REVIEW OF SYSTEMS: Otherwise, negative 10-point. When I examined her, she had BiPAP in place. PHYSICAL EXAMINATION: VITAL SIGNS: She is afebrile, heart rate is 98, and blood pressure is 129/81. HEENT: Pupils are equal. Sclerae are anicteric. NECK: Without lymphadenopathy. LUNGS: Remarkable for distant breath sounds. She was not wheezing when I saw her. HEART: Regular rhythm. S1 and S2 are normal. ABDOMEN: Soft and nontender. EXTREMITIES: Without clubbing, cyanosis, or edema. NEURO: Grossly nonfocal. LABORATORY DATA: White count 9.5, hemoglobin 14.2, and platelets 192. Electrolytes were normal. She did not have a drug screen when she came in. She had a drug screen in November last year, it was positive for amphetamine, methamphetamine, benzodiazepines, cannabinoids, and opiates. IMPRESSION AND PLAN: Acute on chronic respiratory failure with hypoxia, requiring noninvasive ventilation. She has clinically improved significantly. Chest x-ray did not show anything suggestive of pneumonia. Blood gas showed a pH of 7.26, CO2 of 57, and pO2 of 60 at 3:30 yesterday afternoon. She appears to be clinically improved. She will try off BiPAP. Continue with frequent nebulized treatments, antibiotics, and steroids. She will remain in the intermediate care unit. TIME SPENT: This is a 70-minute consult, 50% of the time spent on the unit coordinating care. Job ID: [id number]
[2018-08-26] MEDS: Montelukast Sodium 10 mg Tablet PO SCH (21:00)
[2018-08-26] MEDS ORDERED: Senokot S 8.6-50 MG TAB PO PRN (21:00)
[2018-08-26] MEDS: traZODone HCl 150 MG TAB PO SCH (21:00)
[2018-08-26] MEDS: guaiFENesin ER 600 MG TAB PO SCH (21:01)
[2018-08-27] MEDS: ALPRAZolam 0.25 MG TAB PO PRN ×3 (02:53→14:49)
[2018-08-27] MEDS: methylPREDNISolone Sod Succ 40 MG VIAL IVP SCH ×2 (05:56→11:44)
[2018-08-27] MEDS: Levothyroxine Sodium 25 MCG TAB PO SCH (05:56)
[2018-08-27] MEDS: Enoxaparin Sodium 40 MG/0.4 ML SYRINGE SC SCH (08:40)
[2018-08-27] MEDS: Famotidine 20 MG TAB PO SCH (08:40)
[2018-08-27] MEDS: guaiFENesin ER 600 MG TAB PO SCH ×2 (08:40→19:32)
[2018-08-27] MEDS: lamoTRIgine 100 MG TAB PO SCH (08:40)
[2018-08-27] MEDS: Citalopram 10 MG TAB PO SCH (08:41)
--- NOTE | 2018-08-27 11:40 | PDOC.PN ---
- Subjective Encounter Start Date: 08/27/18 Encounter Start Time: 10:00 this morning she is seated in chair, doing well, she did not require BIPAP last night, she is maintaining saturation with nasal cannula - Objective Resuscitation Status - Order Detail: 08/25/18 16:47 Resuscitation Status Routine Resuscitation Status: FULL: Full Resuscitation MAR Reviewed: Yes Vital Signs & Weight: Vital Signs (12 hours) Temp Pulse Resp Pulse Ox 08/27/18 11:06 98.0 F 08/27/18 07:24 100 08/27/18 07:22 99 08/27/18 07:20 88 19 99 08/27/18 07:11 97.6 F 08/27/18 03:57 98.5 F 08/27/18 00:00 98.1 F Weight Weight 201 lb 14.4 oz Most Recent Monitor Data Heart Rate from ECG 88 NIBP 129/83 NIBP BP-Mean 98 Respiration from ECG 20 SpO2 100 I&O: 08/26/18 08/27/18 08/28/18 06:59 06:59 06:59 Intake Total 500 Output Total 650 Balance -150 Result Diagrams: 08/26/18 04:35 08/26/18 04:35 EKG Reviewed by me: Yes (nsr) Phys Exam - Physical Examination Constitutional: NAD HEENT: PERRLA, moist MMs, sclera anicteric Neck: no JVD, supple Respiratory: no wheezing, no rales, no rhonchi reduced air entry Cardiovascular: RRR, no significant murmur, no rub Gastrointestinal: soft, non-tender, no distention, positive bowel sounds Musculoskeletal: no edema, pulses present Neurological: non-focal, normal sensation Lymphatic: no nodes Psychiatric: normal affect, A&O x 3 Skin: no rash, normal turgor Dx/Plan (1) Acute on chronic respiratory failure with hypoxia and hypercapnia Code(s): J96.21 - ACUTE AND CHRONIC RESPIRATORY FAILURE WITH HYPOXIA; J96.22 - ACUTE AND CHRONIC RESPIRATORY FAILURE WITH HYPERCAPNIA Status: Acute (2) COPD with acute exacerbation Code(s): J44.1 - CHRONIC OBSTRUCTIVE PULMONARY DISEASE W (ACUTE) EXACERBATION Status: Acute Comment: (3) Anxiety and depression Code(s): F41.9 - ANXIETY DISORDER, UNSPECIFIED; F32.9 - MAJOR DEPRESSIVE DISORDER, SINGLE EPISODE, UNSPECIFIED Status: Chronic (4) Bipolar disorder Code(s): F31.9 - BIPOLAR DISORDER, UNSPECIFIED Status: Chronic (5) Hypothyroidism Code(s): E03.9 - HYPOTHYROIDISM, UNSPECIFIED Status: Chronic (6) Obesity (BMI 30-39.9) Code(s): E66.9 - OBESITY, UNSPECIFIED Status: Chronic (7) Tobacco abuse Code(s): Z72.0 - TOBACCO USE Status: Chronic Comment: Tobacco cessation resources - Plan cont current plan of care, continue antibiotics, respiratory therapy * she is improving to her baseline * if pulmonary OK, will consider transfer to medical floor * Medication reviewed as below * symptomatic treatment * continue current optimum medical therapy for COPD * pulmonary recommendation appreciated. Review of Systems - Review of Systems Respiratory: SOB with Excertion. negative: Cough, Dry, Shortness of Breath, Hemoptysis, Pleuritic Pain, Sputum, Wheezing Cardiovascular: negative: chest pain, palpitations, orthopnea, paroxysmal nocturnal dyspnea, edema, light headedness, other Gastrointestinal: negative: Nausea, Vomiting, Abdominal Pain, Diarrhea, Constipation, Melena, Hematochezia, Other Genitourinary: negative: Dysuria, Frequency, Incontinence, Hematuria, Retention , Other Musculoskeletal: negative: Neck Pain, Shoulder Pain, Arm Pain, Back Pain, Hand Pain, Leg Pain, Foot Pain, Other Skin: negative: Rash, Lesions, Erik, Bruising, Other - Medications/Allergies Allergies/Adverse Reactions: Allergies Allergy/AdvReac Type Severity Reaction Status Date / Time morphine Allergy Mild Hives Verified 07/30/18 13:54 cephalexin Allergy Verified 07/30/18 13:54 Medications: Current Medications Acetaminophen (Tylenol) 650 mg PO Q4H PRN PRN Reason: Headache/Fever/Mild Pain (1-3) Last Admin: 08/26/18 08:38 Dose: 650 mg Albuterol/Ipratropium (Duoneb) 3 ml NEB [id number] MONTSE Last Admin: 08/27/18 07:20 Dose: 3 ml Albuterol/Ipratropium (Duoneb) 3 ml NEB [id number] PRN PRN Reason: SOB &/or Wheezing Alprazolam (Xanax) 0.25 mg PO QIDPRN PRN PRN Reason: Anxiety Last Admin: 08/27/18 08:44 Dose: 0.25 mg Artificial Tears (Tears Naturale) 2 drop EA EYE PRN PRN PRN Reason: Dry Eyes Bisacodyl (Dulcolax) 10 mg SD DAILYPRN PRN PRN Reason: Constipation Calcium Carbonate (Tums) 1,000 mg PO Q4H PRN PRN Reason: Heartburn or Indigestion Citalopram Hydrobromide (Celexa) 10 mg PO DAILY [facility] Last Admin: 08/27/18 08:41 Dose: 10 mg Enoxaparin Sodium (Lovenox) 40 mg SC 0900 [facility] Last Admin: 08/27/18 08:40 Dose: 40 mg Famotidine (Pepcid) 20 mg PO BID [facility] Last Admin: 08/27/18 08:40 Dose: 20 mg Guaifenesin (Mucinex) 600 mg PO Q12HR [facility] Last Admin: 08/27/18 08:40 Dose: 600 mg Guaifenesin (Robitussin Sf) 200 mg PO Q4H PRN PRN Reason: Cough Hydralazine HCl (Apresoline) 10 mg SLOW IVP Q4H PRN PRN Reason: SBP > 180 and HR < 70 Levofloxacin 750 mg/ Device 150 mls @ 100 mls/hr IVPB Q24HR [facility] Last Admin: 08/26/18 17:14 Dose: 150 mls Lamotrigine (Lamictal) 150 mg PO DAILY [facility] Last Admin: 08/27/18 08:40 Dose: 150 mg Levothyroxine Sodium (Synthroid) 25 mcg PO 0600 [facility] Last Admin: 08/27/18 05:56 Dose: 25 mcg Loperamide HCl (Imodium) 2 mg PO PRN PRN PRN Reason: Diarrhea/Loose Stools Loratadine (Claritin) 10 mg PO DAILYPRN PRN PRN Reason: Sinus Symptoms Methylprednisolone Sodium Succinate (Solu-Medrol) 40 mg IVP Q6HR [facility] Last Admin: 08/27/18 05:56 Dose: 40 mg Montelukast Sodium (Singulair) 10 mg PO HS [facility] Last Admin: 08/26/18 21:00 Dose: 10 mg Ondansetron HCl (Zofran Odt) 4 mg PO Q6H PRN PRN Reason: Nausea/Vomiting Ondansetron HCl (Zofran) 4 mg IVP Q6H PRN PRN Reason: Nausea/Vomiting Senna/Docusate Sodium (Senokot S) 2 tab PO BID PRN PRN Reason: Constipation Sodium Chloride (Flush - Normal Saline) 10 ml IVF Q12HR [facility] Last Admin: 08/27/18 08:41 Dose: 10 ml Sodium Chloride (Flush - Normal Saline) 10 ml IVF PRN PRN PRN Reason: Saline Flush Last Admin: 08/26/18 17:15 Dose: 10 ml Sodium Chloride ([place] Nasal [place] 0.65%) 0 ml EA NARE QIDPRN PRN PRN Reason: Nasal Congestion Throat Lozenges (Cepastat Lozenges) 1 matilda PO Q2H PRN PRN Reason: Sore Throat Tramadol HCl (Ultram) 50 mg PO Q6H PRN PRN Reason: Pain 4-6 Trazodone HCl (Desyrel) 150 mg PO HS [facility] Last Admin: 08/26/18 21:00 Dose: 150 mg
--- NOTE | 2018-08-27 13:46 | PRG ---
DATE OF SERVICE: 08/27/2018 SERVICE: Pulmonary Medicine. INTERVAL HISTORY: The patient is doing outstanding from Respiratory standpoint. She is breathing comfortably. She is coughing a little bit and bringing up some white phlegm. That being said, she feels much improved compared to presentation. 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 PHYSICAL EXAMINATION: VITAL SIGNS: Pulse 96, blood pressure 131/80, respirations 15, and saturation is 98% on 2 L nasal cannula. GENERAL: The patient is awake and alert, in no apparent distress. LUNGS: Decent air entry. There is a prolonged expiratory phase with rhonchi and wheezing both present. No crackles. HEART: Normal rate and regular. ABDOMEN: Soft, nontender, and nondistended. Bowel sounds are positive. MUSCULOSKELETAL: No cyanosis or clubbing. No pitting in the bilateral lower extremities. NEUROLOGIC: Grossly nonfocal. LABORATORY DATA: WBC 9.5, hemoglobin 14.1, and platelets 191,000. The pH 7.26, pCO2 of 58, and PO2 of 61, corresponding to a saturation of 89%. Basic metabolic profile, liver function studies, troponin, and BNP are otherwise unremarkable. ASSESSMENT: 1. Acute on chronic hypoxic and hypercapnic respiratory failure. 2. Chronic obstructive pulmonary disease with acute exacerbation. 3. Obstructive sleep apnea, previously noncompliant with CPAP therapy. 4. Asthma, moderate persistent. DISCUSSION AND PLAN: The patient is doing fine from Respiratory standpoint. We are going to continue the antibiotics, nebulized medications, and steroids. At this point, she is stable for transition out of the IM to the medical unit. Pulmonary/Critical Care will continue to follow along. Job ID: [id number]
[2018-08-27] MEDS: Acetaminophen 325 MG TAB PO PRN (17:29)
[2018-08-27] MEDS: traZODone HCl 150 MG TAB PO SCH (19:32)
[2018-08-27] MEDS: Montelukast Sodium 10 mg Tablet PO SCH (19:32)
[2018-08-28] MEDS: Levothyroxine Sodium 25 MCG TAB PO SCH (05:27)
[2018-08-28] MEDS ORDERED: predniSONE 20 MG TAB PO SCH (08:00)
[2018-08-28] MEDS: guaiFENesin ER 600 MG TAB PO SCH (08:51)
[2018-08-28] MEDS: lamoTRIgine 100 MG TAB PO SCH (08:51)
[2018-08-28] MEDS: ALPRAZolam 0.25 MG TAB PO PRN ×2 (08:51→12:42)
[2018-08-28] MEDS: Citalopram 10 MG TAB PO SCH (08:52)
[2018-08-28] MEDS: Acetaminophen 325 MG TAB PO PRN (08:52)
[2018-08-28] MEDS: Enoxaparin Sodium 40 MG/0.4 ML SYRINGE SC SCH (10:37)
[2018-08-28 12:25] VITALS: BP 122/79; TEMP 98.5
--- NOTE | 2018-08-28 12:40 | PRG ---
DATE OF SERVICE: 08/28/2018 SERVICE: Pulmonary Medicine. INTERVAL HISTORY: The patient is doing fine from respiratory standpoint. Breathing comfortably. Denies any current chest pain, fevers, cough, nausea, or vomiting. Otherwise, her respiratory issues have resolved, she is back to breathing at baseline. She notes having a little bit of nausea yesterday, but is clear today. PHYSICAL EXAMINATION: VITAL SIGNS: Afebrile, pulse 90, blood pressure 107/69, respirations 18, and saturation 94% on room air. GENERAL: The patient is awake and alert, in no apparent distress. LUNGS: Much improved air entry. Slightly prolonged expiratory phase. At the end of expiration, very fine polyphonic wheezing is present. There are no rhonchi or crackles appreciated. HEART: Normal rate and regular. ABDOMEN: Soft, nontender, and nondistended. Bowel sounds are positive. MUSCULOSKELETAL: No cyanosis or clubbing. No pitting in the bilateral lower extremities. NEUROLOGIC: Grossly nonfocal. ASSESSMENT: 1. Acute on chronic hypoxic and hypercapnic respiratory failure. 2. Chronic obstructive pulmonary disease with acute exacerbation, improving. 3. Asthma, moderate persistent. 4. Obstructive sleep apnea, previously noncompliant with CPAP therapy. DISCUSSION AND PLAN: The patient is stable for transition out of the hospital. She can be put on a 7-day course of steroids and a 5-day course of antibiotics. Pulmonary will continue to follow if she remains in-house, but from a purely respiratory standpoint, she can be considered for discharge home. Job ID: [id number]
--- NOTE | 2018-08-28 13:59 | DIS ---
DATE OF ADMISSION: 08/25/2018 DATE OF DISCHARGE: 08/28/2018 PRIMARY CARE PHYSICIAN: Yany Call admission. DISCHARGE DISPOSITION: Home. PRIMARY DISCHARGE DIAGNOSES: 1. Acute on chronic respiratory failure with hypoxia and hypercapnia. 2. Chronic obstructive pulmonary disease with acute exacerbation. SECONDARY DISCHARGE DIAGNOSES: Tobacco abuse disorder, obesity with BMI 36, hypothyroidism, bipolar disorder, anxiety and depression, chronic obstructive pulmonary disease, and chronic respiratory failure with hypoxia and hypercapnia, on home oxygen therapy. PRIMARY PROCEDURE/OPERATION: None. RADIOLOGICAL INVESTIGATION: Chest x-ray on admission did not show any acute process. SIGNIFICANT LABORATORY DATA: WBC 9.5, hemoglobin 14.2, and platelets 192. ABG, pCO2 of 57.8, pH 7.26, O2 of 60.9. Sodium 140, potassium 4.1, BUN 17, and creatinine 0.62. LFT normal. DISCHARGE MEDICATIONS: 1. Celexa 10 mg p.o. daily. 2. Advair inhalation b.i.d. 3. Lamictal 150 mg daily. 4. Levothyroxine 25 mcg p.o. daily. 5. Mobic 15 mg p.o. daily. 6. Singulair 10 mg p.o. q.h.s. 7. Trazodone 150 mg p.o. at bedtime. 8. DuoNeb q.6 hourly. 9. Ventolin nebulization q.6 hourly p.r.n. 10. ProAir HFA 2 puffs q.6 hourly p.r.n. 11. Mucinex 600 mg two tablets twice daily. 12. Tylenol 650 mg q.4 hourly p.r.n. 13. Levaquin 750 mg p.o. daily for 5 days. 14. Prednisone 40 mg p.o. daily for 5 days, then 20 mg p.o. daily for 5 days, then 10 mg p.o. daily for 5 days, then stop. CONTRAINDICATION: None. CODE STATUS: Full code. 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 TEST RESULT PENDING ON DISCHARGE: None. ALLERGIES: MORPHINE AND KEFLEX. DISCHARGE PLAN: Post hospital, the patient will follow up with primary physician on August 30, 2018, at 2 p.m. The patient will follow up with Dr. Cardona as instructed. HOSPITAL COURSE: A 52-year-old female with above-mentioned medical problem, who was admitted by Dr. Deal. Please see his H and P for further details. The patient was having acute respiratory failure with hypoxia and hypercapnia from COPD exacerbation. Her chest x-ray was unremarkable. In the emergency room, she required BiPAP. She required IMCU admission. She was evaluated by Pulmonary and Critical Care group. She was super-anxious while in hospital, required intermittent use of Xanax. The patient's condition significantly improved, and she was no longer requiring BiPAP. At that point, we transferred her to medical floor. The patient did very well without any BiPAP or without any oxygen, and her oxygen was also much improved. Pulmonary and Critical Care group cleared her for discharge. Overall, the patient is doing much better. The patient is medically stable. I have seen and examined the patient at bedside today. PHYSICAL EXAMINATION: VITAL SIGNS: Currently, temperature 98.5, pulse 90, respiratory rate 18, saturation 94% on room air, blood pressure 122/79. Weight was 201 pounds. GENERAL: The patient is currently alert and awake, no obvious acute distress. HEENT: Head, normocephalic and atraumatic. LUNGS: Clear to auscultation without any rhonchi or rales. CARDIAC: S1 and S2, regular without any murmur. ABDOMEN: Soft and benign without any tenderness. EXTREMITIES: No edema. NEUROLOGIC: Nonfocal examination. Overall, the patient is medically stable for discharge today. On discharge, we have prescribed tapering doses of prednisone and antibiotic therapy, and Pulmonary also cleared her for discharge. Job ID: [id number]
== END 2018-08-28 14:46 | disposition home or self-care (01) | DRG 189 ==
LOC: ERS 14:27 → IMCU/EMU 19:52 → T4-A 08-27 15:47
PROVIDERS: ADMIT Internal Medicine; ATTEND Internal Medicine
PROC: 5A09457 Assistance with Respiratory Ventilation, 24-96 Consecutive Hours, Continuous Positive Airway Pressure (ICD-10-PCS; principal; 2018-08-25)
DX: J96.21 Acute and chronic respiratory failure with hypoxia (principal); J44.1 Chronic obstructive pulmonary disease with (acute) exacerbation; J96.22 Acute and chronic respiratory failure with hypercapnia; F41.9 Anxiety disorder, unspecified; E03.9 Hypothyroidism, unspecified; F17.210 Nicotine dependence, cigarettes, uncomplicated; E66.9 Obesity, unspecified; G47.33 Obstructive sleep apnea (adult) (pediatric); J45.40 Moderate persistent asthma, uncomplicated; F31.9 Bipolar disorder, unspecified; Z79.899 Other long term (current) drug therapy; Z91.19 Patient's noncompliance with other medical treatment and regimen; Z68.36 Body mass index [BMI] 36.0-36.9, adult; Z79.51 Long term (current) use of inhaled steroids; Z88.5 Allergy status to narcotic agent; Z99.81 Dependence on supplemental oxygen; Z88.1 Allergy status to other antibiotic agents
CPT/HCPCS: 36415; 71045; 80048; 80053; 82805; 83880; 84484; 85025; 93005; 94760; 96374; J1650; J1956; J2060; J2920; J7512; J7620

== ENCOUNTER 2018-11-19 06:35 | Observation (INO) | payer OTHER ==
[2018-11-19 07:15] LABS: #Basophils 0.1 thou/uL (0.0-0.2); #Eosinphils 0.4 thou/uL (0.0-0.7); #Lymphocytes 1.5 thou/uL (1.20-3.40); #Monocytes 0.5 thou/uL (0.11-0.59); #Neutrophils 6.7 thou/uL (1.40-6.50); %Basophils 0.7 % (0.0-1.0); %Lymphocytes 16.2 % (21.0-51.0); %Monocytes 5.3 % (0.0-10.0); %Neutrophils 73.8 % (42.0-75.0); Hemoglobin 14.4 g/dL (12.0-16.0); Mean Corpuscular HGB CONC 31.5 g/dL (32.0-36.0); Mean Corpuscular Hemoglobin 30.6 pg (27.0-31.0); Mean Corpuscular Volume 97.2 fL (78.0-98.0); Mean Platelet Volume 7.6 fL (7.4-10.4); Platelet Count 171 thou/uL (130-400); RBC Distribution Width 12.9 % (11.5-14.5); White Blood Cell (WBC) Count 9.1 thou/uL (4.8-10.8)
[2018-11-19] MEDS ORDERED: methylPREDNISolone Sod Succ/PF 125 MG/2 ML VIAL ONE (07:20)
[2018-11-19] MEDS ORDERED: Magnesium 2 GM/50 ML BAG (IN WATER) ONE (07:20)
[2018-11-19 07:36] LABS: ALT (SGPT) 21 U/L (8-55); AST (SGOT) 18 U/L (5-34); Albumin 4.2 g/dL (3.5-5.0); Alkaline Phosphatase 113 U/L (40-150); Anion Gap 15 mmol/L (10-20); BUN (Urea Nitrogen) 24 mg/dL (9.8-20.1); Bilirubin, Total 0.3 mg/dL (0.2-1.2); Calc. Creatinine Clearance 0 mL/min (70-130); Calcium 9.6 mg/dL (7.8-10.44); Carbon Dioxide 24 mmol/L (22-29); Chloride 107 mmol/L (98-107); Estimated GFR-MDRD 86; Globulin 2.3 g/dL (2.4-3.5); Glucose 117 mg/dL (70-105); Potassium 4.3 mmol/L (3.5-5.1); Protein, Total 6.5 g/dL (6.0-8.3); Sodium 142 mmol/L (136-145)
[2018-11-19] MEDS ORDERED: Ibuprofen 800 MG TAB ONE (08:23)
[2018-11-19] MEDS ORDERED: Acetaminophen 500 MG TAB ONE (08:23)
[2018-11-19] MEDS ORDERED: Lorazepam 1 MG TAB ONE (08:23)
--- NOTE | 2018-11-19 08:39 | RAD ---
CHEST ONE VIEW: HISTORY: Dyspnea. COMPARISON: 10/28/2018 FINDINGS: Normal cardiac silhouette. The pulmonary vessels and hilum are normal. The costophrenic angles are clear. No masses or consolidation. No pneumothorax or osseous abnormalities. Lumbar fusion hardware is noted. IMPRESSION: No acute cardiopulmonary process. POS: OFF
[2018-11-19] MEDS ORDERED: Lorazepam 2 MG/ML VIAL ONE (12:43)
[2018-11-19] MEDS ORDERED: Acetaminophen 325 MG TAB PO PRN (13:38)
[2018-11-19] MEDS ORDERED: Albuterol Sulfate 2.5 mg/3 ml Neb NEB PRN (13:44)
[2018-11-19 14:00] VITALS: BMI 39.0
[2018-11-19] MEDS ORDERED: Azithromycin 250 MG TAB PO SCH (14:00)
--- NOTE | 2018-11-19 14:33 | PDOC.FPRHP ---
- History of Present Illness Chief Complaint: SOB, cough History of Present Illness: Patient is a 53F with a PMHx of asthma, COPD, and hypothyroidism presenting today with COPD exacerbation. Patient was somnolent throughout the exam and was a poor historian. Patient reports that since yesterday she has been coughing with increased sputum production, occasional hemoptysis, and feeling SOB. She also endorses feeling warm but did not take her temperature. She states that her daughter has been sick within the last few days with a "head cold." Patient reportedly uses 2L of O2 at home, only at night. Denies cp, vomiting, diarrhea. Was recently on obs at the beginning of this month for similar symptoms, monitored overnight with duonebs, oxygen, started on prednisone and azithromycin. Reportedly planned to quit smoking on November 25, but has not smoked any cigarettes today so her quit day is now today. ED Course: Received 2 courses duonebs, 125mcg methylprednisolone, mag sulfate, NS x 1L, lorazepam, ativan, motrin, acetaminophen. - Allergies/Adverse Reactions Allergies Allergy/AdvReac Type Severity Reaction Status Date / Time morphine Allergy Mild Hives Verified 11/19/18 13:57 cephalexin Allergy Verified 11/19/18 13:57 - Home Medications Medication Instructions Recorded Confirmed Type Levothyroxine Sodium [Levoxyl] 25 mcg PO DAILY 04/04/17 11/19/18 History traZODone HCl [Trazodone HCl] 150 mg PO HS 04/04/17 11/19/18 History Montelukast Sodium 10 mg PO HS 03/17/18 11/19/18 History lamoTRIgine [LaMICtal] 150 mg PO DAILY 03/17/18 11/19/18 History ALButerol Sulfate [Ventolin Neb] 3 ml NEB Q6HR PRN #100 neb 03/19/18 11/19/18 Rx Acetaminophen [Tylenol Regular 650 mg PO Q4H PRN tab 03/19/18 11/19/18 Rx Strength] guaiFENesin/DM ER [Mucinex DM] 2 tab PO Q12HR #14 tab 03/19/18 11/19/18 Rx Albuterol Sulfate [Proair HFA] 2 puff INH Q6HR PRN #1 [id number] 07/30/18 Rx Ipratropium/Albuterol Sulfate 3 ml NEB [id number] PRN #90 neb 07/30/18 11/19/18 Rx [DuoNeb] Meloxicam [Mobic] 15 mg PO DAILY 07/30/18 11/19/18 History Citalopram Hydrobromide 10 mg PO DAILY 08/26/18 11/19/18 History [Citalopram HBr] Fluticasone/Salmeterol [Advair 1 inh IH BID 08/26/18 11/19/18 History Diskus 500/50] - History PMHx: Asthma, COPD, anxiety, hypothyroidism PSHx: R rotator cuff, multiple spine surgeries, x2, bilateral knee replacement, tubal ligation, deviated septum repair, lung sx to "scrape off staph." FHx: non-contributory Social: smokes 3 cig/day, occasional etoh use, no drug use - Review of Systems General: reports: fever/chills. denies: weight/appetite/sleep changes Eyes: reports: vision changes. denies: eye pain ENT: denies: nasal congestion Respiratory: reports: cough (with sputum production), shortness of breath Cardiovascular: denies: chest pain, edema Gastrointestinal: denies: nausea, vomiting, diarrhea Genitourinary: denies: incontinence, dysuria Skin: denies: rashes, jaundice Musculoskeletal: denies: pain, swelling Neurological: denies: numbness, seizure Psychological: reports: anxiety - Vital signs BP: [119/79] HR: [86] RR: [17] Tmax: [98.6] Pox: [98]% on [2L] Wt: [90.7kg] - Physical Exam Constitutional: NAD, other (somnolent) HEENT: normocephalic and atraumatic, no scleral icterus Neck: supple, FROM Chest: no-tender to palpation, no lesions Heart: RRR, normal S1/S2 Lungs: no respiratory distress, other (wheezing present bilaterally) Abdomen: soft, non-tender Musculoskeletal: normal structure, normal tone, ROM grossly normal Neurological: no focal deficit, normal sensation Skin: no rash/lesions, good turgor, capillary refill <2 seconds Heme/Lymphatic: no unusual bruising or bleeding, no purpura Psychiatric: intact recent and remote memory FMR H&P: Results - Labs Result Diagrams: 11/19/18 06:54 11/19/18 06:54 Lab results: WBC 9.1 thou/uL (4.8-10.8) 11/19/18 06:54 Hgb 14.4 g/dL (12.0-16.0) 11/19/18 06:54 Hct 45.7 % (36.0-47.0) 11/19/18 06:54 MCV 97.2 fL (78.0-98.0) 11/19/18 06:54 Plt Count 171 thou/uL (130-400) 11/19/18 06:54 Neutrophils % 73.8 % (42.0-75.0) 11/19/18 06:54 Sodium 142 mmol/L (136-145) 11/19/18 06:54 Potassium 4.3 mmol/L (3.5-5.1) 11/19/18 06:54 Chloride 107 mmol/L (98-107) 11/19/18 06:54 Carbon Dioxide 24 mmol/L (22-29) 11/19/18 06:54 BUN 24 mg/dL (9.8-20.1) H 11/19/18 06:54 Creatinine 0.71 mg/dL (0.6-1.1) 11/19/18 06:54 Glucose 117 mg/dL (70-105) H 11/19/18 06:54 Calcium 9.6 mg/dL (7.8-10.44) 11/19/18 06:54 Total Bilirubin 0.3 mg/dL (0.2-1.2) 11/19/18 06:54 AST 18 U/L (5-34) 11/19/18 06:54 ALT 21 U/L (8-55) 11/19/18 06:54 Alkaline Phosphatase 113 U/L (40-150) 11/19/18 06:54 Serum Total Protein 6.5 g/dL (6.0-8.3) 11/19/18 06:54 Albumin 4.2 g/dL (3.5-5.0) 11/19/18 06:54 - EKG Interpretation EKG: Normal sinus rhythm, rate of 82 - Radiology Interpretation Chest x-ray Status: report reviewed by me (No acute cardiopulmonary process) FMR H&P: A/P - Problem List (1) COPD with acute exacerbation Current Visit: No Status: Acute Code(s): J44.1 - CHRONIC OBSTRUCTIVE PULMONARY DISEASE W (ACUTE) EXACERBATION Comment: (2) Anxiety and depression Current Visit: No Status: Chronic Code(s): F41.9 - ANXIETY DISORDER, UNSPECIFIED; F32.9 - MAJOR DEPRESSIVE DISORDER, SINGLE EPISODE, UNSPECIFIED (3) Hypothyroidism Current Visit: No Status: Chronic Code(s): E03.9 - HYPOTHYROIDISM, UNSPECIFIED (4) Obesity (BMI 30-39.9) Current Visit: No Status: Chronic Code(s): E66.9 - OBESITY, UNSPECIFIED (5) Tobacco abuse Current Visit: No Status: Chronic Code(s): Z72.0 - TOBACCO USE Comment: Tobacco cessation resources - Plan Patient is a 53F with PMHx of COPD, asthma, hypothyroidism on obs for COPD exacerbation #COPD exacerbation -CXR: no acute cardiopulmonary process -WBC 9.1 wnl -patient afebrile -received duonebs x2, 125mcg methylprednisolone, mag sulfate in ED -patient O2 Sat 98% on 2L via ventimask s/p 2 duoneb treatments, continued to sound wheezy on exam -supp O2 to keep O2 Sat >88% -begin prednisone 40mg 1930 tonight, continue tomorrow morning -had azithromycin on recent hospitalization, patient is afebrile with wbc wnl, will defer for now -duonebs scheduled q4h, albuterol q2h prn -monitor overnight #Tobacco abuse -smokes 3 cigs/day, has not smoked today -was going to quit nov 25, declared today is her new quit day -nicotine patch, smoking cessation counseling #Hypothyroidism -continue home meds Diet: CC DVT: lovenox Code: Full Dispo: obs overnight for copd exacerbation treatment FMR H&P: Upper Level - Pertinent history Ms. Silva presents for cough/wheezing/hemoptysis for the past 2-3 days She is a chronic COPD patient with multiple admissions for similar complaints recently, on 2L at night, on triple inhaler therapy, using her nebulizer without relief. She denies any fever, chest pain, syncope, or focal weakness. - Pertinent findings General: NAD HEENT: NCAT Chest: even inspiratory and expiratory effort, no retractions, diffuse wheezing , no focal consolidation. RRR, S1/S2, no obvious murmur Abdomen: non distended, NTTP MSK: no weakness, or loss of ROM noted Extremities: non-edematous, pulses present Neuro: grossly intact, no focal deficits See management retail intern portion for full ROS, PE, labs and vitals. - Plan Date/Time: 11/19/18 1428 I, Max Alvarez DO, have evaluated this patient and agree with findings/plan as outlined by management retail intern resident. Pertinent changes/additions are listed here. COPD exacerbation - afebrile, VSS. Increased symptomatology recently - maintain o2 saturation at 88% - continue home inhaler. Triple therapy - begin prednisone, taper to 5mg daily for use until seen by Dr. Cardona outpt - procal pending Drug seeking behavior - UDS pending, avoid narcotics/benzos See management retail intern portion for mgmt. of chronic problems Dispo: admit to medical floor for supportive care
[2018-11-19 17:33] LABS: Amphetamine Not Detected (NotDetected); Barbiturates Screen Not Detected (NotDetected); Benzodiazepine Screen Detected (NotDetected); Cocaine Metabolite Screen Not Detected (NotDetected); Medtox Control Line Valid? VALID (VALID); Medtox Reader # READER 4; Methadone Not Detected (NotDetected); Methamphetamine Not Detected (NotDetected); Opiate Screen Not Detected (NotDetected); Oxycodone Screen Not Detected (NotDetected); Phencyclidine (PCP) Not Detected (NotDetected); THC/Cannabinoid Screen Not Detected (NotDetected); Tricyclic Screen Not Detected (NotDetected)
[2018-11-19] MEDS: Mometasone/Formoterol 120 PUFF INHALER INH SCH (18:14)
[2018-11-19] MEDS ORDERED: predniSONE 20 MG TAB PO SCH (19:30)
[2018-11-19] MEDS ORDERED: Montelukast Sodium 10 mg Tablet PO SCH (21:00)
[2018-11-19] MEDS ORDERED: traZODone HCl 150 MG TAB PO SCH (21:00)
[2018-11-19] MEDS ORDERED: Nicotine 14 MG PATCH TD SCH (21:00)
[2018-11-19] MEDS: guaiFENesin/DM ER PO SCH (21:26)
[2018-11-19] MEDS ORDERED: Melatonin 3 MG TAB PO PRN (21:49)
[2018-11-19] MEDS ORDERED: hydrOXYzine 25 MG TAB PO SCH (22:00)
--- NOTE | 2018-11-19 22:36 | PDOC.FM ---
- Subjective Subjective: Residents were called to the room due to patient having anxiety. When I arrived at the room her son was there, but patient was gone. Son stated that the patient had gone out, but was unaware of where she went. Resident left message with nurse to contact when patient returned to room. When patient returned to room she was apparently very adamant that she receive Xanax or Ativan for her anxiety and for sleep. When I went back to the room she was breathing comfortably, sitting still, and talking calmly on the cell phone to an acquaintance of hers. I observed this behavior for a few moments and then re-introduced myself. At that point she began immediately shaking and tachypneic. She reports that she needs the ativan or xanax to sleep. I counseled her on how poor of a medication xanax is to control long standing anxiety and/or sleep. She then reported to me she had a history of overuse and abuse of benzodiazepines. She was then counseled on using better longer acting medications for anxiety for symptom improvement. She also then began to talk about smoking cessation and getting nicotine patches. Patient was instructed that outpatient follow up would be needed for her smoking cessation. In regards to her anxiety and insomnia, I recommended using melatonin and hydroxyzine for symptoms. Patient reports she takes hydroxyzine at home and she reports it works, but doesn't always make her sleep. I advised her that we would like to control her anxiety so that she can get rest and have improvements in her health, but we would like to do it in a more sustainable way. She was agreeable to this plan and will have close outpatient follow up with Dr. Cortez at [facility]. - Objective Vital Signs & Weight: Vital Signs (12 hours) Temp Pulse Resp BP BP Pulse Ox 11/19/18 19:58 98.5 F 106 H 20 149/80 H 93 L 11/19/18 18:14 102 H 28 H 95 11/19/18 18:02 95 26 H 96 11/19/18 13:50 97.7 F 88 24 H 125/87 97 Weight Weight 90.718 kg Result Diagrams: 11/19/18 06:54 11/19/18 06:54
[2018-11-20] MEDS ORDERED: Levothyroxine Sodium 25 MCG TAB PO SCH (06:00)
--- NOTE | 2018-11-20 06:08 | PDOC.FM ---
- Subjective Subjective: Overnight patient reportedly left her room for an undetermined amount of time, then later returned to her room and was talking comfortably on her cell phone without her NC until Dr. Troy was noticed to be in the room. At that time she began to breath heavily and had self-induced increased WOB and anxiety. She was counseled about benzodiazepines, where she revealed that she has a hx of benzodiazepine abuse. This morning patient reports that she feels much better. Denies SOB. States she is still coughing somewhat, but not as much as yesterday, with decreased sputum production. Denies hemoptysis overnight. Patient counseled on trying to quit smoking. Has been satting 92-93% on 3L overnight, was 92% on 2L during evaluation. Trying to wean off oxygen and go home today. - Objective Vital Signs & Weight: Vital Signs (12 hours) Temp Pulse Resp BP Pulse Ox 11/20/18 04:00 98.0 F 105 H 20 94/60 92 L 11/20/18 02:23 93 L 11/20/18 00:00 98.5 F 95 20 116/76 93 L 11/19/18 23:59 85 16 91 L 11/19/18 19:58 98.5 F 106 H 20 149/80 H 93 L 11/19/18 18:14 102 H 28 H 95 Weight Weight 90.718 kg I&O: 11/18/18 11/19/18 11/20/18 06:59 06:59 06:59 Intake Total 500 Balance 500 Result Diagrams: 11/19/18 06:54 11/19/18 06:54 Phys Exam - Physical Examination Constitutional: NAD HEENT: moist MMs, sclera anicteric Neck: supple, full ROM Wheezing throughout the lung cabrera Cardiovascular: RRR, no significant murmur Gastrointestinal: soft, non-tender Musculoskeletal: no edema Neurological: non-focal, moves all 4 limbs Lymphatic: no nodes Psychiatric: normal affect, A&O x 3 Skin: normal turgor, cap refill <2 seconds Dx/Plan (1) COPD with acute exacerbation Code(s): J44.1 - CHRONIC OBSTRUCTIVE PULMONARY DISEASE W (ACUTE) EXACERBATION Status: Acute (2) Anxiety and depression Code(s): F41.9 - ANXIETY DISORDER, UNSPECIFIED; F32.9 - MAJOR DEPRESSIVE DISORDER, SINGLE EPISODE, UNSPECIFIED Status: Chronic (3) Hypothyroidism Code(s): E03.9 - HYPOTHYROIDISM, UNSPECIFIED Status: Chronic (4) Obesity (BMI 30-39.9) Code(s): E66.9 - OBESITY, UNSPECIFIED Status: Chronic (5) Tobacco abuse Code(s): Z72.0 - TOBACCO USE Status: Chronic - Plan Plan: Patient is a 53F with PMHx of COPD, asthma, hypothyroidism on obs for COPD exacerbation #COPD exacerbation -CXR: no acute cardiopulmonary process -WBC 9.1 wnl -patient afebrile -received duonebs x2, 125mcg methylprednisolone, mag sulfate in ED -patient O2 Sat 98% on 2L via ventimask s/p 2 duoneb treatments, continued to sound wheezy on exam -supp O2 to keep O2 Sat >88% -begin prednisone 40mg 1930 tonight, continue tomorrow morning -had azithromycin on recent hospitalization, patient is afebrile with wbc wnl, will defer for now -duonebs scheduled q4h, albuterol q2h prn -overnight patient reportedly did will with no acute exacerbations, though reportedly demanded ativan for anxiety; she later revealed that she has a history of benzo abuse -continue to wean off oxygen today, keeping O2Sat >88% #Tobacco abuse -smokes 3 cigs/day, has not smoked today -was going to quit nov 25, encouraged to move it up to yesterday -nicotine patch, smoking cessation counseling #Hypothyroidism -continue home meds Diet: CC DVT: lovenox Code: Full Dispo: anticipate d/c today after O2 wean
[2018-11-20] MEDS: Mometasone/Formoterol 120 PUFF INHALER INH SCH (07:16)
[2018-11-20] MEDS: guaiFENesin/DM ER PO SCH (08:35)
[2018-11-20] MEDS ORDERED: Azithromycin 250 MG TAB PO SCH (09:00)
[2018-11-20] MEDS ORDERED: Meloxicam 15 MG TAB PO SCH (09:00)
[2018-11-20] MEDS ORDERED: Citalopram 10 MG TAB PO SCH (09:00)
[2018-11-20] MEDS ORDERED: lamoTRIgine 100 MG TAB PO SCH (09:00)
[2018-11-20] MEDS ORDERED: Enoxaparin Sodium 40 MG/0.4 ML SYRINGE SC SCH (09:00)
[2018-11-20] MEDS ORDERED: predniSONE 20 MG TAB PO SCH (09:00)
--- NOTE | 2018-11-20 12:09 | PRG ---
DATE OF SERVICE: 11/20/2018 Ms. Silva is a pleasant 53-year-old lady with a history of COPD. She was admitted with a COPD exacerbation, which has already markedly improved with the addition of steroids. She may likely benefit from a more prolonged course of tapered steroids, given that this is her second admission within a month. Job ID: [id number]
[2018-11-20 13:00] LABS: Actual Bicarbonate (HCO3a) 24.5 mEq/L (22-28); Analyzer IN Cardio ER; Base Excess (BEa) -0.9 mEq/L (-2.0 to +3.0); CO2 Tension 43.4 mmHg (35.0-45.0); Calcium, Ionized 1.19 mmol/L (1.12-1.30); Carboxyhemoglobin (COHb) 0.3 gm% (0.0-3.0); Hemoglobin (Hb) 13.1 g/dL (12.0-16.0); O2 Tension (PaO2) 68.4 mmHg (80.0-100.0); Potassium - ABG Lab 4.12 mmol/L (3.70-5.30); pH, Arterial 7.37 (7.35-7.45)
[2018-11-20 13:15] LABS: Puncture Site LR
[2018-11-20 14:57] VITALS: BP 97/59; TEMP 98.2
--- NOTE | 2018-11-21 06:16 | DIS ---
DATE OF ADMISSION: 11/19/2018 DATE OF DISCHARGE: 11/20/2018 ADMITTING RESIDENT: Alia Duran MD ADMITTING ATTENDING: Sal Foote MD DISCHARGE RESIDENT: Alia Duran MD DISCHARGE ATTENDING: Dr. Sha Carlos MD CONSULTS: None. PROCEDURES: None. PRIMARY DIAGNOSIS: Chronic obstructive pulmonary disease exacerbation. SECONDARY DIAGNOSES: Tobacco abuse, hypothyroidism. DISCHARGE MEDICATIONS: 1. Prednisone 40 mg p.o. daily x5 days. 2. Prednisone 20 mg p.o. daily x7 days. 3. Prednisone 10 mg p.o. daily x7 days. 4. Spiriva HandiHaler 18 mcg one inhalation p.o. daily. 5. Albuterol sulfate 8.5 g two puffs inhaled q.6 hours p.r.n. 6. DuoNeb 3 mL nebulized q.4 hours p.r.n. 7. Advair Diskus 500/50 one inhalation b.i.d. 8. Acetaminophen 325 mg p.o. q.4 hours p.r.n. 9. Citalopram hydrobromide 10 mg p.o. daily. 10. Levothyroxine sodium 25 mcg p.o. daily. 11. Meloxicam 15 mg p.o. daily. 12. Montelukast sodium 10 mg p.o. at bedtime. 13. Guaifenesin/DM ER 600 mg/30 mg two tabs p.o. q.12 hours. 14. Lamotrigine 150 mg p.o. daily. 15. Trazodone 150 mg p.o. at bedtime. DISCONTINUED MEDICATIONS: None. HISTORY OF PRESENT ILLNESS/HOSPITAL COURSE: The patient presented to the hospital after 2-day course of shortness of breath, worsening cough, increasing sputum production accompanied by occasional hemoptysis. The patient reported that she felt warm, but never took her temperature. In the ED, she was afebrile but had increased work of breathing and received two courses of DuoNeb, 125mcg of methylprednisolone, Mag sulfate, normal saline x1 L, lorazepam, Ativan, Motrin, acetaminophen. Her O2 saturation in the ED was 98% on 2 L. Upon evaluation, she was afebrile. Her white blood cell count was within normal limits at 9.1. She was put on observation with O2 as needed to keep oxygen saturation above 88%, scheduled DuoNeb, albuterol p.r.n., and started on 40 mg prednisone p.o. daily. On her date of discharge, she received two doses of 40 mg prednisone, was able to wean off oxygen. Denied shortness of breath and reported decreased cough and sputum production. Her ABG before discharge showed pH of 7.37, PO2 of 68.4, pCO2 of 43.4. The patient reports that she uses 2 L of O2 at night only at home. Based on her ABG, it was decided that she would not need daytime O2 at this time. She reportedly has been seen outpatient by Dr. Cardona, who recommended a sleep study but patient never followed up. It was recommended to patient that she follow up with Dr. Cardona's office soon after discharge, as it was suspected that she may have sleep apnea and a sleep study would be beneficial for her. DISPOSITION: Stable. DISCHARGE INSTRUCTIONS: 1. Location: Home. 2. Diet: Regular. 3. Activity: As tolerated. 4. Followup: Followup with PCP within 7 days and recommended follow up with Dr. Cardona's office for followup on sleep study. Job ID: [id number] [facility]
== END 2018-11-20 14:59 | disposition home or self-care (01) ==
LOC: ERS 06:35 → T4-B 13:10 → INTOOBSV 13:10
PROVIDERS: ADMIT Family Medicine; ATTEND Family Medicine
DX: J44.1 Chronic obstructive pulmonary disease with (acute) exacerbation (principal); E03.9 Hypothyroidism, unspecified; F41.9 Anxiety disorder, unspecified; F32.9 Major depressive disorder, single episode, unspecified; G47.00 Insomnia, unspecified; E66.9 Obesity, unspecified; Z68.39 Body mass index [BMI] 39.0-39.9, adult; Z87.891 Personal history of nicotine dependence; Z79.1 Long term (current) use of non-steroidal anti-inflammatories (NSAID); Z79.899 Other long term (current) drug therapy; Z88.1 Allergy status to other antibiotic agents; Z88.5 Allergy status to narcotic agent
CPT/HCPCS: 36415; 71045; 80053; 80306; 82805; 84145; 84484; 85025; 87040; 93005; 94640; 96361; 96365; 96372; 96374; 96375; 99406; G0378; J1650; J2060; J2930; J3475; J7512; J7620

== ENCOUNTER 2018-12-21 05:41 | Inpatient (IN) | payer OTHER ==
[2018-12-21] MEDS ORDERED: fentaNYL Citrate/PF 2,000 MCG in Sodium Chloride 0.9% 60 ML IV SCH ×2 (05:57→07:13)
[2018-12-21 06:02] LABS: #Eosinphils 0.1 thou/uL (0.0-0.7); #Lymphocytes 0.9 thou/uL (1.20-3.40); #Monocytes 0.6 thou/uL (0.11-0.59); #Neutrophils 8.8 thou/uL (1.40-6.50); %Basophils 0.2 % (0.0-1.0); %Eosinophils 1.4 % (0.0-10.0); %Lymphocytes 8.4 % (21.0-51.0); %Monocytes 5.9 % (0.0-10.0); %Neutrophils 84.1 % (42.0-75.0); Hemoglobin 11.2 g/dL (12.0-16.0); Mean Corpuscular HGB CONC 32.1 g/dL (32.0-36.0); Mean Corpuscular Hemoglobin 32.1 pg (27.0-31.0); Mean Platelet Volume 7.1 fL (7.4-10.4); Platelet Count 146 thou/uL (130-400); RBC Distribution Width 12.8 % (11.5-14.5); White Blood Cell (WBC) Count 10.5 thou/uL (4.8-10.8)
[2018-12-21 06:23] LABS: CO2 Tension 71.1 mmHg (35.0-45.0); pH, Arterial 7.13 (7.35-7.45)
[2018-12-21 06:24] LABS: Actual Bicarbonate (HCO3a) 23.3 mEq/L (22-28); Base Excess (BEa) -6.8 mEq/L (-2.0 to +3.0); Carboxyhemoglobin (COHb) 0.3 gm% (0.0-3.0); Hemoglobin (Hb) 11.9 g/dL (12.0-16.0)
[2018-12-21 06:25] LABS: ALV-art Gradient 66.025 (0-20); Analyzer IN Cardio ER; Calcium, Ionized 1.12 mmol/L (1.12-1.30); Potassium - ABG Lab 3.59 mmol/L (3.70-5.30); Puncture Site RBRACH
[2018-12-21 06:28] LABS: ALT (SGPT) 52 U/L (8-55); AST (SGOT) 79 U/L (5-34); Albumin 3.2 g/dL (3.5-5.0); Alkaline Phosphatase 61 U/L (40-110); Anion Gap 10 mmol/L (10-20); BUN (Urea Nitrogen) 19 mg/dL (9.8-20.1); Bilirubin, Total 0.4 mg/dL (0.2-1.2); CK (CPK) 1559 U/L (29-168); Calc. Creatinine Clearance 0 mL/min (70-130); Calcium 6.5 mg/dL (7.8-10.44); Carbon Dioxide 23 mmol/L (22-29); Chloride 117 mmol/L (98-107); Estimated GFR-MDRD 79; Globulin 1.6 g/dL (2.4-3.5); Glucose 134 mg/dL (70-105); Potassium 3.3 mmol/L (3.5-5.1); Protein, Total 4.8 g/dL (6.0-8.3); Sodium 147 mmol/L (136-145)
[2018-12-21] MEDS ORDERED: methylPREDNISolone Sod Succ/PF 125 MG/2 ML VIAL ONE (06:32)
[2018-12-21] MEDS ORDERED: Albuterol Sulfate 2.5 mg/3 ml Neb ONE ×2 (06:40)
[2018-12-21] MEDS ORDERED: Albuterol Sulfate 2.5 mg/0.5 ml Neb ONE (06:40)
[2018-12-21 06:53] LABS: CKMB 39.1 ng/mL (0-6.6)
[2018-12-21] MEDS ORDERED: Lorazepam 2 MG/ML VIAL SLOW IVP PRN ×2 (07:13→07:44)
[2018-12-21] MEDS ORDERED: Propofol 1,000 MG/100 ML VIAL IV PRN (07:13)
[2018-12-21] MEDS ORDERED: Propofol BOLUS 1,000 MG/100 ML VIAL IV PRN ×2 (07:13→07:44)
[2018-12-21] MEDS ORDERED: Fentanyl BOLUS 250 ML IVPB PRN ×2 (07:13→07:44)
[2018-12-21] MEDS ORDERED: DISCONTINUE PREVIOUS NARCOTIC PAIN MEDICATIONS AND BENZODIAZEPINES FS SCH ×2 (07:13→07:44)
[2018-12-21] MEDS ORDERED: Vecuronium 10 MG VIAL IV PRN (07:15)
[2018-12-21] MEDS ORDERED: DO NOT USE PRE-EXISTING LYTE PROTOCOL FS SCH (07:15)
[2018-12-21] MEDS ORDERED: Acetaminophen 1,000 MG in Premix Bag 1 BAG IVPB PRN (07:15)
[2018-12-21] MEDS ORDERED: Albuterol Sulfate 2.5 mg/3 ml Neb FS SCH (07:30)
[2018-12-21] MEDS ORDERED: CCU Electrolyte Replacement 1 EACH FS SCH (07:37)
[2018-12-21] MEDS ORDERED: Acetaminophen 500 MG TAB PO PRN (07:38)
--- NOTE | 2018-12-21 07:42 | RAD ---
CHEST ONE VIEW: INDICATIONS: Tube placement. Cardiac arrest. FINDINGS: ET tube is unchanged. There has been interval placement of a gastric catheter. There is mild suspecte d left basilar atelectasis. No consolidation, pleural effusion or pneumothorax is evident. There is p artial visualization of thoracolumbar spinal instrumentation. IMPRESSION: Interval placement of gastric catheter, projecting below the left hemidiaphragm and beyond the field of view. POS: BH
[2018-12-21] MEDS ORDERED: Potassium Phosphate 9 MMOL in Sodium Chloride 0.9% 100 ML IVPB PRN (07:43)
[2018-12-21] MEDS ORDERED: Potassium Chloride 40 MEQ in Premix Bag 1 BAG IVPB PRN (07:43)
[2018-12-21] MEDS ORDERED: CCU ELECTROLYTE REPLACEMENT PROTOCOL FS PRN (07:43)
[2018-12-21] MEDS ORDERED: Potassium Phosphate 12 MMOL in Sodium Chloride 0.9% 250 ML 250 ML IV PRN (07:43)
[2018-12-21] MEDS ORDERED: Potassium Phosphate 15 MMOL in Sodium Chloride 0.9% 250 ML 250 ML IV PRN (07:43)
[2018-12-21] MEDS ORDERED: Potassium Chloride 40 MEQ in Sodium Chloride 0.9% 250 ML 250 ML IVPB PRN (07:43)
[2018-12-21] MEDS ORDERED: PHOS-NAK 1 PKT PACK PO PRN ×2 (07:43)
[2018-12-21] MEDS ORDERED: Potassium Chloride 20 MEQ TAB PO PRN (07:43)
[2018-12-21] MEDS ORDERED: Magnesium 2 GM/50 ML 2 GM in Premix Bag 1 BAG IVPB PRN (07:43)
[2018-12-21] MEDS ORDERED: Magnesium Oxide 400 MG TAB PO PRN ×2 (07:43)
[2018-12-21] MEDS ORDERED: Morphine 2 MG/ML SYRINGE SLOW IVP PRN (07:44)
[2018-12-21] MEDS ORDERED: Ventilator Sedation Protocol 1 EACH FS SCH (07:45)
[2018-12-21 08:08] LABS: INR-International Normal Ratio 1.2; PTT 27.4 SEC (22.9-36.1); Prothrombin Time 15.1 SEC (12.0-14.7)
[2018-12-21 08:09] LABS: Actual Bicarbonate (HCO3a) 21.6 mEq/L (22-28); Base Excess (BEa) -9.3 mEq/L (-2.0 to +3.0); Calcium, Ionized 1.12 mmol/L (1.12-1.30); Carboxyhemoglobin (COHb) 1.7 gm% (0.0-3.0); Hemoglobin (Hb) 13.4 g/dL (12.0-16.0); Potassium - ABG Lab 3.38 mmol/L (3.70-5.30)
[2018-12-21 08:12] LABS: Lactic Acid 0.8 mmol/L (0.5-2.2)
[2018-12-21 08:17] LABS: Anion Gap 13 mmol/L (10-20); BUN (Urea Nitrogen) 19 mg/dL (9.8-20.1); Calc. Creatinine Clearance 0 mL/min (70-130); Carbon Dioxide 22 mmol/L (22-29); Chloride 115 mmol/L (98-107); Estimated GFR-MDRD 72; Glucose 134 mg/dL (70-105); Magnesium 2.2 mg/dL (1.6-2.6); Phosphorus 4.3 mg/dL (2.3-4.7); Potassium 3.3 mmol/L (3.5-5.1); Sodium 147 mmol/L (136-145)
[2018-12-21 08:21] LABS: Troponin I 0.055 ng/mL (< 0.028)
[2018-12-21 08:22] LABS: CO2 Tension 72.8 mmHg (35.0-45.0); pH, Arterial 7.09 (7.35-7.45)
[2018-12-21 08:23] LABS: Puncture Site LRA
--- NOTE | 2018-12-21 08:33 | CON ---
DATE OF CONSULTATION: 12/21/2018 CONSULTING PHYSICIAN: Floresist . REASON FOR CONSULTATION: At hospital arrest. The following encompasses 75 minutes of critical care time. HISTORY OF PRESENT ILLNESS: The patient is a 53-year-old female, who developed acute shortness of breath at home last night. Her daughter called 911. The patient was found to be pulseless on arrival, received CPR on the way to the [facility]. It is not clear to me how long she was down but the daughter thinks she heard her mother was down for about 30 minutes. This patient has a history of fairly marked COPD, has been seen by my partner, Dr. Cardona, in the past. We have also seen her in the hospital on several occasions in the past. She is currently intubated on mechanical ventilation. PAST MEDICAL HISTORY: 1. Hypothyroidism. 2. Chronic obstructive pulmonary disease. 3. Anxiety. 4. Paraspinal abscess. 5. Rotator cuff repair. 6. section x2. 7. Bilateral knee replacement. 8. Sinus surgery. 9. Mild STEVEN. SOCIAL HISTORY: She is a half a pack a day smoker. She previously used methamphetamine and has also used other illicit drugs in the past. The family denies she is using drugs currently. FAMILY MEDICAL HISTORY: Essentially unremarkable. REVIEW OF SYSTEMS: Cannot be obtained as the patient is currently on mechanical ventilation. MEDICATIONS PRIOR TO ADMISSION: Not known at this time. ALLERGIES: CEPHALEXIN, KEFLEX, AND MORPHINE. PHYSICAL EXAMINATION: VITAL SIGNS: Heart rate 89, blood pressure 121/98, and O2 saturation 100%, respiratory rate 19. She is currently intubated on mechanical ventilation. Her peak pressures are running in the mid to high 50s, plateau pressure is running in the 30s. NEUROLOGIC: She does not move, her left pupil is about 6 mm, right pupil is about 2 mm, neither react. She has endotracheal tube in place. NECK: Without adenopathy or JVD. LUNGS: Harsh expiratory wheezing bilaterally with prolonged expiratory phase. CARDIAC: S1, S2. Regular. ABDOMEN: Morbidly obese, soft, and nontender to palpation. EXTREMITIES: No clubbing, cyanosis, or edema. LABORATORY DATA: It does not look like a urine drug screen has been performed yet. White blood cell count is 10.5, hematocrit 35, and platelet count 146. PH is 7.13, pCO2 of 71, PO2 of 59. Sodium 147, potassium 3.3, chloride 117, CO2 of 23, BUN 19, creatinine 0.7, glucose 134. CK-MB is 39. Troponin 0.031. BNP 115. Chest x-ray shows hyperinflation, endotracheal tube just at the tina and subsequently been pulled back. ASSESSMENT: 1. Status post cardiopulmonary arrest, likely secondary to status asthmaticus. 2. Chronic obstructive pulmonary disease with exacerbation. 3. Acute respiratory failure. 4. Neurologic evidence of deep brain injury from prolonged cardiopulmonary resuscitation. 5. History of previous substance abuse. PLAN: 1. The patient will be kept intubated. 2. Head CT. 3. Steroids, nebulization treatments, IV antibiotics. 4. Cooling just to prevent fever. 5. Discussed with family. 6. Prognosis poor. Job ID: [id number]
--- NOTE | 2018-12-21 09:07 | CT ---
CT Brain WO Con: 12/21/2018 7:37 AM CLINICAL HISTORY: 53-year-old female with left blown pupil; came in unresponsive; CPR and active prog ress at home. IMAGING TECHNIQUE: Multiple CT images were obtained of the brain without IV contrast. COMPARISON: None. FINDINGS: Infarct: There is diffuse hypodensities seen throughout the brain parenchyma bilaterally with loss o f sulcation along the convexities as well as within the region of the cerebellum suspicious for diffuse hypoxic injury. There is poor delineation of the caudate heads bilaterally suspicious for are as of lacunar infarct. Focal hypodensity seen within the anterior limb of the left internal capsule suspicious for focal acute lacunar infarct. There is a hypodensity seen centrally within the midbrain on image 13 and image 12 of series 2 suspicious for lacunar infarct of the central midbrain. Hemorrhage: None.. Hydrocephalus: None.. Basal cisterns: Mild to moderately crowded. Cerebral parenchyma: As above. Midline shift: None.. Cerebellum: As above Brainstem: As above OTHER: Calvarium: Intact.. Visualized Paranasal sinuses: There is moderate mucosal thickening of the frontal, ethmoid and maxill ewa sinuses. Is postsurgical change of a sinus surgery involving the right maxillary sinus.. Extracranial soft tissues:Normal. IMPRESSION: Findings suspicious for diffuse hypoxic injury of the brain parenchyma with suspected lacunar infarct s of both caudate heads, left anterior limb internal capsule and central midbrain. Further evaluation with MRI of the brain is recommended. Findings called to Dr. Connor at 9:00 AM on 2018. Moderate paranasal sinus disease.
[2018-12-21] MEDS: Propofol 1,000 MG/100 ML VIAL IV PRN ×4 (10:05→21:46)
[2018-12-21] MEDS ORDERED: Sterile Water 10 ML ONE ×2 (11:02→17:04)
[2018-12-21] MEDS: Vecuronium 10 MG VIAL IVP PRN ×3 (11:04→22:17)
[2018-12-21] MEDS: Enoxaparin Sodium 40 MG/0.4 ML SYRINGE SC SCH (11:08)
[2018-12-21] MEDS: Pantoprazole 40 MG VIAL IVP SCH (11:09)
[2018-12-21] MEDS: Montelukast Sodium 10 mg Tablet PER TUBE SCH (11:09)
[2018-12-21] MEDS: Sodium Chloride 0.9% 1,000 ML IV SCH ×2 (11:14→20:25)
[2018-12-21] MEDS: methylPREDNISolone Sod Succ 40 MG VIAL IVP SCH ×3 (11:40→23:26)
[2018-12-21] MEDS ORDERED: methylPREDNISolone Sod Succ/PF 125 MG/2 ML VIAL IVP SCH (12:00)
[2018-12-21 12:08] LABS: Base Excess (BEa) -7.5 mEq/L (-2.0 to +3.0); Calcium, Ionized 1.08 mmol/L (1.12-1.30); Carboxyhemoglobin (COHb) 1.5 gm% (0.0-3.0); Hemoglobin (Hb) 13.2 g/dL (12.0-16.0); O2 Tension (PaO2) 97.5 mmHg (80.0-100.0); Potassium - ABG Lab 3.97 mmol/L (3.70-5.30)
[2018-12-21 12:10] LABS: CO2 Tension 63.2 mmHg (35.0-45.0); Puncture Site LRA; pH, Arterial 7.16 (7.35-7.45)
[2018-12-21 12:15] LABS: INR-International Normal Ratio 1.1; PTT 29.2 SEC (22.9-36.1); Prothrombin Time 14.5 SEC (12.0-14.7)
[2018-12-21 12:36] LABS: Troponin I 0.093 ng/mL (< 0.028)
--- NOTE | 2018-12-21 13:06 | HP ---
PRIMARY CARE PROVIDER: Marilee Cortez, with [facility] [employer] [place], [place]. CHIEF COMPLAINT: Cardiac arrest. HISTORY OF PRESENT ILLNESS: This is a 53-year-old female, who presents to [facility] in transfer from [place] after the patient apparently developed acute respiratory failure at home. The history is obtained after review of electronic medical records from [facility] and [facility] in addition to history obtained from EMS personnel. The patient's apparently noted that the patient with increasing shortness of breath, notifying EMS personnel. The patient's history significant for chronic hypoxic respiratory failure and chronic obstructive pulmonary disease with most recent admission approximately 4 weeks prior to this evaluation to [facility] for COPD flare. The patient was discharged home on antibiotics and prednisone taper. EMS personnel were notified as stated previously, at which point, the patient was evaluated and noted with thready pulse. The patient was transported to the [place] and apparently sustained cardiac arrest, requiring CPR en route. The patient had return of spontaneous circulation at [facility], at which point, the patient was intubated and given a femoral central line. The patient also received multiple medications to include intravenous normal saline, IV Solu-Medrol, albuterol sulfate, and fentanyl. The patient was placed on hypothermic protocol and transferred to [facility] for further evaluation. In the emergency room, the patient was also noted with dilated left pupil with pending CT imaging of the brain. PAST MEDICAL HISTORY: 1. Chronic hypoxic respiratory failure with recent discharge from [facility] on 11/20/2018. 2. Tobacco abuse, ongoing. 3. Hypothyroidism. 4. Anxiety/depression. 5. History of staphylococcal infection of the spine. PAST SURGICAL HISTORY: 1. Status post right rotator cuff repair. 2. Status post section x2. 3. Status post bilateral total knee arthroplasty. 4. Status post bilateral tubal ligation. 5. Status post repair of deviated nasal septum. 6. Status post back surgery. CURRENT MEDICATIONS: Based on previous admission in 2019; 1. Citalopram 40 mg p.o. daily. 2. Benadryl 25 mg p.o. at bedtime p.r.n. 3. Cymbalta 60 mg p.o. daily. 4. Advair Diskus one inhalation b.i.d. 5. Lamictal 100 mg p.o. daily. 6. Levothyroxine 25 mcg p.o. daily. 7. Singulair 10 mg p.o. at bedtime. 8. Lyrica 150 mg p.o. daily. 9. Trazodone 150 mg p.o. at bedtime. 10. Chantix 1 mg p.o. b.i.d. 11. ProAir HFA 2 puffs inhaled q.6 hours p.r.n. 12. Mucinex DM p.r.n. 13. Spiriva HandiHaler 18 mcg inhaled daily. ALLERGIES: TO MORPHINE AND KEFLEX. FAMILY HISTORY: No inheritable diseases per family report. SOCIAL HISTORY: The patient resides in [facility]. Smokes up to a pack to 2 packs of cigarettes daily. History of IV drug abuse, none recently. No alcohol. REVIEW OF SYSTEMS: Unobtainable as the patient on current mechanical ventilation and unresponsive. PHYSICAL EXAMINATION: VITAL SIGNS: On admission; blood pressure 136/90, pulse 90, respiratory rate 23, temperature 94 degrees Fahrenheit, O2 saturation 96% on 50% FiO2 with mechanical ventilation. GENERAL APPEARANCE: This is a 53-year-old female, sedated on current mechanical ventilation, unresponsive. HEENT: Left pupil dilated and unresponsive to light and accommodation. Right pupil 3 to 4 mm. Nares patent. OP is clear. ET tube in place. NECK: Supple. No adenopathy. No thyromegaly. No carotid bruits appreciated. CHEST: Diminished breath sounds bilaterally with prolonged expiratory phase. CARDIOVASCULAR: S1 and S2 with distant heart sounds. No murmur, rub, or gallop appreciated. ABDOMEN: Obese with landmarks difficult to palpate due to the patient's body habitus. Bowel sounds are positive in all 4 quadrants. No palpable mass. EXTREMITIES: Warm and dry with fair turgor. No clubbing, cyanosis, or asymmetric edema appreciated. Pulses palpable distally at the dorsalis pedis, posterior tibial, and popliteal arteries bilaterally. Capillary refill less than 2 seconds. NEUROLOGIC: Left dilated pupil unresponsive to light, unresponsive to painful stimuli or voice. Current mechanical ventilation. PERTINENT LABORATORY AND X-RAY FINDINGS: Sodium 147, potassium 3.3, chloride 117, CO2 of 23, BUN 19, creatinine 0.76, estimated GFR of 79, and glucose 134. Lactic acid level ranged between 0.8 to 0.9, calcium 6.5, AST of 79, ALT of 52, alkaline phosphatase 61. Total CK 1559, troponin 0.031. CBC showed a white blood cell count of 10.5, hemoglobin 11, hematocrit 35, MCV 100, platelet count 146 with 84% neutrophils. PT 15.1, INR 1.2, and PTT 27.4. ABG dated 12/21/2018, at 6:15 a.m. showed a pH of 7.13, pCO2 of 71, pO2 of 59, and O2 saturation 87% on 30% FiO2. Portable chest x-ray dated 12/21/2018, showed endotracheal tube in appropriate position. Nasogastric tube in place. Left basilar atelectasis. Two views of the knees showed no acute process. EKG dated 12/21/2018, by my interpretation shows sinus mechanism with heart rates in the 80s. Normal R-wave progression noted in the precordial leads. Normal axis. No acute ST-T wave changes appreciated. Her portable chest x-ray dated 12/21/2018, showed hyperinflation of bilateral lung cabrera. Endotracheal tube in appropriate positioning, cardiomegaly. ASSESSMENT AND PLAN: 1. Cardiac arrest with return of spontaneous circulation. The patient was admitted to the Critical Care Unit and initiated on hypothermic protocol. We will continue aggressive cardiopulmonary support. Check 2D transthoracic echocardiogram. Serial troponin I. Suspect the patient's presentation secondary to respiratory failure in the context of chronic obstructive pulmonary disease. Consult Cardiology and Critical Care Service. 2. Acute on chronic hypoxic hypercapnic respiratory failure. Suspect secondary to chronic obstructive pulmonary disease. We will continue mechanical ventilation with SIMV. Current FiO2 of 50%. Continue DuoNeb and Solu-Medrol. Levaquin 750 mg IV daily. Continue Singulair 10 mg daily. 3. Acute metabolic encephalopathy. Suspect multifactorial including cardiac arrest with return of spontaneous circulation and acute on chronic hypoxic hypercapnic respiratory failure. Check CT imaging of the brain to rule out acute central process given unequal pupil size and unresponsive left pupillary response. Consider Neurology consultation. 4. Hypernatremia. We will continue intravenous normal saline and monitor serial sodium. 5. Hypokalemia. Potassium chloride supplementation with CCU electrolyte replacement protocol. 6. Hypothyroidism. Continue levothyroxine 25 mcg daily. 7. Prophylaxis. SCDs while in bed. Lovenox 40 mg subcutaneously daily. Protonix 40 mg IV daily. 8. Code status is full. Surrogate medical decision maker is the patient's daughter. Job ID: [id number]
[2018-12-21 13:55] VITALS: BMI 39.9
[2018-12-21 19:05] LABS: INR-International Normal Ratio 1.1; PTT 29.9 SEC (22.9-36.1); Prothrombin Time 14.4 SEC (12.0-14.7)
[2018-12-21 19:23] LABS: Troponin I 0.045 ng/mL (< 0.028)
[2018-12-21 21:50] LABS: RBC/HPF 21-50 HPF (0-3)
[2018-12-21 21:51] LABS: Bacteria/HPF Rare-Few HPF (None Seen); Squamous Epithelial 0-3 HPF (0-3)
[2018-12-21 22:24] LABS: Amphetamine Detected (NotDetected); Benzodiazepine Screen Detected (NotDetected); Cocaine Metabolite Screen Not Detected (NotDetected); Medtox Reader # READER 4; Methamphetamine Detected (NotDetected); Opiate Screen Detected (NotDetected); Phencyclidine (PCP) Not Detected (NotDetected); THC/Cannabinoid Screen Detected (NotDetected)
[2018-12-21 22:25] LABS: Barbiturates Screen Not Detected (NotDetected); Medtox Control Line Valid? VALID (VALID); Methadone Not Detected (NotDetected); Oxycodone Screen Not Detected (NotDetected); Tricyclic Screen Not Detected (NotDetected)
[2018-12-22 00:12] LABS: INR-International Normal Ratio 1.1; PTT 28.7 SEC (22.9-36.1); Prothrombin Time 14.4 SEC (12.0-14.7)
[2018-12-22 00:31] LABS: Troponin I 0.023 ng/mL (< 0.028)
[2018-12-22] MEDS: Propofol 1,000 MG/100 ML VIAL IV PRN ×5 (02:18→22:58)
[2018-12-22] MEDS: Vecuronium 10 MG VIAL IVP PRN ×5 (02:54→22:25)
[2018-12-22] MEDS: fentaNYL Citrate/PF 2,000 MCG in Sodium Chloride 0.9% 60 ML IV SCH ×2 (03:24→21:43)
[2018-12-22 04:34] LABS: #Lymphocytes 0.7 thou/uL (1.20-3.40); #Monocytes 0.4 thou/uL (0.11-0.59); #Neutrophils 13.8 thou/uL (1.40-6.50); %Basophils 0.1 % (0.0-1.0); %Eosinophils 0.1 % (0.0-10.0); %Monocytes 2.4 % (0.0-10.0); %Neutrophils 92.5 % (42.0-75.0); Hemoglobin 12.7 g/dL (12.0-16.0); Mean Corpuscular HGB CONC 31.4 g/dL (32.0-36.0); Mean Corpuscular Hemoglobin 31.9 pg (27.0-31.0); Mean Platelet Volume 7.4 fL (7.4-10.4); Platelet Count 149 thou/uL (130-400); Red Blood Cell (RBC) Count 3.98 mill/uL (4.20-5.40); White Blood Cell (WBC) Count 14.9 thou/uL (4.8-10.8)
[2018-12-22 04:40] LABS: INR-International Normal Ratio 1.1; PTT 29.5 SEC (22.9-36.1); Prothrombin Time 14.4 SEC (12.0-14.7)
[2018-12-22 04:52] LABS: Anion Gap 13 mmol/L (10-20); BUN (Urea Nitrogen) 22 mg/dL (9.8-20.1); Calc. Creatinine Clearance 135 mL/min (70-130); Calcium 7.5 mg/dL (7.8-10.44); Carbon Dioxide 24 mmol/L (22-29); Chloride 111 mmol/L (98-107); Estimated GFR-MDRD 73; Glucose 130 mg/dL (70-105); Magnesium 2.1 mg/dL (1.6-2.6); Phosphorus 4.1 mg/dL (2.3-4.7); Potassium 4.3 mmol/L (3.5-5.1); Sodium 144 mmol/L (136-145)
[2018-12-22 05:11] LABS: Troponin I 0.023 ng/mL (< 0.028)
[2018-12-22] MEDS: methylPREDNISolone Sod Succ 40 MG VIAL IVP SCH ×3 (05:12→17:28)
[2018-12-22 06:57] LABS: Actual Bicarbonate (HCO3a) 25.2 mEq/L (22-28); Base Excess (BEa) -5.4 mEq/L (-2.0 to +3.0); Calcium, Ionized 1.14 mmol/L (1.12-1.30); Carboxyhemoglobin (COHb) 0.9 gm% (0.0-3.0); Hemoglobin (Hb) 12.8 g/dL (12.0-16.0); O2 Tension (PaO2) 83.9 mmHg (80.0-100.0); Potassium - ABG Lab 4.33 mmol/L (3.70-5.30)
[2018-12-22 07:03] LABS: CO2 Tension 77.1 mmHg (35.0-45.0); pH, Arterial 7.13 (7.35-7.45)
[2018-12-22 07:04] LABS: ALV-art Gradient 104.925 (0-20); Puncture Site LRA
--- NOTE | 2018-12-22 08:18 | RAD ---
CHEST ONE VIEW: INDICATIONS: History of pneumonia. COMPARISON: Prior exam dated 12/15/2018. FINDINGS: There is persistent left basilar atelectasis. ET tube and gastric catheter are unchanged. No pneumoth orax is evident. IMPRESSION: 1. Persistent left basilar atelectasis. 2. ET tube and gastric catheter are unchanged. POS: BH
[2018-12-22] MEDS ORDERED: Sterile Water 10 ML ONE (08:45)
--- NOTE | 2018-12-22 09:04 | PRG ---
DATE OF SERVICE: 12/22/2018 TIME SPENT: 35 minutes of critical care time. SUBJECTIVE: The patient remains intubated on mechanical ventilation. OBJECTIVE: VITAL SIGNS: On exam, temperature is 98.1, pulse 113, and blood pressure 129/79. She is requiring no vasopressors. NEUROLOGICAL: Left pupil is now about 4 mm and reactive. Right pupil is 3 mm and reactive. She has a gag. She has spontaneous respirations. She does not withdraw to pain. She has no reflexes that I can elicit in her extremities. HEENT: Otherwise, unremarkable. NECK: No JVD. LUNGS: She has harsh end-expiratory wheezing with prolonged expiratory phase. CARDIAC: S1 and S2. Tachycardic. ABDOMEN: Soft. EXTREMITIES: No edema. LABORATORY DATA: Sodium 144, potassium 4.3, chloride 111, CO2 of 24, BUN 22, creatinine 0.8, and glucose 130. Troponin 0.023. ABG, pH of 7.13, pCO2 of 77, PO2 of 83 on SIMV rate 12, tidal volume of 380, PEEP 5, pressure support 10, FiO2 of 40%. White blood cell count 14.9, hematocrit 40.5, and platelet count 149. IMAGING DATA: Chest x-ray shows no specific changes. ASSESSMENT: 1. Status post prolonged cardiac arrest with a deep anoxic brain injury. 2. Chronic obstructive pulmonary disease with exacerbation. PLAN: Despite improvement in her pupillary reflexes, I have little hope that she will improve from the neurologic she has sustained. The family seems to be understanding of this. We have agreed to wait about 72 hours from the initial insult to decide about withdrawing care. We are continuing with permissive hypercapnia, steroids, nebulization therapy, and antibiotics for COPD exacerbation. Job ID: [id number]
[2018-12-22] MEDS: Enoxaparin Sodium 40 MG/0.4 ML SYRINGE SC SCH (10:27)
[2018-12-22] MEDS: Montelukast Sodium 10 mg Tablet PER TUBE SCH (10:27)
[2018-12-22] MEDS: Pantoprazole 40 MG VIAL IVP SCH (10:27)
--- NOTE | 2018-12-22 12:06 | PDOC.HOSPP ---
- Subjective Encounter Date: 12/22/18 Encounter Time: 12:00 Subjective: f/u for cardiac arrest with ROSC on current [facility] ventilation. - Objective Vital Signs & Weight: Vital Signs (12 hours) Pulse Resp BP Pulse Ox 12/22/18 10:37 104 H 114/71 12/22/18 10:35 104 H 16 95 12/22/18 10:00 16 12/22/18 08:00 12 12/22/18 06:33 114 H 129/79 12/22/18 06:29 113 H 12 94 L 12/22/18 05:51 12 12/22/18 04:23 110 H 12 96 12/22/18 04:00 12 12/22/18 02:00 12 12/22/18 01:19 103 H 12/22/18 01:18 102 H 12 96 Weight Admit Weight 240 lb 4.862 oz Weight 240 lb 4.862 oz Most Recent Monitor Data Heart Rate from ECG 103 NIBP 114/73 NIBP BP-Mean 86 Respiration from ECG 16 SpO2 96 I&O: 12/21/18 12/22/18 12/23/18 06:59 06:59 06:59 Intake Total 2311.6 Output Total 1815 145 Balance 496.6 -145 Result Diagrams: 12/22/18 04:00 12/22/18 04:00 Additional Labs: Laboratory Tests 12/21/18 12/21/18 12/21/18 05:48 07:51 21:05 WBC 10.5 Hgb 11.2 L Neutrophils % 84.1 H Sodium 147 H Potassium 3.3 L Phosphorus 4.3 Magnesium 2.2 Urine Opiates Screen Detected H Ur Amphetamines Screen Detected H U Methamphetamines Scrn Detected H U Benzodiazepines Scrn Detected H U Cannabinoids Screen Detected H 12/22/18 12/22/18 04:00 04:00 WBC Hgb Neutrophils % 92.5 H Sodium Potassium Phosphorus 4.1 Magnesium 2.1 Urine Opiates Screen Ur Amphetamines Screen U Methamphetamines Scrn U Benzodiazepines Scrn U Cannabinoids Screen Radiology Reviewed by me: Yes (CT brain - diffuse hypoxic injury, multiple lacunar infarcts) EKG Reviewed by me: Yes (Tele - Sinus tachycardia) Hospitalist ROS - Medication Medications: Active Medications Generic Name Dose Route Start Last Admin Trade Name Freq PRN Reason Stop Dose Admin Albuterol/Ipratropium 3 ml 12/21/18 10:00 12/22/18 10:35 Duoneb NEB 3 ml [id number] MONTSE Administration Enoxaparin Sodium 40 mg 12/21/18 09:00 12/22/18 10:27 Lovenox SC 40 mg 0900 MONTSE Administration Sodium Chloride 1,000 mls @ 70 mls/hr 12/21/18 07:45 12/21/18 20:25 Normal Saline 0.9% IV 1,000 mls .[id number] MONTSE Administration Levofloxacin 750 mg/ Device 150 mls @ 100 mls/hr 12/21/18 08:00 12/22/18 10: 26 IVPB 150 mls Q24HR MONTSE Administration Fentanyl Citrate 2,000 mcg/ 100 mls @ 0 mls/hr 12/21/18 07:44 12/22/18 03:24 Sodium Chloride IV 01/20/19 07:44 100 mls INF MONTSE Administration Protocol Per Protocol Methylprednisolone Sodium Succinate 60 mg 12/21/18 12:00 12/22/18 05:12 Solu-Medrol IVP 60 mg Q6HR MONTSE Administration Montelukast Sodium 10 mg 12/21/18 09:00 12/22/18 10:27 Singulair PER TUBE 10 mg DAILY MONTSE Administration Pantoprazole Sodium 40 mg 12/21/18 09:00 12/22/18 10:27 Protonix IVP 40 mg DAILY MONTSE Administration Potassium Chloride 40 meq 12/21/18 07:43 12/21/18 21:46 Klor-Con PER TUBE 40 meq ASDIR PRN Administration FOR SERUM K+ 2.5-3.5 Propofol 1,000 mg 12/21/18 07:44 12/22/18 05:12 Diprivan IV 01/20/19 07:44 1,000 mg INF PRN Administration TO ACHIEVE GOAL RASS Protocol Vecuronium [place] 10 mg 12/21/18 07:37 12/22/18 08:53 Norcuron IVP 10 mg Q30MIN PRN Administration Agitation - Exam General - other findings: unresponsive, mech ventilation Eye - other findings: L pupil approx 5mm, R pupil 4mm ENT: normocephalic atraumatic ENT - other findings: ETT in place Neck: supple, symmetric, no JVD, no thyromegaly Heart: no murmur, no gallops, no rubs, normal peripheral pulses Heart - other findings: tachycardic Respiratory - other findings: diminished breath sounds bilat, prolonged exp phase Gastrointestinal: soft, normal bowel sounds, no palpable masses Gastrointestinal - other findings: obese Extremities: no cyanosis, no edema Skin: normal turgor, no lesions Neurological - other findings: sedate, unresponsive Hosp A/P (1) Cardiac arrest Code(s): I46.9 - CARDIAC ARREST, CAUSE UNSPECIFIED Status: Acute Plan: s/p prolonged arrest with ROSC, clinically with extensive hypoxic brain injury, continue supportive mgmt (2) Acute on chronic respiratory failure with hypoxia and hypercapnia Code(s): J96.21 - ACUTE AND CHRONIC RESPIRATORY FAILURE WITH HYPOXIA; J96.22 - ACUTE AND CHRONIC RESPIRATORY FAILURE WITH HYPERCAPNIA Status: Acute Plan: Multifactorial including COPD, continue Duonebs, Solumedrol, Levaquin and mechanical ventilation (3) Polysubstance abuse Code(s): F19.10 - OTHER PSYCHOACTIVE SUBSTANCE ABUSE, UNCOMPLICATED Status: Acute Plan: Methamphetamines, Opiates, THC +, likely contributing to current resp failure/ cardiac arrest presentation (4) Hypernatremia Code(s): E87.0 - HYPEROSMOLALITY AND HYPERNATREMIA Status: Acute Plan: Improved, continue low-volume IVF's, serial Na+ monitoring (5) Hypoxic brain injury Code(s): G93.1 - ANOXIC BRAIN DAMAGE, NOT ELSEWHERE CLASSIFIED Status: Acute Plan: Secondary to above, serial neuro assessments, CT brain showing diffuse hypoxic injury and CVA's (6) Acute anoxic encephalopathy Code(s): G93.1 - ANOXIC BRAIN DAMAGE, NOT ELSEWHERE CLASSIFIED Status: Acute Plan: Multifactorial, consider EEG, and perfusion study, Neurology consult - Plan continue antibiotics, social science analyst, respiratory therapy, DVT proph w/lovenox , DVT proph w/SCDs Continue critical support Continue SIMV Continue Levaquin Consider Palliative care consult Consider cerebral perfusion study Continue IVF NS AM lab: BMP, CBC, Mg++, PO3 PCXR in am Poor prognosis, family weighing options regarding Palliative measures
[2018-12-22] MEDS: Sodium Chloride 0.9% 1,000 ML IV SCH (15:05)
[2018-12-23] MEDS: methylPREDNISolone Sod Succ 40 MG VIAL IVP SCH ×4 (00:17→18:10)
[2018-12-23] MEDS: Propofol 1,000 MG/100 ML VIAL IV PRN ×5 (03:38→21:53)
[2018-12-23] MEDS: Vecuronium 10 MG VIAL IVP PRN ×4 (04:56→19:19)
[2018-12-23 05:02] LABS: Anion Gap 11 mmol/L (10-20); BUN (Urea Nitrogen) 26 mg/dL (9.8-20.1); Calc. Creatinine Clearance 138 mL/min (70-130); Calcium 8.4 mg/dL (7.8-10.44); Carbon Dioxide 28 mmol/L (22-29); Chloride 112 mmol/L (98-107); Estimated GFR-MDRD 75; Glucose 140 mg/dL (70-105); Magnesium 2.4 mg/dL (1.6-2.6); Potassium 4.1 mmol/L (3.5-5.1); Sodium 147 mmol/L (136-145)
[2018-12-23 05:26] LABS: Phosphorus 2.4 mg/dL (2.3-4.7)
[2018-12-23] MEDS: Sodium Chloride 0.9% 1,000 ML IV SCH (05:32)
[2018-12-23 06:27] LABS: #Lymphocytes 0.5 thou/uL (1.20-3.40); #Monocytes 0.4 thou/uL (0.11-0.59); #Neutrophils 11.3 thou/uL (1.40-6.50); %Basophils 0.1 % (0.0-1.0); %Eosinophils 0.1 % (0.0-10.0); %Lymphocytes 4.4 % (21.0-51.0); %Monocytes 3.4 % (0.0-10.0); %Neutrophils 92.1 % (42.0-75.0); Hemoglobin 11.8 g/dL (12.0-16.0); Mean Corpuscular HGB CONC 31.6 g/dL (32.0-36.0); Mean Platelet Volume 7.9 fL (7.4-10.4); Platelet Count 135 thou/uL (130-400); RBC Distribution Width 13.1 % (11.5-14.5); Red Blood Cell (RBC) Count 3.68 mill/uL (4.20-5.40); White Blood Cell (WBC) Count 12.2 thou/uL (4.8-10.8)
[2018-12-23 07:23] LABS: Base Excess (BEa) -0.9 mEq/L (-2.0 to +3.0); CO2 Tension 59.5 mmHg (35.0-45.0); Hemoglobin (Hb) 12.5 g/dL (12.0-16.0); O2 Tension (PaO2) 84.6 mmHg (80.0-100.0); Potassium - ABG Lab 4.07 mmol/L (3.70-5.30); pH, Arterial 7.27 (7.35-7.45)
[2018-12-23 07:26] LABS: ALV-art Gradient 126.225 (0-20); Puncture Site LR
[2018-12-23 07:41] LABS: ALT (SGPT) 63 U/L (8-55); AST (SGOT) 76 U/L (5-34); Albumin 3.7 g/dL (3.5-5.0); Alkaline Phosphatase 61 U/L (40-110); Bilirubin, Direct 0.1 mg/dL (0.1-0.3); Bilirubin, Total 0.2 mg/dL (0.2-1.2)
[2018-12-23] MEDS: Enoxaparin Sodium 40 MG/0.4 ML SYRINGE SC SCH (08:52)
[2018-12-23] MEDS: Montelukast Sodium 10 mg Tablet PER TUBE SCH (08:52)
[2018-12-23] MEDS: Pantoprazole 40 MG VIAL IVP SCH (08:52)
[2018-12-23] MEDS: Sodium Chloride 0.45% 1,000 ML IV SCH ×2 (08:59→23:11)
[2018-12-23] MEDS ORDERED: Sterile Water 10 ML ONE ×2 (09:15→14:58)
--- NOTE | 2018-12-23 09:50 | RAD ---
SINGLE VIEW CHEST: Date: 12/23/18 COMPARISON: 12/22/18. HISTORY: Pneumonia. FINDINGS: Single view of the chest shows normal sized cardiomediastinal silhouette. Endotracheal tube and NG tu be are unchanged in position. Atelectasis is seen in the left lung base. There is no evidence of cons olidation, mass, or pleural effusion. Hardware is seen in the spine. IMPRESSION: No evidence of acute cardiopulmonary disease. POS: CET
--- NOTE | 2018-12-23 10:00 | PRG ---
DATE OF SERVICE: 12/23/2018 TIME SPENT: 35 minutes of critical time. SUBJECTIVE: The patient remains intubated on mechanical ventilation. OBJECTIVE: VITAL SIGNS: Temperature is 99.0, pulse 77, blood pressure 134/83. Intake for 24 hours 2343, output 1321. HEENT: Unremarkable. NECK: No JVD. LUNGS: Prolonged expiratory phase. Coarse wheezing bilaterally. CARDIAC: S1 and S2. Regular. ABDOMEN: Soft. EXTREMITIES: No edema. NEUROLOGIC: Pupils are reactive. She has a weak gag reflex. She has some spontaneous respirations, but does not withdraw to pain. LABORATORY DATA: Sodium 147, potassium 4.1, chloride 112, CO2 of 28, BUN 26, creatinine 0.8, glucose 140. White blood cell count 12.1, hematocrit 37.2, and platelet count 135. PH of 7.27, pCO2 of 59, pO2 of 84 on SIMV rate of 16, tidal volume of 380, PEEP of 5, pressure support of 10 FiO2 of 40%. IMAGING STUDIES: Chest x-ray shows no significant change. ASSESSMENT: 1. Status asthmaticus. 2. Chronic obstructive pulmonary disease exacerbation. 3. Respiratory failure requiring mechanical ventilation. 4. Status post prolonged arrest. 5. Severe anoxic brain injury. 6. Mild hypernatremia. PLAN: The patient's neurologic status has not improved. Therefore, I think the chances for meaningful neurologic recovery are dismal. She is still very bronchospastic. I will have a meeting with the family today and discuss her condition with them and see how they want to proceed. Job ID: [id number]
--- NOTE | 2018-12-23 13:59 | PDOC.HOSPP ---
- Subjective Encounter Date: 12/23/18 Encounter Time: 13:45 Subjective: f/u resp failure, cardiac arrest with ROSC but remains [facility] ventilated without neurologic recovery. Plans for withdrawal of care and organ donation likely in 24h. - Objective Vital Signs & Weight: Vital Signs (12 hours) Temp Pulse Resp BP Pulse Ox 12/23/18 12:38 93 137/91 H 12/23/18 12:00 16 12/23/18 10:31 97 155/98 H 12/23/18 10:00 16 12/23/18 08:00 97.6 F 16 98 12/23/18 07:10 75 123/73 12/23/18 06:00 16 12/23/18 04:00 16 12/23/18 03:38 78 135/86 12/23/18 02:00 16 Weight Admit Weight 240 lb 4.862 oz Weight 240 lb 4.862 oz Most Recent Monitor Data Heart Rate from ECG 88 NIBP 135/85 NIBP BP-Mean 101 Respiration from ECG 16 SpO2 96 I&O: 12/22/18 12/23/18 12/24/18 06:59 06:59 06:59 Intake Total 2311.6 2343 Output Total 1815 1321 455 Balance 496.6 1022 -455 Result Diagrams: 12/23/18 06:06 12/23/18 04:30 Additional Labs: Laboratory Tests 12/21/18 12/21/18 12/21/18 05:48 07:51 21:05 WBC 10.5 Hgb 11.2 L Neutrophils % 84.1 H Sodium 147 H Potassium 3.3 L Phosphorus 4.3 Magnesium 2.2 Urine Opiates Screen Detected H Ur Amphetamines Screen Detected H U Methamphetamines Scrn Detected H U Benzodiazepines Scrn Detected H U Cannabinoids Screen Detected H 12/22/18 12/22/18 04:00 04:00 WBC Hgb Neutrophils % 92.5 H Sodium Potassium Phosphorus 4.1 Magnesium 2.1 Urine Opiates Screen Ur Amphetamines Screen U Methamphetamines Scrn U Benzodiazepines Scrn U Cannabinoids Screen Radiology Reviewed by me: Yes (PCXR - no acute infiltrates) EKG Reviewed by me: Yes (Tele - SR) Hospitalist ROS - Medication Medications: Active Medications Generic Name Dose Route Start Last Admin Trade Name Freq PRN Reason Stop Dose Admin Albuterol/Ipratropium 3 ml 12/21/18 10:00 12/23/18 12:38 Duoneb NEB 3 ml [id number] MONTSE Administration Enoxaparin Sodium 40 mg 12/21/18 09:00 12/23/18 08:52 Lovenox SC 40 mg 0900 MONTSE Administration Levofloxacin 750 mg/ Device 150 mls @ 100 mls/hr 12/21/18 08:00 12/23/18 08: 59 IVPB 150 mls Q24HR MONTSE Administration Fentanyl Citrate 2,000 mcg/ 100 mls @ 0 mls/hr 12/21/18 07:44 12/22/18 21:43 Sodium Chloride IV 01/20/19 07:44 100 mls INF MONTSE Administration Protocol Per Protocol Sodium Chloride 1,000 mls @ 75 mls/hr 12/23/18 08:30 12/23/18 08:59 1/2 Normal Saline IV 1,000 mls .[id number] MONTSE Administration Methylprednisolone Sodium Succinate 60 mg 12/21/18 12:00 12/23/18 12:22 Solu-Medrol IVP 60 mg Q6HR MONTSE Administration Montelukast Sodium 10 mg 12/21/18 09:00 12/23/18 08:52 Singulair PER TUBE 10 mg DAILY MONTSE Administration Pantoprazole Sodium 40 mg 12/21/18 09:00 12/23/18 08:52 Protonix IVP 40 mg DAILY MONTSE Administration Potassium Chloride 40 meq 12/21/18 07:43 12/21/18 21:46 Klor-Con PER TUBE 40 meq ASDIR PRN Administration FOR SERUM K+ 2.5-3.5 Propofol 1,000 mg 12/21/18 07:44 12/23/18 12:23 Diprivan IV 01/20/19 07:44 1,000 mg INF PRN Administration TO ACHIEVE GOAL RASS Protocol Vecuronium [place] 10 mg 12/21/18 07:37 12/23/18 09:17 Norcuron IVP 10 mg Q30MIN PRN Administration Agitation - Exam General Appearance: ill appearing General - other findings: unresponsive, mech ventilation Eye: anicteric sclera ENT: normocephalic atraumatic, no oropharyngeal lesions Neck: supple, symmetric, no JVD, no thyromegaly Heart: RRR, no murmur, no gallops, no rubs Respiratory - other findings: prolonged exp phase, diminished airflow bilat Gastrointestinal: soft, non-distended, normal bowel sounds, no palpable masses Gastrointestinal - other findings: obese Extremities: no cyanosis, no clubbing Skin: normal turgor Neurological - other findings: unresponsive Psychiatric: somnolent Hosp A/P (1) Cardiac arrest Code(s): I46.9 - CARDIAC ARREST, CAUSE UNSPECIFIED Status: Acute Plan: Supportive measures, appears to be end-stage process and unrecoverable (2) Acute on chronic respiratory failure with hypoxia and hypercapnia Code(s): J96.21 - ACUTE AND CHRONIC RESPIRATORY FAILURE WITH HYPOXIA; J96.22 - ACUTE AND CHRONIC RESPIRATORY FAILURE WITH HYPERCAPNIA Status: Acute Plan: Remains on [facility] ventilation without possibility for extubation or recovery (3) Polysubstance abuse Code(s): F19.10 - OTHER PSYCHOACTIVE SUBSTANCE ABUSE, UNCOMPLICATED Status: Acute (4) Hypernatremia Code(s): E87.0 - HYPEROSMOLALITY AND HYPERNATREMIA Status: Acute (5) Hypoxic brain injury Code(s): G93.1 - ANOXIC BRAIN DAMAGE, NOT ELSEWHERE CLASSIFIED Status: Acute (6) Acute anoxic encephalopathy Code(s): G93.1 - ANOXIC BRAIN DAMAGE, NOT ELSEWHERE CLASSIFIED Status: Acute Plan: Suspected given clinical picture and history - Plan social insurance administrator, respiratory therapy Continue critical support pending withdrawal of care Continue SIMV Continue Levaquin Family wishing to pursue withdrawal of care/organ donation Continue IVF NS AM lab: BMP, CBC, Mg++, PO3
[2018-12-23 16:07] LABS: #Lymphocytes 0.3 thou/uL (1.20-3.40); #Monocytes 0.3 thou/uL (0.11-0.59); #Neutrophils 11.3 thou/uL (1.40-6.50); %Eosinophils 0.2 % (0.0-10.0); %Lymphocytes 2.8 % (21.0-51.0); %Monocytes 2.7 % (0.0-10.0); %Neutrophils 94.3 % (42.0-75.0); Hemoglobin 11.7 g/dL (12.0-16.0); Mean Corpuscular HGB CONC 32.6 g/dL (32.0-36.0); Mean Corpuscular Hemoglobin 32.1 pg (27.0-31.0); Mean Corpuscular Volume 98.4 fL (78.0-98.0); Mean Platelet Volume 7.4 fL (7.4-10.4); Platelet Count 127 thou/uL (130-400); RBC Distribution Width 12.9 % (11.5-14.5); Red Blood Cell (RBC) Count 3.66 mill/uL (4.20-5.40)
[2018-12-23 16:12] LABS: INR-International Normal Ratio 1.1; PTT 26.4 SEC (22.9-36.1); Prothrombin Time 14.1 SEC (12.0-14.7)
[2018-12-23 16:23] LABS: Bilirubin Negative (Negative); Blood, Urine 2+ (Negative); Clarity Turbid (Clear); Glucose, Urine (Dipstick) Normal (Negative); Leukocyte Negative Leu/uL (Negative); Nitrite Negative (Negative); Protein, Urine (Dipstick) 50 mg/dL (Neg-Trace); Urobilinogen Normal mg/dL (Less than 2)
[2018-12-23 16:42] LABS: ALT (SGPT) 56 U/L (8-55); AST (SGOT) 62 U/L (5-34); Albumin 3.5 g/dL (3.5-5.0); Alkaline Phosphatase 57 U/L (40-110); Anion Gap 9 mmol/L (10-20); BUN (Urea Nitrogen) 26 mg/dL (9.8-20.1); Bilirubin, Direct 0.1 mg/dL (0.1-0.3); Bilirubin, Total 0.2 mg/dL (0.2-1.2); Calc. Creatinine Clearance 138 mL/min (70-130); Calcium 8.3 mg/dL (7.8-10.44); Carbon Dioxide 28 mmol/L (22-29); Chloride 112 mmol/L (98-107); Estimated GFR-MDRD 75; Globulin 2.4 g/dL (2.4-3.5); Glucose 125 mg/dL (70-105); Magnesium 2.5 mg/dL (1.6-2.6); Phosphorus 1.8 mg/dL (2.3-4.7); Potassium 3.9 mmol/L (3.5-5.1); Protein, Total 5.9 g/dL (6.0-8.3); Sodium 145 mmol/L (136-145)
[2018-12-23 16:57] LABS: Bacteria/HPF 2+ HPF (None Seen); RBC/HPF Greater than 50 HPF (0-3)
[2018-12-23 17:41] LABS: Actual Bicarbonate (HCO3a) 25.1 mEq/L (22-28); Base Excess (BEa) -2.6 mEq/L (-2.0 to +3.0); CO2 Tension 56.6 mmHg (35.0-45.0); Calcium, Ionized 1.21 mmol/L (1.12-1.30); Carboxyhemoglobin (COHb) 0.8 gm% (0.0-3.0); Hemoglobin (Hb) 12.4 g/dL (12.0-16.0); O2 Tension (PaO2) 77.6 mmHg (80.0-100.0); Potassium - ABG Lab 3.96 mmol/L (3.70-5.30); pH, Arterial 7.26 (7.35-7.45)
[2018-12-23 17:43] LABS: Puncture Site RR
[2018-12-23] MEDS: fentaNYL Citrate/PF 2,000 MCG in Sodium Chloride 0.9% 60 ML IV SCH (19:03)
[2018-12-23 22:43] LABS: #Lymphocytes 0.4 thou/uL (1.20-3.40); #Monocytes 0.3 thou/uL (0.11-0.59); #Neutrophils 10.5 thou/uL (1.40-6.50); %Basophils 0.1 % (0.0-1.0); %Eosinophils 0.1 % (0.0-10.0); %Lymphocytes 3.7 % (21.0-51.0); %Monocytes 2.8 % (0.0-10.0); %Neutrophils 93.3 % (42.0-75.0); Hemoglobin 11.7 g/dL (12.0-16.0); Mean Corpuscular HGB CONC 31.3 g/dL (32.0-36.0); Mean Corpuscular Hemoglobin 31.4 pg (27.0-31.0); Mean Platelet Volume 7.8 fL (7.4-10.4); Platelet Count 135 thou/uL (130-400); RBC Distribution Width 12.9 % (11.5-14.5); Red Blood Cell (RBC) Count 3.72 mill/uL (4.20-5.40); White Blood Cell (WBC) Count 11.3 thou/uL (4.8-10.8)
[2018-12-23 22:54] LABS: ALT (SGPT) 52 U/L (8-55); AST (SGOT) 57 U/L (5-34); Albumin 3.5 g/dL (3.5-5.0); Alkaline Phosphatase 55 U/L (40-110); Anion Gap 9 mmol/L (10-20); BUN (Urea Nitrogen) 27 mg/dL (9.8-20.1); Bilirubin, Total 0.2 mg/dL (0.2-1.2); Calc. Creatinine Clearance 140 mL/min (70-130); Calcium 8.5 mg/dL (7.8-10.44); Carbon Dioxide 28 mmol/L (22-29); Chloride 113 mmol/L (98-107); Estimated GFR-MDRD 76; Globulin 2.4 g/dL (2.4-3.5); Glucose 136 mg/dL (70-105); Magnesium 2.6 mg/dL (1.6-2.6); Phosphorus 2.2 mg/dL (2.3-4.7); Potassium 4.1 mmol/L (3.5-5.1); Protein, Total 5.9 g/dL (6.0-8.3); Sodium 146 mmol/L (136-145)
[2018-12-23 23:45] LABS: Actual Bicarbonate (HCO3a) 30.9 mEq/L (22-28); Base Excess (BEa) 2.1 mEq/L (-2.0 to +3.0); Calcium, Ionized 1.22 mmol/L (1.12-1.30); Hemoglobin (Hb) 12.5 g/dL (12.0-16.0); O2 Tension (PaO2) 135.5 mmHg (80.0-100.0); pH, Arterial 7.26 (7.35-7.45)
[2018-12-23 23:53] LABS: CO2 Tension 70.4 mmHg (35.0-45.0); Puncture Site LBRACHIAL
[2018-12-24] MEDS: methylPREDNISolone Sod Succ 40 MG VIAL IVP SCH ×4 (00:27→18:01)
[2018-12-24 00:50] LABS: Bacteria/HPF None Seen HPF (None Seen); Bilirubin Negative (Negative); Blood, Urine 3+ (Negative); Clarity Turbid (Clear); Glucose, Urine (Dipstick) Normal (Negative); Leukocyte 25 Leu/uL (Negative); Nitrite Negative (Negative); Protein, Urine (Dipstick) 30 mg/dL (Neg-Trace); RBC/HPF Greater than 50 HPF (0-3); Squamous Epithelial None Seen HPF (0-3); Urobilinogen Normal mg/dL (Less than 2); WBC/HPF 21-50 HPF (0-3)
[2018-12-24 01:07] VITALS: TEMP 99.3
[2018-12-24] MEDS: Propofol 1,000 MG/100 ML VIAL IV PRN ×4 (03:00→16:17)
[2018-12-24] MEDS: Vecuronium 10 MG VIAL IVP PRN ×2 (03:22→13:21)
[2018-12-24 04:49] LABS: #Lymphocytes 0.4 thou/uL (1.20-3.40); #Monocytes 0.4 thou/uL (0.11-0.59); #Neutrophils 8.9 thou/uL (1.40-6.50); %Basophils 0.1 % (0.0-1.0); %Eosinophils 0.1 % (0.0-10.0); %Lymphocytes 4.1 % (21.0-51.0); %Monocytes 4.2 % (0.0-10.0); %Neutrophils 91.6 % (42.0-75.0); Hemoglobin 11.6 g/dL (12.0-16.0); Mean Corpuscular HGB CONC 31.3 g/dL (32.0-36.0); Mean Corpuscular Hemoglobin 31.4 pg (27.0-31.0); Mean Platelet Volume 7.9 fL (7.4-10.4); Platelet Count 127 thou/uL (130-400); Red Blood Cell (RBC) Count 3.68 mill/uL (4.20-5.40); White Blood Cell (WBC) Count 9.7 thou/uL (4.8-10.8)
[2018-12-24 04:56] LABS: INR-International Normal Ratio 1.1; PTT 25.5 SEC (22.9-36.1); Prothrombin Time 14.5 SEC (12.0-14.7)
[2018-12-24 05:09] LABS: ALT (SGPT) 49 U/L (8-55); AST (SGOT) 48 U/L (5-34); Albumin 3.5 g/dL (3.5-5.0); Alkaline Phosphatase 55 U/L (40-110); Anion Gap 9 mmol/L (10-20); BUN (Urea Nitrogen) 24 mg/dL (9.8-20.1); Bilirubin, Total 0.2 mg/dL (0.2-1.2); Calc. Creatinine Clearance 144 mL/min (70-130); Calcium 8.7 mg/dL (7.8-10.44); Carbon Dioxide 30 mmol/L (22-29); Chloride 113 mmol/L (98-107); Estimated GFR-MDRD 78; Globulin 2.3 g/dL (2.4-3.5); Glucose 138 mg/dL (70-105); Magnesium 2.6 mg/dL (1.6-2.6); Phosphorus 2.2 mg/dL (2.3-4.7); Potassium 3.9 mmol/L (3.5-5.1); Protein, Total 5.8 g/dL (6.0-8.3); Sodium 148 mmol/L (136-145)
[2018-12-24 08:06] LABS: Actual Bicarbonate (HCO3a) 25.8 mEq/L (22-28); CO2 Tension 58.5 mmHg (35.0-45.0); Carboxyhemoglobin (COHb) 0.9 gm% (0.0-3.0); Hemoglobin (Hb) 12.5 g/dL (12.0-16.0); O2 Tension (PaO2) 127.3 mmHg (80.0-100.0); pH, Arterial 7.26 (7.35-7.45)
[2018-12-24 08:07] LABS: Calcium, Ionized 1.27 mmol/L (1.12-1.30); Potassium - ABG Lab 3.89 mmol/L (3.70-5.30)
[2018-12-24 08:08] LABS: ALV-art Gradient 227.375 (0-20); Puncture Site LB
[2018-12-24] MEDS: Montelukast Sodium 10 mg Tablet PER TUBE SCH (09:10)
[2018-12-24] MEDS: Enoxaparin Sodium 40 MG/0.4 ML SYRINGE SC SCH (09:10)
[2018-12-24] MEDS: Pantoprazole 40 MG VIAL IVP SCH (09:11)
--- NOTE | 2018-12-24 09:13 | RAD ---
SINGLE VIEW OF THE CHEST: COMPARISON: 12/23/2018. HISTORY: Pneumonia. FINDINGS: A single view of the chest shows a normal-size cardiomediastinal silhouette. The endotracheal tube a nd NG Tube are unchanged in position. There is atelectasis in the left lung base. There is no evide nce of consolidation, mass, or pleural effusion. IMPRESSION: Left basilar atelectasis without other acute cardiopulmonary disease. POS: CET
--- NOTE | 2018-12-24 10:30 | PRG ---
DATE OF SERVICE: 12/24/2018 A 35 minutes of critical care time. SUBJECTIVE: The patient remains intubated on mechanical ventilation. I believe the family is trying to decide about withdrawal of care versus possible discontinue the organ donation. She has hepatitis C, which is making location of potential donors difficult. OBJECTIVE: VITAL SIGNS: Her temperature is 99.1, pulse 93, and blood pressure 155/110. She is currently on propofol drip. She is on no vasopressors. Intake for 24 hours 195 and output 2586. HEENT: Unremarkable. NECK: No adenopathy. No JVD. LUNGS: Diffuse wheezing. CARDIAC: S1 and S2. Regular. ABDOMEN: Soft. EXTREMITIES: No edema. LABORATORY DATA: White blood cell count 9.7, hematocrit 37, and platelet count 127. INR 1.1. A pH of 7.26, pCO2 of 58, pO2 of 127 on SIMV rate 16, tidal volume of 380, PEEP 5, pressure support of 10, and FiO2 of 60%. Sodium 148, potassium 3.9, chloride 113, CO2 of 30, BUN 24, creatinine 0.7, and glucose 138. ASSESSMENT: 1. Status post prolonged cardiopulmonary arrest with anoxic brain injury, from which she will not recover. 2. Respiratory failure, requiring mechanical ventilation. 3. Status asthmaticus. PLAN: 1. We continue to use permissive hypercapnia because she continues to be bronchospastic. 2. We are keeping her on mechanical ventilation until organ procurement team decides what they want to do. Again, this is a hopeless case and if they decide not to take organs, then she will be terminally extubated. Job ID: [id number]
[2018-12-24] MEDS: Sodium Chloride 0.45% 1,000 ML IV SCH (11:55)
[2018-12-24 12:25] LABS: INR-International Normal Ratio 1.2; PTT 26.1 SEC (22.9-36.1); Prothrombin Time 14.8 SEC (12.0-14.7)
[2018-12-24] MEDS ORDERED: Heparin 30,000 units/30 ml VIAL SLOW IVP SCH (12:30)
--- NOTE | 2018-12-24 14:16 | CT ---
EXAM: CT chest, abdomen, and pelvis without IV contrast: HISTORY: Respiratory distress, donor patient evaluate liver and kidneys. COMPARISON: None FINDINGS: CT THORAX: Lungs: There is focal area of pleural thickening along the superior aspect right major fissure. There is mild bibasilar atelectasis present. There is an ill-defined nodular density at the left lung base which could be related to focal area of pneumonitis. There are minimal linear densities seen in the hilar regions bilaterally. Pleura: Small bilateral pleural effusions are present greater on the right. Lymph nodes: Lack of intravenous contrast limits sensitivity for evaluation of the vessels and for ev aluation of lymph nodes. There is a mildly prominent lymph node in the AP window measuring 1.2 cm in short axis dimension. Mediastinum: Endotracheal tube is noted in place with the tip just above the level the tina. Nas[place] stric tube is noted in place with the tip in the gastric antrum. Chest wall: No abnormalities CT ABDOMEN AND PELVIS: Lack of intravenous contrast limits evaluation of the parenchymal organs. Liver: Grossly normal nonenhanced CT appearance. Gallbladder: Distended measuring 5.7 cm in diameter. Increased density seen layering dependently with in the gallbladder lumen which could be related to small amount of sludge and/or gallbladder calculi. There is suggestion of trace amount of adjacent inflammatory stranding. Cholecystitis in the correct clinical scenario is a possibility. Pancreas: Grossly normal nonenhanced CT appearance. Spleen:Grossly normal nonenhanced CT appearance. Adrenal glands: Grossly normal nonenhanced CT appearance. Kidneys: Minimal perinephric stranding is present with tiny amount of fluid adjacent to the right kid tyrese. No hydronephrosis is present. No renal calculi are seen. Urinary Bladder: Falk catheter in place. Small amount of gas is seen in the urinary bladder likely d ue to catheterization. Reproductive organs: Within normal limits for patient's age. Bowel: Colonic diverticulosis is present. Loops of small bowel are normal in caliber. Vessels: Vascular calcifications are seen in the abdominal aorta and involving the iliac arteries. A right common femoral vein central venous catheter is noted in place. Adenopathy:No lymphadenopathy within the abdomen or pelvis. Peritoneum: No free fluid or fluid collection is seen. No free intraperitoneal gas is identified. Abdominal wall: Subcutaneous edema is seen at the lateral aspects of the abdomen and extending into t he gluteal regions bilaterally. Osseous structures: Postsurgical changes thoracolumbar spine are noted with bipedicular screws and po sterior rods in the T11, T12, and L2 vertebral bodies which transfix a burst fracture of the L1 vertebral body. There is fusion of the T8 and T9 vertebral bodies. Unilateral right-sided pars defect is seen at L5. Mild degenerative changes are seen in the spine. IMPRESSION: 1. Distention of the gallbladder with subtle increased density seen layering dependently within the g allbladder lumen which could be related to sludge and/or gallbladder calculi. Trace adjacent inflammatory stranding is present. Cholecystitis in the correct clinical scenario cannot be entirely excluded. Depending on clinical concern, a gallbladder ultrasound may be helpful for further evaluation. 2. Small right and tiny left pleural effusions with associated passive atelectasis. 3. Nodular ill-defined density within the left lower lobe. This could be related to focal area of pne umonitis. Follow-up evaluation is suggested. Minimal nonspecific linear densities are also seen in each perihilar region. 4. Endotracheal tube and nasogastric tubes noted in place. 5. No evidence of hydronephrosis. Minimal perinephric stranding is present bilaterally with tiny amou nt of fluid adjacent to the right kidney. 6. Additional findings are as described above.
[2018-12-24 16:09] LABS: #Lymphocytes 0.4 thou/uL (1.20-3.40); #Monocytes 0.5 thou/uL (0.11-0.59); #Neutrophils 9.3 thou/uL (1.40-6.50); %Basophils 0.2 % (0.0-1.0); %Eosinophils 0.1 % (0.0-10.0); %Lymphocytes 4.1 % (21.0-51.0); %Neutrophils 90.7 % (42.0-75.0); Hemoglobin 11.6 g/dL (12.0-16.0); Mean Corpuscular HGB CONC 31.6 g/dL (32.0-36.0); Mean Corpuscular Hemoglobin 31.7 pg (27.0-31.0); Mean Platelet Volume 7.7 fL (7.4-10.4); Platelet Count 114 thou/uL (130-400); RBC Distribution Width 12.8 % (11.5-14.5); Red Blood Cell (RBC) Count 3.66 mill/uL (4.20-5.40); White Blood Cell (WBC) Count 10.3 thou/uL (4.8-10.8)
[2018-12-24 16:29] LABS: ALT (SGPT) 45 U/L (8-55); AST (SGOT) 36 U/L (5-34); Albumin 3.5 g/dL (3.5-5.0); Alkaline Phosphatase 52 U/L (40-110); Anion Gap 11 mmol/L (10-20); BUN (Urea Nitrogen) 21 mg/dL (9.8-20.1); Bilirubin, Total 0.2 mg/dL (0.2-1.2); Calc. Creatinine Clearance 144 mL/min (70-130); Calcium 8.8 mg/dL (7.8-10.44); Carbon Dioxide 30 mmol/L (22-29); Chloride 116 mmol/L (98-107); Estimated GFR-MDRD 78; Globulin 2.3 g/dL (2.4-3.5); Glucose 138 mg/dL (70-105); Magnesium 2.6 mg/dL (1.6-2.6); Potassium 3.8 mmol/L (3.5-5.1); Protein, Total 5.8 g/dL (6.0-8.3); Sodium 153 mmol/L (136-145)
--- NOTE | 2018-12-24 17:25 | PDOC.HOSPP ---
- Subjective Encounter Date: 12/24/18 Encounter Time: 14:00 Subjective: f/u prolonged anoxic brain injury after cardiac arrest on [facility] ventilation. Family pursuing options for organ donation. - Objective Vital Signs & Weight: Vital Signs (12 hours) Pulse Resp BP Pulse Ox 12/24/18 16:00 16 12/24/18 15:45 75 133/80 12/24/18 14:00 16 12/24/18 13:59 89 140/81 12/24/18 12:00 16 12/24/18 10:24 90 150/94 H 12/24/18 10:00 16 12/24/18 09:00 16 100 12/24/18 07:53 97 163/108 H 12/24/18 06:00 16 Weight Admit Weight 240 lb 4.862 oz Weight 240 lb 4.862 oz Most Recent Monitor Data Heart Rate from ECG 84 NIBP 127/73 NIBP BP-Mean 91 Respiration from ECG 20 SpO2 100 I&O: 12/23/18 12/24/18 12/25/18 06:59 06:59 06:59 Intake Total 2343 1954 80 Output Total 1321 5316 1565 Balance 5673 -326 -6472 Result Diagrams: 12/24/18 16:02 12/24/18 16:02 Additional Labs: Laboratory Tests 12/21/18 12/21/18 12/21/18 05:48 07:51 21:05 WBC 10.5 Hgb 11.2 L Neutrophils % 84.1 H Sodium 147 H Potassium 3.3 L Phosphorus 4.3 Magnesium 2.2 Urine Opiates Screen Detected H Ur Amphetamines Screen Detected H U Methamphetamines Scrn Detected H U Benzodiazepines Scrn Detected H U Cannabinoids Screen Detected H 12/22/18 12/22/18 04:00 04:00 WBC Hgb Neutrophils % 92.5 H Sodium Potassium Phosphorus 4.1 Magnesium 2.1 Urine Opiates Screen Ur Amphetamines Screen U Methamphetamines Scrn U Benzodiazepines Scrn U Cannabinoids Screen Radiology Reviewed by me: Yes (PCXR - L basilar atelectasis) EKG Reviewed by me: Yes (Tele - SR) Hospitalist ROS - Medication Medications: Active Medications Generic Name Dose Route Start Last Admin Trade Name Freq PRN Reason Stop Dose Admin Albuterol/Ipratropium 3 ml 12/21/18 10:00 12/24/18 15:45 Duoneb NEB 3 ml [id number] MONTSE Administration Enoxaparin Sodium 40 mg 12/21/18 09:00 12/24/18 09:10 Lovenox SC 40 mg 0900 MONTSE Administration Levofloxacin 750 mg/ Device 150 mls @ 100 mls/hr 12/21/18 08:00 12/24/18 07: 06 IVPB 150 mls Q24HR MONTSE Administration Potassium Phosphate 9 mmol/ 103 mls @ 25.75 mls/hr 12/21/18 07:43 12/23/18 17 :12 Sodium Chloride IVPB 103 mls ASDIR PRN Administration Phosphate 1.0-1.8 Fentanyl Citrate 2,000 mcg/ 100 mls @ 0 mls/hr 12/21/18 07:44 12/23/18 19:03 Sodium Chloride IV 01/20/19 07:44 100 mls INF MONTSE Administration Protocol Per Protocol Sodium Chloride 1,000 mls @ 75 mls/hr 12/23/18 08:30 12/24/18 11:55 1/2 Normal Saline IV 1,000 mls .[id number] MONTSE Administration Methylprednisolone Sodium Succinate 60 mg 12/21/18 12:00 12/24/18 12:02 Solu-Medrol IVP 60 mg Q6HR MONTSE Administration Montelukast Sodium 10 mg 12/21/18 09:00 12/24/18 09:10 Singulair PER TUBE 10 mg DAILY MONTSE Administration Pantoprazole Sodium 40 mg 12/21/18 09:00 12/24/18 09:11 Protonix IVP 40 mg DAILY MONTSE Administration Potassium Chloride 40 meq 12/21/18 07:43 12/21/18 21:46 Klor-Con PER TUBE 40 meq ASDIR PRN Administration FOR SERUM K+ 2.5-3.5 Propofol 1,000 mg 12/21/18 07:44 12/24/18 16:17 Diprivan IV 01/20/19 07:44 1,000 mg INF PRN Administration TO ACHIEVE GOAL RASS Protocol Vecuronium [place] 10 mg 12/21/18 07:37 12/24/18 13:21 Norcuron IVP 10 mg Q30MIN PRN Administration Agitation - Exam General Appearance: ill appearing General - other findings: somnolent, unresponsive, mech ventilation ENT: normocephalic atraumatic, no oropharyngeal lesions ENT - other findings: ETT in place Neck: supple, symmetric, no JVD, no thyromegaly Heart: RRR, no murmur, no gallops, no rubs, normal peripheral pulses Respiratory - other findings: prolonged exp phase and wheezes Gastrointestinal: soft, non-distended, diminished bowl sounds Extremities: no cyanosis Skin: normal turgor Psychiatric: lethargic Psychiatric - other findings: Unresponsive Hosp A/P (1) Cardiac arrest Code(s): I46.9 - CARDIAC ARREST, CAUSE UNSPECIFIED Status: Acute Plan: Plan for organ donation per protocol and after discussing with family (2) Acute on chronic respiratory failure with hypoxia and hypercapnia Code(s): J96.21 - ACUTE AND CHRONIC RESPIRATORY FAILURE WITH HYPOXIA; J96.22 - ACUTE AND CHRONIC RESPIRATORY FAILURE WITH HYPERCAPNIA Status: Acute (3) Polysubstance abuse Code(s): F19.10 - OTHER PSYCHOACTIVE SUBSTANCE ABUSE, UNCOMPLICATED Status: Acute (4) Hypernatremia Code(s): E87.0 - HYPEROSMOLALITY AND HYPERNATREMIA Status: Acute (5) Hypoxic brain injury Code(s): G93.1 - ANOXIC BRAIN DAMAGE, NOT ELSEWHERE CLASSIFIED Status: Acute Plan: Terminal event (6) Acute anoxic encephalopathy Code(s): G93.1 - ANOXIC BRAIN DAMAGE, NOT ELSEWHERE CLASSIFIED Status: Acute Plan: Terminal event, organ donation requested - Plan continue antibiotics, adoption social worker, DVT proph w/SCDs Continue critical support pending withdrawal of care Continue SIMV Continue Levaquin Family wishing to pursue withdrawal of care/organ donation Continue IVF NS
[2018-12-24 18:02] LABS: #Lymphocytes 0.4 thou/uL (1.20-3.40); #Monocytes 0.4 thou/uL (0.11-0.59); #Neutrophils 8.4 thou/uL (1.40-6.50); %Eosinophils 0.1 % (0.0-10.0); %Lymphocytes 4.1 % (21.0-51.0); %Monocytes 4.4 % (0.0-10.0); %Neutrophils 91.4 % (42.0-75.0); Mean Corpuscular HGB CONC 31.6 g/dL (32.0-36.0); Mean Corpuscular Hemoglobin 31.8 pg (27.0-31.0); Mean Platelet Volume 7.6 fL (7.4-10.4); Platelet Count 113 thou/uL (130-400); RBC Distribution Width 12.8 % (11.5-14.5); Red Blood Cell (RBC) Count 3.47 mill/uL (4.20-5.40); White Blood Cell (WBC) Count 9.1 thou/uL (4.8-10.8)
[2018-12-24 18:07] LABS: INR-International Normal Ratio 1.2; PTT 20.6 SEC (22.9-36.1); Prothrombin Time 14.7 SEC (12.0-14.7)
[2018-12-24 18:21] LABS: ALT (SGPT) 43 U/L (8-55); AST (SGOT) 35 U/L (5-34); Albumin 3.3 g/dL (3.5-5.0); Alkaline Phosphatase 50 U/L (40-110); Anion Gap 9 mmol/L (10-20); BUN (Urea Nitrogen) 21 mg/dL (9.8-20.1); Bilirubin, Total 0.2 mg/dL (0.2-1.2); Calc. Creatinine Clearance 154 mL/min (70-130); Calcium 8.8 mg/dL (7.8-10.44); Carbon Dioxide 29 mmol/L (22-29); Chloride 118 mmol/L (98-107); Estimated GFR-MDRD 84; Globulin 2.2 g/dL (2.4-3.5); Glucose 151 mg/dL (70-105); Magnesium 2.5 mg/dL (1.6-2.6); Potassium 3.7 mmol/L (3.5-5.1); Protein, Total 5.5 g/dL (6.0-8.3); Sodium 152 mmol/L (136-145)
[2018-12-24 18:24] LABS: Phosphorus 1.8 mg/dL (2.3-4.7)
[2018-12-24 18:46] LABS: Actual Bicarbonate (HCO3a) 30.6 mEq/L (22-28); Base Excess (BEa) 3.1 mEq/L (-2.0 to +3.0); Calcium, Ionized 1.22 mmol/L (1.12-1.30); Carboxyhemoglobin (COHb) 0.5 gm% (0.0-3.0); Hemoglobin (Hb) 11.6 g/dL (12.0-16.0); O2 Tension (PaO2) 133.2 mmHg (80.0-100.0); Potassium - ABG Lab 3.68 mmol/L (3.70-5.30); pH, Arterial 7.31 (7.35-7.45)
[2018-12-24 18:49] LABS: CO2 Tension 61.8 mmHg (35.0-45.0); Puncture Site ALINE
[2018-12-24] MEDS: fentaNYL Citrate/PF 2,000 MCG in Sodium Chloride 0.9% 60 ML IV SCH (19:05)
[2018-12-24] MEDS ORDERED: Morphine 10 MG/ML VIAL SLOW IVP PRN (20:34)
[2018-12-24] MEDS ORDERED: Lorazepam 2 MG/ML VIAL SLOW IVP PRN (20:35)
[2018-12-24 21:56] VITALS: BP 115/64
[2018-12-24 22:26] LABS: Bilirubin Negative (Negative); Blood, Urine 2+ (Negative); Clarity Clear (Clear); Glucose, Urine (Dipstick) Normal (Negative); Leukocyte Negative Leu/uL (Negative); Nitrite Negative (Negative); Protein, Urine (Dipstick) 10 mg/dL (Neg-Trace); Squamous Epithelial None Seen HPF (0-3); Urobilinogen Normal mg/dL (Less than 2)
[2018-12-24 22:35] LABS: Bacteria/HPF 1+ HPF (None Seen); RBC/HPF 21-50 HPF (0-3)
[2018-12-24] MEDS: Fentanyl 100 MCG/2 ML VIAL SLOW IVP PRN (23:45)
[2018-12-25] MEDS: Fentanyl 100 MCG/2 ML VIAL SLOW IVP PRN (00:01)
[2018-12-25] MEDS: methylPREDNISolone Sod Succ 40 MG VIAL IVP SCH (01:03)
--- NOTE | 2018-12-25 08:45 | OP ---
DATE OF PROCEDURE: 12/24/2018 PROCEDURE PERFORMED: Right femoral arterial line. PREOPERATIVE DIAGNOSIS: Need for art line for possible DCD organ donation. POSTOPERATIVE DIAGNOSIS: Successful right femoral arterial line placement. DESCRIPTION OF PROCEDURE: A right femoral art line was placed by the modified Seldinger technique. The waveform was arterial. The line was sutured in position. Job ID: [id number]
--- NOTE | 2018-12-25 21:09 | DIS ---
DATE OF ADMISSION: 12/21/2018 DATE OF DISCHARGE: 12/25/2018 DATE OF EXPIRATION: 12/25/2018. FINAL DIAGNOSES: 1. Cardiac arrest with return of spontaneous circulation. 2. Acute on chronic hypoxic hypercapnic respiratory failure. 3. Polysubstance abuse. 4. Hypernatremia. 5. Hypoxic brain injury. 6. Acute anoxic encephalopathy. CONSULTATIONS: Dr. Connor with Pulmonology Critical Care Service. PERTINENT LABORATORY AND X-RAY FINDINGS: Sodium ranged between 145 to 153. Lactic acid level ranged between 0.8 to 0.9. Phosphorus level ranged between 1.8 to 2.2. Magnesium ranged between 2.5 to 2.6. AST ranged between 35 to 79, ALT ranged between 43 to 63. Troponin I ranged between 0.023 to 0.093. CBC showed a white blood cell count ranging between 9.7 to 12.2. Urine drug screen dated 12/21/2018, positive for opiates, amphetamines, methamphetamines, benzodiazepines, and cannabinoids. Portable chest x-ray dated 12/21/2018, showed left basilar atelectasis. CT of the brain without contrast dated 12/21/2018, showed diffuse hypoxic injury of the brain parenchyma with lacunar infarcts of the caudate head, left anterior limb internal capsule and central midbrain. 2D transthoracic echocardiogram dated 12/21/2018, showed ejection fraction of 50% to 55%. Mild mitral and tricuspid valve regurgitation. CT of the chest, abdomen and pelvis dated 12/24/2018, showed distention of the gallbladder with gallbladder sludge. Endotracheal and nasogastric tubes in appropriate positioning. No evidence of hydronephrosis. HOSPITAL COURSE: The patient was initially admitted to the Critical Care Unit after presenting status post cardiac arrest with return of spontaneous circulation. The patient was intubated in the emergency room and given aggressive pulmonary supportive management including IV Solu-Medrol, bronchodilator therapy, and fentanyl. The patient was placed on hypothermic protocol and transferred to [facility] for critical evaluation. The patient was placed in the Critical Care Unit, undergoing 2D transthoracic echocardiogram showing preserved ejection fraction. The patient continued on mechanical ventilation and was evaluated by the Pulmonary Critical Care Service. The patient was placed on initial FiO2 titrating to clinical response. The patient was noted with pupillary discrepancy with the left pupil appearing dilated and nonreactive. CT imaging of the brain showed diffuse hypoxic injury likely due to prolonged cardiac arrest. The patient was observed for approximately 72 hours in the critical care unit without change in clinical status or return of neurologic function. Discussions were had with the family regarding goals of care and likelihood of the patient's current presentation being a terminal event. Due to the patient's prolonged cardiac arrest, severe hypoxic cerebral injury and encephalopathy, the patient was transitioned to comfort care, at which point the family was pursuing organ donation. The patient underwent general organ donation protocol and proceeded with the procedure on 12/24/2018. The patient at 0010 on 12/25/2018, after terminal extubation and organ harvest. Family were notified and approved of all procedures and decedent affairs arranged for transport to [facility] in [place], [place]. Job ID: [id number]
== END 2018-12-25 00:10 | disposition expired | DRG 208 ==
LOC: ERS 05:41 → CCU 07:10
PROVIDERS: ADMIT Internal Medicine; ATTEND Internal Medicine
PROC: 0BH17EZ Insertion of Endotracheal Airway into Trachea, Via Natural or Artificial Opening (ICD-10-PCS; principal; 2018-12-21)
PROC: 5A1945Z Respiratory Ventilation, 24-96 Consecutive Hours (ICD-10-PCS; 2018-12-21)
PROC: 04HY32Z Insertion of Monitoring Device into Lower Artery, Percutaneous Approach (ICD-10-PCS; 2018-12-24)
DX: J44.1 Chronic obstructive pulmonary disease with (acute) exacerbation (principal); J96.22 Acute and chronic respiratory failure with hypercapnia; G93.41 Metabolic encephalopathy; R40.2312 Coma scale, best motor response, none, at arrival to emergency department; R40.2112 Coma scale, eyes open, never, at arrival to emergency department; R40.2212 Coma scale, best verbal response, none, at arrival to emergency department; J96.21 Acute and chronic respiratory failure with hypoxia; J45.902 Unspecified asthma with status asthmaticus; E87.0 Hyperosmolality and hypernatremia; G93.1 Anoxic brain damage, not elsewhere classified; Z51.5 Encounter for palliative care; G47.33 Obstructive sleep apnea (adult) (pediatric); E03.9 Hypothyroidism, unspecified; F41.9 Anxiety disorder, unspecified; Z96.653 Presence of artificial knee joint, bilateral; F19.10 Other psychoactive substance abuse, uncomplicated; F17.200 Nicotine dependence, unspecified, uncomplicated; Z88.5 Allergy status to narcotic agent; E87.6 Hypokalemia; I46.8 Cardiac arrest due to other underlying condition; B19.20 Unspecified viral hepatitis C without hepatic coma; Z52.9 Donor of unspecified organ or tissue
CPT/HCPCS: 36415; 70450; 71045; 71250; 74177; 80048; 80076; 80306; 81003; 81015; 82248; 82553; 82805; 83605; 83735; 84100; 84484; 85025; 85610; 85730; 90471; 90732; 93005; 93010; 93306; 94002; 94003; 94640; 94644; 96365; 96375; C9113; G0009; J1644; J1650; J1956; J2060; J2704; J2920; J2930; J3010; J3490; J7611; J7620